=== PATIENT | male | born 1960 | race Hispanic/Latino ===

== ENCOUNTER 2017-01-07 16:45 | Emergency (ER) | payer SELFPAY ==
[2017-01-07 17:08] VITALS: BMI 23.7
[2017-01-07 17:14] VITALS: RESP 18
--- NOTE | 2017-01-07 17:43 | ED PDOC ---
"Arrival/HPI - General Chief Complaint: ENT Problem Time Seen by Provider: 01/07/17 17:41 Historian: Patient - History of Present Illness Narrative History of Present Illness (Text): 01/07/17 17:43 This 56 yo male with pmh tobacco use, presents to this ED c/o a sensation of a mass in his throat x 2-3 months. Patient stated symptoms has worsen last 2 days , and he feels this could be cancer of his throat. Patient tolerates PO fluids , and meals. Denies other complains. Time/Duration: Other (see hpi) Context: Home Past Medical History - Provider Review Nursing Documentation Reviewed: Yes - Infectious Disease Hx of Infectious Diseases: None - Tetanus Immunization Tetanus Immunization: Unknown - Cardiac Hx Cardiac Disorders: Yes Hx Hypertension: Yes - Pulmonary Hx Respiratory Disorders: Yes Hx Chronic Obstructive Pulmonary Disease (COPD): Yes - Neurological Hx Neurological Disorder: Yes Hx Seizures: Yes - HEENT Hx HEENT Disorder: No - Renal Hx Renal Disorder: No - Endocrine/Metabolic Hx Endocrine Disorders: No - Hematological/Oncological Hx Blood Disorders: No - Integumentary Hx Dermatological Disorder: No Other/Comment: red rash to ble, left knee bruise and abrasion, left arm abrasions, unkempt with dirty hands fingernails and toenails, tatoos. reddness buttocks - Musculoskeletal/Rheumatological Hx Falls: Yes - Gastrointestinal Hx Irritable Bowel: No - Genitourinary/Gynecological Hx Genitourinary Disorders: No - Psychiatric Hx Psychophysiologic Disorder: No Hx Depression: No Hx Emotional Abuse: No Hx Physical Abuse: No Hx Substance Use: No - Surgical History Hx Musculoskeletal Surgery: Yes (carpal tunnel right) - Anesthesia Hx Anesthesia: Yes Hx Anesthesia Reactions: No Hx Malignant Hyperthermia: No - Suicidal Assessment Feels Threatened In Home Enviroment: No Family/Social History - Physician Review Nursing Documentation Reviewed: Yes Family/Social History: No Known Family HX Smoking Status: Current Some Days Smoker Hx Alcohol Use: Yes Frequency of alcohol use: Socially Hx Substance Use: No Hx Substance Use Treatment: No Allergies/Home Meds Allergies/Adverse Reactions: Allergies ibuprofen [From Motrin] Allergy (Verified 01/07/17 17:09) RASH zolpidem [From Ambien] Allergy (Verified 01/07/17 17:09) HEADACHE anti inflammatories Allergy (Intermediate, Uncoded 01/07/17 17:09) SWELLING Review of Systems - Review of Systems Constitutional: Normal. absent: Fatigue, Weight Change, Fevers Eyes: Normal ENT: Other (see hpi) Respiratory: Normal Cardiovascular: Normal Gastrointestinal: Normal Genitourinary Male: Normal Musculoskeletal: Normal Skin: Normal Neurological: Normal Endocrine: Normal Hemo/Lymphatic: Normal Psychiatric: Normal Physical Exam Vital Signs Temp Pulse Resp BP Pulse Ox 01/07/17 21:42 59 L 18 171/94 H 100 01/07/17 20:36 98.2 F 60 18 181/97 H 100 01/07/17 17:13 98.4 F 72 18 200/138 H 96 Temperature: Afebrile Blood Pressure: Normal Pulse: Regular Respiratory Rate: Normal Appearance: Positive for: Well-Appearing, Non-Toxic, Comfortable Pain Distress: None Mental Status: Positive for: Alert and Oriented X 3 - Systems Exam Head: Present: Atraumatic, Normocephalic Pupils: Present: PERRL Extroacular Muscles: Present: EOMI Conjunctiva: Present: Normal Mouth: Present: Moist Mucous Membranes Neck: Present: Normal Range of Motion Respiratory/Chest: Present: Clear to Auscultation, Good Air Exchange. No: Respiratory Distress, Accessory Muscle Use Cardiovascular: Present: Regular Rate and Rhythm, Normal S1, S2. No: Murmurs Abdomen: Present: Normal Bowel Sounds. No: Tenderness, Distention, Peritoneal Signs Back: Present: Normal Inspection. No: CVA Tenderness, Midline Tenderness, Paraspinal Tenderness Upper Extremity: Present: Normal Inspection, Normal ROM, NORMAL PULSES, Temperature Abnormalties, Capillary Refill < 2s. No: Cyanosis, Edema Lower Extremity: Present: Normal Inspection, NORMAL PULSES, Normal ROM, Neurovascularly Intact, Capillary Refill < 2 s. No: Edema, CALF TENDERNESS Neurological: Present: GCS=15, CN II-XII Intact, Speech Normal, Motor Func Grossly Intact, Normal Sensory Function, Normal Cerebellar Funct, Memory Normal Skin: Present: Warm, Dry, Normal Color. No: Rashes Psychiatric: Present: Alert, Oriented x 3, Normal Insight, Normal Concentration Medical Decision Making ED Course and Treatment: 01/07/17 22:15 Re-evaluation. Patient feels better. Discussed results and plan with patient who expresses understanding. All questions answered and there is agreement with the plan to discharge home with instructions. Patient stable for discharge. Return if symptoms persist or worsen. I spoke with Dr. Hall ENT, who reviewed CT scan of neck. He feels this is a benign cyst, and that patient can have it removed as out-pt. He said to have patient see him this week, or to go to [facility] clinic, if he ca not afford his visit fee. Re-evaluation Time: 22:15 Reassessment Condition: Re-examined, Unchanged - Lab Interpretations Lab Results: 01/07/17 18:00 01/07/17 18:00 Lab Results 01/07/17 19:25: Urine Color Yellow, Urine Appearance Sl cloudy, Urine pH 6.0, Ur Specific [place] >= 1.030, Urine Protein 30 H, Urine Glucose (UA) Negative, Urine Ketones Negative, Urine Blood Small H, Urine Nitrate Negative, Urine Bilirubin Negative, Urine Urobilinogen 0.2, Ur Leukocyte Esterase Negative, Urine RBC 2 - 5, Urine WBC 2 - 5, Ur Epithelial Cells 4 - 5, Urine Bacteria Mod 01/07/17 18:00: Sodium 139, Potassium 3.7, Chloride 102, Carbon Dioxide 28, Anion Gap 13, BUN 17, Creatinine 1.1, Est GFR ( Amer) > 60, Est GFR (Non- Af Amer) > 60, Random Glucose 98, Calcium 9.2, Total Bilirubin 0.6, AST 30, ALT 28, Alkaline Phosphatase 63, Total Protein 7.4, Albumin 4.2, Globulin 3.2, Albumin/Globulin Ratio 1.3 01/07/17 18:00: WBC 8.4 D, RBC 5.13, Hgb 14.1, Hct 41.7 L, MCV 81.3, MCH 27.5, MCHC 33.8, RDW 15.4 H, Plt Count 225, MPV 10.0, Gran % 65.8, Lymph % (Auto) 26.0 , [place] % (Auto) 6.4 H, Eos % (Auto) 1.0 L, Baso % (Auto) 0.8, Gran # 5.52, Lymph # 2.2, [place] # 0.5, Eos # 0.1, Baso # 0.07 - RAD Interpretation Narrative RAD Interpretations (Text): 01/07/17 22:02 EXAM: CT Neck With Intravenous Contrast CLINICAL HISTORY: 56 years old, male; Signs and symptoms; Other: ? Foreign body feeling in throat ; Mass, lump, or FINDINGS: Brain: No acute abnormalities are seen in visualized portion of the brain. Sinuses: There is no acute sinusitis. There are retention cysts/polyps in the sinuses Ears and mastoids Middle ears and mastoids are unremarkable Orbits: Orbital contents are unremarkable. Tonsils and adenoids: Tonsils and adenoids are unremarkable. Deep facial spaces: Parapharyngeal spaces are symmetric. There are no facial masses. There is no recurrent pharyngeal/prevertebral soft tissue swelling Salivary glands: Parotid and submandibular glands are unremarkable. Airway: Nasal cavity nasopharynx and oropharynx are unremarkable. There is a fluid density mass filling the right vallecula. Left vallecula is distended with air. Epiglottis and aryepiglottic folds are unremarkable. There is healed interval is unremarkable. Subglottic trachea is normal in caliber. Thyroid: Thyroid is heterogeneous. The Vascular: There are vascular calcifications. Nodes: There is no pathologic adenopathy. Lung apices Lung apices are clear. There are multiple small blebs at the lung apices. Bony structures: There are degenerative changes in the spine. Patient is edentulous. IMPRESSION: 6.x 19 fluid density mass in the right vallecula possibly foreign body, no airway obstruction Direct visualization advised EXAM: CT Chest With Intravenous Contrast CLINICAL HISTORY: FINDINGS: Artifacts: Motion artifact degrades image quality. RENETTA MENDES | Final Radiology Report Lungs and pleural spaces: Trachea and main bronchi are patent. There is apical blebs. There is a calcified right upper lobe granuloma. The lungs are hyperinflated. There is no focal consolidation. There no effusions. Heart and vasculature: Heart size is at the upper limits of normal.There is trace fluid in pericardial recesses. Ascending aorta is prominent, 3.9 cm in diameter.Pulmonary vessels are unremarkable.There are vascular calcifications. Mediastinum: There are no pathologically enlarged mediastinal nodes. Esophagus is incompletely distended ureter and there is a small amount of fluid in the upper esophagus. There is a minimal amount of air in the mid and distal esophagus. No radio opaque foreign bodies are seen in the esophagus. There is a small hiatal hernia. Thyroid: Thyroid is not optimally demonstrated. Bones/joints: Bony structures are mildly osteopenic. There are degenerative changes. Soft tissues: unremarkable Upper abdomen: There are no acute abnormalities in the visualized portion of the abdomen. There is a small left adrenal nodule. There is mild dilatation of the infrarenal abdominal aorta, 3.2 cm maximal dimension. Air-fluid levels in proximal small bowel IMPRESSION: No acute disease in the chest, no radiopaque foreign body seen in the esophagus Additional findings as described above. Thank you for allowing us to participate in the care of your patient. Dictated and Authenticated by: Demetria Moody MD 01/07/2017 9:29 PM Eastern Time ([place] & [place]) Radiology Orders: 01/07/17 17:45 NECK,CHEST WITH CONTRAST [CT] Stat - Medication Orders Current Medication Orders: Discontinued Medications Cephalexin Monohydrate (Keflex) 500 mg PO STAT STA PRN Reason: Protocol Stop: 01/07/17 22:15 Last Admin: 01/07/17 22:37 Dose: 500 mg Sodium Chloride (Sodium Chloride 0.9%) 1,000 mls @ 999 mls/hr IV .Q1H1M STA Stop: 01/07/17 18:46 Last Admin: 01/07/17 17:52 Dose: 999 mls/hr Iohexol (Omnipaque 350 100 Ml) Confirm Administered Dose 350 mg .ROUTE .STK-MED ONE Stop: 01/07/17 18:46 Disposition/Present on Arrival - Present on Arrival Any Indicators Present on Arrival: No History of DVT/PE: No History of Uncontrolled Diabetes: No Urinary Catheter: No History of Decub. Ulcer: No History Surgical Site Infection Following: None - Disposition Have Diagnosis and Disposition been Completed?: Yes Diagnosis: Vallecular cyst, Pyuria Disposition: HOME/ ROUTINE Disposition Time: 22:16 Patient Plan: Discharge Condition: GOOD Additional Instructions: Call Dr. Nguyen ENT doctor office tomorrow to follow up visit. If you do not want to see Dr. Nguyen, you will need to go to [facility] clinic for further evaluation of your throat problem. Take medication as instructed. Call Urologist for further evaluation. Return to emergency if symptoms worsen. Department of Otolaryngology - Head and Neck Surgery [address] [facility] [address] [place] [id number] Prescriptions: Cephalexin [cephalexin] 500 mg PO BID #20 cap Referrals: Fredy Nguyen DO [Doctor Osteopathy] - Follow up with primary Ron Wilson MD [Staff Provider] - Follow up with primary [facility] [Outside] - Follow up with primary [facility] [Outside] - Follow up with primary"
[2017-01-07] MEDS ORDERED: Sodium Chloride 0.9% 1,000 ML IV STA (17:46)
[2017-01-07 18:15] LABS: BASO # 0.07 K/mm3 (0.0-2.0); BASO % 0.8 % (0.0-3.0); EOS # 0.1 (0.0-0.7); GRAN # 5.52 (1.4-6.5); GRAN % 65.8 % (50.0-68.0); HEMOGLOBIN 14.1 gm/dL (14.0-18.0); LYMPH # 2.2 (1.2-3.4); MEAN CELL VOLUME 81.3 fL (80.0-105.0); MEAN CORPUSCULAR HEMOGLOBIN 27.5 pg (25.0-35.0); MEAN CORPUSCULAR HGB CONC 33.8 g/dl (31.0-37.0); MONO # 0.5 (0.1-0.6); MONO % 6.4 % (1.0-6.0); PLATELET COUNT 225 10^3/uL (120.0-450.0); RBC 5.13 10^6/uL (3.5-6.1); RED CELL DISTRIBUTION WIDTH 15.4 % (11.5-14.5); WHITE BLOOD COUNT 8.4 10^3/ul (4.5-11.0)
[2017-01-07 18:25] LABS: ALB/GLOB RATIO 1.3 (1.1-1.8); ALBUMIN 4.2 g/dL (3.0-4.8); ALT/SGPT 28 U/L (7-56); AST/SGOT 30 U/L (15-59); BLOOD UREA NITROGEN 17 mg/dL (7-21); CALCIUM 9.2 mg/dL (8.4-10.5); GFR AFRICAN-AMERICAN > 60; GFR NON-AFRICAN AMERICAN > 60
[2017-01-07] MEDS ORDERED: Iohexol 350 MG/100 ML VIAL ONE (18:45)
[2017-01-07 19:34] LABS: URINE BILIRUBIN NEGATIVE (NEGATIVE); URINE BLOOD SMALL (NEGATIVE); URINE GLUCOSE (UA) NEGATIVE (NEGATIVE); URINE LEUKOCYTE ESTERASE NEGATIVE Leu/uL (NEGATIVE); URINE NITRATE NEGATIVE (NEGATIVE); URINE PROTEIN 30 mg/dL (<30 mg/dL); URINE UROBILINOGEN 0.2 E.U./dL (<1 E.U./dL)
[2017-01-07 19:38] LABS: URINE APPEARANCE SL CLOUDY (CLEAR); URINE COLOR YELLOW (YELLOW)
[2017-01-07 20:05] LABS: URINE BACTERIA MOD (NEG)
[2017-01-07 20:37] VITALS: TEMP 98.2; O2SAT 100
--- NOTE | 2017-01-07 21:29 | CT ---
EXAM: CT Neck With Intravenous Contrast CLINICAL HISTORY: 56 years old, male; Signs and symptoms; Other: ? Foreign body feeling in throat; Mass, lump, or swelling in neck; Additional info: Fb sensation on his throat R/O mass TECHNIQUE: Axial computed tomography images of the neck with intravenous contrast. This CT exam was performed using one or more of the following dose reduction techniques: automated exposure control, adjustment of the mA and/or kV according to patient size, and/or use of iterative reconstruction technique. Coronal and sagittal reformatted images were created and reviewed. CONTRAST: 95 mL of omni 350 administered intravenously. COMPARISON: There are no prior studies for comparison. FINDINGS: Brain: No acute abnormalities are seen in visualized portion of the brain. Sinuses: There is no acute sinusitis. There are retention cysts/polyps in the sinuses Ears and mastoids Middle ears and mastoids are unremarkable Orbits: Orbital contents are unremarkable. Tonsils and adenoids: Tonsils and adenoids are unremarkable. Deep facial spaces: Parapharyngeal spaces are symmetric. There are no facial masses. There is no recurrent pharyngeal/prevertebral soft tissue swelling Salivary glands: Parotid and submandibular glands are unremarkable. Airway: Nasal cavity nasopharynx and oropharynx are unremarkable. There is a fluid density mass filling the right vallecula. Left vallecula is distended with air. Epiglottis and aryepiglottic folds are unremarkable. There is healed interval is unremarkable. Subglottic trachea is normal in caliber. Thyroid: Thyroid is heterogeneous. The Vascular: There are vascular calcifications. Nodes: There is no pathologic adenopathy. Lung apices Lung apices are clear. There are multiple small blebs at the lung apices. Bony structures: There are degenerative changes in the spine. Patient is edentulous. IMPRESSION: 6.x 19 fluid density mass in the right vallecula possibly foreign body, no airway obstruction Direct visualization advised EXAM: CT Chest With Intravenous Contrast CLINICAL HISTORY: 56 years old, male; Signs and symptoms; Other: ? Foreign body feeling in throat; Mass, lump, or swelling in neck; Additional info: Fb sensation on his throat R/O mass TECHNIQUE: Axial computed tomography images of the chest with intravenous contrast. This CT exam was performed using one or more of the following dose reduction techniques: automated exposure control, adjustment of the mA and/or kV according to patient size, and/or use of iterative reconstruction technique. Coronal and sagittal reformatted images were created and reviewed. CONTRAST: 95 mL of omni 350 administered intravenously. EXAM DATE/TIME: 01/07/2017 5:45 PM COMPARISON: There are no prior studies for comparison. FINDINGS: Artifacts: Motion artifact degrades image quality. Lungs and pleural spaces: Trachea and main bronchi are patent. There is apical blebs. There is a calcified right upper lobe granuloma. The lungs are hyperinflated. There is no focal consolidation. There no effusions. Heart and vasculature: Heart size is at the upper limits of normal.There is trace fluid in pericardial recesses. Ascending aorta is prominent, 3.9 cm in diameter.Pulmonary vessels are unremarkable.There are vascular calcifications. Mediastinum: There are no pathologically enlarged mediastinal nodes. Esophagus is incompletely distended ureter and there is a small amount of fluid in the upper esophagus. There is a minimal amount of air in the mid and distal esophagus. No radio opaque foreign bodies are seen in the esophagus. There is a small hiatal hernia. Thyroid: Thyroid is not optimally demonstrated. Bones/joints: Bony structures are mildly osteopenic. There are degenerative changes. Soft tissues: unremarkable Upper abdomen: There are no acute abnormalities in the visualized portion of the abdomen. There is a small left adrenal nodule. There is mild dilatation of the infrarenal abdominal aorta, 3.2 cm maximal dimension. Air-fluid levels in proximal small bowel IMPRESSION: No acute disease in the chest, no radiopaque foreign body seen in the esophagus Additional findings as described above.
[2017-01-07 21:49] VITALS: PULSE 59
[2017-01-07 22:31] VITALS: BP 171/94
--- NOTE | 2017-01-08 10:52 | CARD ---
APPROVED REPORT EKG Measurement Heart [id number] <Conclusion> Normal sinus rhythm Left axis deviation Incomplete right bundle branch block Voltage criteria for left ventricular hypertrophy Abnormal ECG
== END 2017-01-07 22:39 | disposition home or self-care (01) ==
LOC: ED 16:45
DX: J38.7 Other diseases of larynx (principal); N39.0 Urinary tract infection, site not specified; F17.200 Nicotine dependence, unspecified, uncomplicated; I10 Essential (primary) hypertension
CPT/HCPCS: 70491; 71260; 80053; 81001; 85025; 93005; 96360; 99284; J7040; Q9967

== ENCOUNTER 2017-10-29 12:09 | Inpatient (IN) | payer MEDICAID ==
[2017-10-29] MEDS ORDERED: Labetalol 5 mg/ml Inj 20ML IV STA ×3 (12:38→14:34)
--- NOTE | 2017-10-29 12:40 | ED PDOC ---
Arrival/HPI - General Chief Complaint: High Blood Pressure Time Seen by Provider: 10/29/17 12:36 Historian: Patient - History of Present Illness Narrative History of Present Illness (Text): 10/29/17 12:40 56 year old male, whose PMH includes hypertension and COPD, who presents to the emergency department complaining of forgetfulness and elevated blood pressure. Patient reports he is non-compliant to his hypertension medication due to his forgetfulness. He states forgetting how he got home and also complains of a headache associated with left side of face soreness that radiates to his left arm. He also notes having less sensation on the left side of face compared to right side. Patient has no other complaints. PMD: Dr. Franco Shake Packer: Dr. Baxter Time/Duration: Prior to Arrival Symptom Onset: Sudden Symptom Course: Unchanged Past Medical History - Provider Review Nursing Documentation Reviewed: Yes - Infectious Disease Hx of Infectious Diseases: None - Tetanus Immunization Tetanus Immunization: Unknown - Cardiac Hx Cardiac Disorders: Yes Hx Hypertension: Yes - Pulmonary Hx Respiratory Disorders: Yes Hx Chronic Obstructive Pulmonary Disease (COPD): Yes - Neurological Hx Neurological Disorder: Yes Hx Seizures: Yes - HEENT Hx HEENT Disorder: No - Renal Hx Renal Disorder: No - Endocrine/Metabolic Hx Endocrine Disorders: No - Hematological/Oncological Hx Blood Disorders: No - Integumentary Hx Dermatological Disorder: No Other/Comment: red rash to ble, left knee bruise and abrasion, left arm abrasions, unkempt with dirty hands fingernails and toenails, tatoos. reddness buttocks - Musculoskeletal/Rheumatological Hx Falls: Yes - Gastrointestinal Hx Irritable Bowel: No - Genitourinary/Gynecological Hx Genitourinary Disorders: No - Psychiatric Hx Psychophysiologic Disorder: No Hx Depression: No Hx Emotional Abuse: No Hx Physical Abuse: No Hx Substance Use: No - Surgical History Hx Musculoskeletal Surgery: Yes (carpal tunnel right) - Anesthesia Hx Anesthesia: Yes Hx Anesthesia Reactions: No Hx Malignant Hyperthermia: No - Suicidal Assessment Feels Threatened In Home Enviroment: No Family/Social History - Physician Review Nursing Documentation Reviewed: Yes Family/Social History: Unknown Family HX Smoking Status: Current Some Days Smoker Hx Alcohol Use: Yes Hx Substance Use: No Hx Substance Use Treatment: No Allergies/Home Meds Allergies/Adverse Reactions: Allergies ibuprofen [From Motrin] Allergy (Verified 10/29/17 15:57) RASH naproxen [From Aleve] Allergy (Verified 10/29/17 15:57) ANAPHYLAXIS zolpidem [From Ambien] Allergy (Verified 10/29/17 15:57) HEADACHE anti inflammatories Allergy (Intermediate, Uncoded 10/29/17 15:57) SWELLING Home Medications: Home Meds Medication Instructions Recorded Confirmed Clopidogrel [Plavix] 75 mg PO DAILY 10/29/17 10/29/17 Valsartan [Diovan] 160 mg PO DAILY 10/29/17 10/29/17 amLODIPine [Norvasc] 1 tab PO DAILY 10/29/17 10/29/17 Review of Systems - Review of Systems Constitutional: absent: Fevers Eyes: absent: Vision Changes ENT: absent: Sore Throat Respiratory: absent: SOB Cardiovascular: Other (HTN). absent: Chest Pain Gastrointestinal: absent: Abdominal Pain Genitourinary Male: absent: Dysuria Musculoskeletal: absent: Back Pain Skin: absent: Rash Neurological: Headache, Focal Weakness (left sided weakness). absent: Speech Changes Physical Exam Vital Signs Reviewed: Yes Vital Signs Temp Pulse Pulse Resp BP BP Pulse Ox 10/29/17 16:16 61 16 161/103 H 97 10/29/17 15:53 66 191/105 H 10/29/17 15:08 63 184/107 H 10/29/17 15:01 63 16 179/112 H 97 10/29/17 14:23 68 188/110 H 10/29/17 13:03 77 16 167/115 H 98 10/29/17 13:00 77 227/125 H 10/29/17 12:45 77 227/135 H 10/29/17 12:42 97.9 F 91 H 18 227/135 H 96 10/29/17 12:28 97.9 F 91 H 18 227/135 H 96 Temperature: Afebrile Blood Pressure: Hypertensive Pulse: Tachycardic Respiratory Rate: Normal Appearance: Positive for: Well-Appearing, Non-Toxic, Comfortable Pain Distress: None Mental Status: Positive for: Alert and Oriented X 3 - Systems Exam Head: Present: Atraumatic, Normocephalic Pupils: Present: PERRL Extroacular Muscles: Present: EOMI Conjunctiva: Present: Normal Mouth: Present: Moist Mucous Membranes Neck: Present: Normal Range of Motion Respiratory/Chest: Present: Clear to Auscultation, Good Air Exchange. No: Respiratory Distress, Accessory Muscle Use, Wheezes, Rales, Rhonchi Cardiovascular: Present: Regular Rate and Rhythm, Normal S1, S2. No: Murmurs Abdomen: Present: Normal Bowel Sounds. No: Tenderness, Distention, Peritoneal Signs, Rebound, Guarding Upper Extremity: Present: Normal ROM, NORMAL PULSES, Tenderness (tenderness on ulnar left arm in elbow and jaw ), Neurovascularly Intact, Capillary Refill < 2s. No: Normal Inspection, Temperature Abnormalties, Deformity Lower Extremity: Present: Normal Inspection Neurological: Present: GCS=15, CN II-XII Intact, Speech Normal, Motor Func Grossly Intact. No: Normal Sensory Function (left sided weakness ) Skin: Present: Warm, Dry, Normal Color. No: Rashes Psychiatric: Present: Alert, Oriented x 3, Normal Insight, Normal Concentration Medical Decision Making ED Course and Treatment: 10/29/17 Impression: 56 year old male with tenderness on left arm ulnar side and left sided jaw Differential Diagnosis included but are not limited to: hypertension urgency vs. cardiac Plan: -- CT head -- EKG -- Chest X-ray -- Labs -- Trandate -- Urinalysis -- Reassess and disposition Progress Notes: EKG: Ordered, reviewed, and independently interpreted the EKG. Rate : 77 BPM Rhythm : NSR Interpretation : LAD. syncope BBB. no change from previous Comparison : 05/07/2017 10/29/17 13:30 On reevaluation, patient's high blood pressure has improved after Labetolol IV 10mg, then 20mg then Clonidine and Labetolol 40mg IV again. 10/29/17 14:35 Case was discussed with Dr. Saleh who advices to admit under hospitalist. 10/29/2017 14:40 Case discussed with senior medical writer, under supervision of Dr. Birmingham, who is aware of plan in admitting patient to telemetry. 10/29/17 14:40 Chest X-ray: Creator : Gelacio Calix MD COMPARISON: 05/07/2017 FINDINGS: LUNGS: Clear. PLEURA: No pneumothorax or pleural fluid seen. CARDIOVASCULAR: Normal. OSSEOUS STRUCTURES: No significant abnormalities. VISUALIZED UPPER ABDOMEN: Normal. OTHER FINDINGS: None. IMPRESSION: No active disease. 10/29/17 15:[address]: Creator : Alirio Figueroa MD FINDINGS: HEMORRHAGE:No intracranial hemorrhage. BRAIN:Normal black-white matter differentiation and density are appreciated throughout the cerebrum and cerebellum with the brainstem appearing unremarkable as well. There is no mass effect. There is no suspicious extra- axial fluid collection and the midline brain anatomy appears diffusely unremarkable. Probable dilated perivascular space is seen at the inferior right basal ganglia once again. VENTRICLES:Unremarkable. No hydrocephalus. CALVARIUM:Unremarkable. PARANASAL SINUSES:Unremarkable as visualized. No significant inflammatory changes. MASTOID AIR CELLS:Left maxi sinus polyp or cyst with remaining sinuses now clear in the interval. OTHER FINDINGS:None. IMPRESSION: No acute intracranial findings with examination gently remaining grossly normal-appearing intracranially. The incidental prior diffuse sinusitis pattern appears to have largely resolved with exception of a asir-gd-pepriivu left maxillary sinus polyp or retention cyst. - Critical Care Critical Care Minutes: 30 minutes - Lab Interpretations Lab Results: 10/29/17 12:55 10/29/17 12:55 Lab Results 10/29/17 12:55: TSH 3rd Generation 0.33 L 10/29/17 12:55: Triglycerides 109, Cholesterol 182, LDL Cholesterol Direct 85, HDL Cholesterol 67 H 10/29/17 12:55: Sodium 143, Potassium 4.1, Chloride 106, Carbon Dioxide 25, Anion Gap 16, BUN 16, Creatinine 1.0, Est GFR ( Amer) > 60, Est GFR (Non- Af Amer) > 60, Random Glucose 91, Calcium 9.6, Magnesium 1.8, Total Bilirubin 0.6, AST 24, ALT 28, Alkaline Phosphatase 76, Lactate Dehydrogenase 444, Total Creatine Kinase 42, Troponin I < 0.01, Total Protein 7.5, Albumin 4.3, Globulin 3.2, Albumin/Globulin Ratio 1.3 10/29/17 12:55: PT 10.7, INR 0.93, APTT 29.2 10/29/17 12:55: WBC 7.3 D, RBC 5.22, Hgb 14.9, Hct 44.5, MCV 85.2, MCH 28.5, MCHC 33.5, RDW 15.9 H, Plt Count 199, MPV 9.6, Gran % 71.2 H, Lymph % (Auto) 19.6 L, Foster % (Auto) 6.5 H, Eos % (Auto) 2.0, Baso % (Auto) 0.7, Gran # 5.21, Lymph # (Auto) 1.4, Foster # (Auto) 0.5, Eos # (Auto) 0.2, Baso # (Auto) 0.05 I have reviewed the lab results: Yes - RAD Interpretation Radiology Orders: 10/29/17 12:37 CHEST ONE VIEW [RAD] Stat 10/29/17 12:38 HEAD W/O CONTRAST [CT] Stat Quantity Surveyor: Radiologist - EKG Interpretation Interpreted by ED Physician: Yes Type: 12 lead EKG - Medication Orders Current Medication Orders: Acetaminophen (Tylenol 325mg Tab) 650 mg PO Q6H PRN PRN Reason: Headache Albuterol/Ipratropium (Duoneb 3 Mg/0.5 Mg (3 Ml) Ud) 3 ml IH Q2H PRN PRN Reason: Shortness of Breath Amlodipine Besylate (Norvasc) 5 mg PO DAILY [facility] Last Admin: 10/29/17 18:01 Dose: 5 mg MAR Pulse and Blood Pressure Document 10/29/17 18:01 LORI (Rec: 10/29/17 18:01 [facility] [id number]) Pulse Pulse Rate (60-90) 78 Blood Pressure Blood Pressure (100/60-150/90) 160/103 Clopidogrel Bisulfate (Plavix) 75 mg PO DAILY [facility] Last Admin: 10/29/17 18:01 Dose: 75 mg Famotidine (Pepcid) 40 mg PO HS [facility] Hydralazine HCl (Apresoline) 10 mg IVP Q6H PRN PRN Reason: Systolic Blood Pressure Lorazepam (Ativan) 1 mg IVP Q6H PRN; Protocol PRN Reason: Anxiety Losartan Potassium (Cozaar) 100 mg PO DAILY [facility] Last Admin: 10/29/17 18:01 Dose: 100 mg Nicotine (Nicoderm Cq) 1 patch TD DAILY [facility] Discontinued Medications Aspirin (Aspirin Chewable) 162 mg PO STAT STA Stop: 10/29/17 13:48 Last Admin: 10/29/17 14:22 Dose: 162 mg Clonidine HCl (Catapres) 0.2 mg PO STAT STA Stop: 10/29/17 14:58 Last Admin: 10/29/17 15:08 Dose: 0.2 mg MAR Pulse and Blood Pressure Document 10/29/17 15:08 ANI (Rec: 10/29/17 15:08 ANI [id number]) Pulse Pulse Rate (60-90) 63 Blood Pressure Blood Pressure (100/60-150/90) 184/107 Labetalol HCl (Trandate) 20 mg IV STAT STA Stop: 10/29/17 12:39 Last Admin: 10/29/17 13:00 Dose: 10 mg Comments: bp 167/[address] Hernandez made aware. Remaining dose held. eMAR Start Stop Document 10/29/17 13:00 ANI (Rec: 10/29/17 13:01 ANI [id number]) Intravenous Solution Start Date 10/29/17 Start Time 12:55 End Date 10/29/17 End time 12:57 Total Infusion Time 2 MAR Pulse and Blood Pressure Document 10/29/17 13:00 ANI (Rec: 10/29/17 13:01 ANI [id number]) Pulse Pulse Rate (60-90) 77 Blood Pressure Blood Pressure (100/60-150/90) 227/125 Labetalol HCl (Trandate) 20 mg IV STAT STA Stop: 10/29/17 14:04 Last Admin: 10/29/17 14:23 Dose: 20 mg eMAR Start Stop Document 10/29/17 14:23 ANI (Rec: 10/29/17 14:23 ANI [id number]) Intravenous Solution Start Date 10/29/17 Start Time 14:23 End Date 10/29/17 End time 14:28 Total Infusion Time 5 MAR Pulse and Blood Pressure Document 10/29/17 14:23 ANI (Rec: 10/29/17 14:23 ANI [id number]) Pulse Pulse Rate (60-90) 68 Blood Pressure Blood Pressure (100/60-150/90) 188/110 Labetalol HCl (Trandate) 40 mg IV STAT STA Stop: 10/29/17 14:35 Last Admin: 10/29/17 15:53 Dose: 40 mg eMAR Start Stop Document 10/29/17 15:53 ANI (Rec: 10/29/17 15:53 ANI [id number]) Intravenous Solution Start Date 10/29/17 Start Time 15:51 End Date 10/29/17 End time 15:53 Total Infusion Time 2 MAR Pulse and Blood Pressure Document 10/29/17 15:53 ANI (Rec: 10/29/17 15:53 ANI [id number]) Pulse Pulse Rate (60-90) 66 Blood Pressure Blood Pressure (100/60-150/90) 191/105 - Scribe Statement The provider has reviewed the documentation as recorded by the Scribe Shellie Kennedy Provider Scribe Attestation: All medical record entries made by the Scribe were at my direction and personally dictated by me. I have reviewed the chart and agree that the record accurately reflects my personal performance of the history, physical exam, medical decision making, and the department course for this patient. I have also personally directed, reviewed, and agree with the discharge instructions and disposition. Disposition/Present on Arrival - Present on Arrival Any Indicators Present on Arrival: No History of DVT/PE: No History of Uncontrolled Diabetes: No Urinary Catheter: No History of Decub. Ulcer: No History Surgical Site Infection Following: None - Disposition Have Diagnosis and Disposition been Completed?: Yes Diagnosis: Hypertensive urgency, Jaw pain, Left arm pain Disposition: HOSPITALIZED Disposition Time: 14:40 Patient Plan: Admission Patient Problems: Current Active Problems Problem Status Onset Hypertensive urgency Acute Jaw pain Acute Left arm pain Acute Condition: GUARDED
[2017-10-29 13:10] LABS: BASO # 0.05 K/mm3 (0.0-2.0); BASO % 0.7 % (0.0-3.0); EOS # 0.2 (0.0-0.7); GRAN # 5.21 (1.4-6.5); GRAN % 71.2 % (50.0-68.0); HEMOGLOBIN 14.9 g/dL (14.0-18.0); LYMPH # 1.4 (1.2-3.4); LYMPH % 19.6 % (22.0-35.0); MEAN CELL VOLUME 85.2 fl (80.0-105.0); MEAN CORPUSCULAR HEMOGLOBIN 28.5 pg (25.0-35.0); MEAN CORPUSCULAR HGB CONC 33.5 g/dl (31.0-37.0); MEAN PLATELET VOLUME 9.6 fl (7.0-11.0); MONO # 0.5 (0.1-0.6); MONO % 6.5 % (1.0-6.0); RBC 5.22 10^6/uL (3.5-6.1); RED CELL DISTRIBUTION WIDTH 15.9 % (11.5-14.5); WHITE BLOOD COUNT 7.3 10^3/ul (4.5-11.0)
[2017-10-29 13:12] LABS: ALB/GLOB RATIO 1.3 (1.1-1.8); ALBUMIN 4.3 g/dL (3.0-4.8); ALT/SGPT 28 U/L (7-56); AST/SGOT 24 U/L (17-59); BLOOD UREA NITROGEN 16 mg/dL (7-21); CALCIUM 9.6 mg/dL (8.4-10.5); GFR AFRICAN-AMERICAN > 60; GFR NON-AFRICAN AMERICAN > 60
[2017-10-29 13:13] LABS: INR 0.93 (0.93-1.08); PARTIAL THROMBOPLASTIN TIME 29.2 Seconds (25.1-36.5); PROTHROMBIN TIME 10.7 SECONDS (9.4-12.5)
[2017-10-29 13:23] LABS: TROPONIN I < 0.01 ng/mL
--- NOTE | 2017-10-29 13:45 | CT ---
PROCEDURE: CT HEAD WITHOUT CONTRAST. HISTORY: hypertensive, left arm/pain COMPARISON: Unenhanced head CT 04/06/2017. TECHNIQUE: Axial computed tomography images were obtained through the head/brain without intravenous contrast. Radiation dose: Total exam DLP = 1091.50 mGy-cm. This CT exam was performed using one or more of the following dose reduction techniques: Automated exposure control, adjustment of the mA and/or kV according to patient size, and/or use of iterative reconstruction technique. FINDINGS: HEMORRHAGE: No intracranial hemorrhage. BRAIN: Normal black-white matter differentiation and density are appreciated throughout the cerebrum and cerebellum with the brainstem appearing unremarkable as well. There is no mass effect. There is no suspicious extra-axial fluid collection and the midline brain anatomy appears diffusely unremarkable. Probable dilated perivascular space is seen at the inferior right basal ganglia once again. VENTRICLES: Unremarkable. No hydrocephalus. CALVARIUM: Unremarkable. PARANASAL SINUSES: Unremarkable as visualized. No significant inflammatory changes. MASTOID AIR CELLS: Left maxi sinus polyp or cyst with remaining sinuses now clear in the interval. OTHER FINDINGS: None. IMPRESSION: No acute intracranial findings with examination gently remaining grossly normal-appearing intracranially. The incidental prior diffuse sinusitis pattern appears to have largely resolved with exception of a [id number]-[id number] left maxillary sinus polyp or retention cyst.
--- NOTE | 2017-10-29 14:01 | RAD ---
PROCEDURE: CHEST RADIOGRAPH, 1 VIEW HISTORY: jaw/arm pain COMPARISON: 05/07/2017 FINDINGS: LUNGS: Clear. PLEURA: No pneumothorax or pleural fluid seen. CARDIOVASCULAR: Normal. OSSEOUS STRUCTURES: No significant abnormalities. VISUALIZED UPPER ABDOMEN: Normal. OTHER FINDINGS: None. IMPRESSION: No active disease.
--- NOTE | 2017-10-29 16:30 | CP.PCM.HP ---
<Rashi Izquierdo - Last Filed: 10/29/17 16:13> History of Present Illness - History of Present Illness History of Present Illness: CC: High blood pressure HPI: Pt is a 56 yo M with PMH of HTN and COPD presents to [facility] due to a one day history of FIGUEROA and high blood pressure. Patient did not measure BP at home, but could tell his BP was up due to FIGUEROA, decreased left face sensation that radiated to left arm. Patient went to his PMD which told him to seek evaluation at the [facility] ED. Pt states that he walked to [facility]. Pt is on medications for HTN, but does not know which ones he's supposed to be taking and admits to sporadically taking his medications. Patient states that he is forgetful, which is the reason why he does not take his medications as scheduled. Patient also admits to suicidal thoughts without a plan, but states that he does not care if he gets hurt. Pt denies CP, SOB, nausea, vomiting, diarrhea, abdominal pain, fever , chills, dizziness, acute change in vision or hearing. PMD: [place] PMH: HTN, COPD Surg: carpel tunnel repair All: Ibuprofen, naproxen, zolpidem SH: 1 ppd for 40 yrs, EtOH multiple times per week, heroin (sniff and IV), and cocaine (sniff) use FHx: non-contributory Medications: - Valsartan 160 mg PO daily - Norvasc 5 mg PO daily - Plavix 75 mg PO daily - Meclizine TID prn Present on Admission - Present on Admission Any Indicators Present on Admission: No Review of Systems - Review of Systems Review of Systems: 12 point ROS reviewed and is negative other than what is stated in HPI. Past Patient History - Infectious Disease Hx of Infectious Diseases: None - Tetanus Immunizations Tetanus Immunization: Unknown - Past Social History Smoking Status: Current Some Days Smoker - CARDIAC Hx Cardiac Disorders: Yes Hx Hypertension: Yes - PULMONARY Hx Respiratory Disorders: Yes Hx Chronic Obstructive Pulmonary Disease (COPD): Yes - NEUROLOGICAL Hx Neurological Disorder: Yes Hx Seizures: Yes - HEENT Hx HEENT Problems: No - RENAL Hx Chronic Kidney Disease: No - ENDOCRINE/METABOLIC Hx Endocrine Disorders: No - HEMATOLOGICAL/ONCOLOGICAL Hx Blood Disorders: No - INTEGUMENTARY Hx Dermatological Problems: No Other/Comment: red rash to ble, left knee bruise and abrasion, left arm abrasions, unkempt with dirty hands fingernails and toenails, tatoos. reddness buttocks - MUSCULOSKELETAL/RHEUMATOLOGICAL Hx Falls: Yes - GASTROINTESTINAL Hx Irritable Bowel: No - GENITOURINARY/GYNECOLOGICAL Hx Genitourinary Disorders: No - PSYCHIATRIC Hx Psychophysiologic Disorder: No Hx Depression: No Hx Emotional Abuse: No Hx Physical Abuse: No Hx Substance Use: No - SURGICAL HISTORY Hx Musculoskeletal Surgery: Yes (carpal tunnel right) - ANESTHESIA Hx Anesthesia: Yes Hx Anesthesia Reactions: No Hx Malignant Hyperthermia: No Meds Allergies/Adverse Reactions: Allergies Allergy/AdvReac Type Severity Reaction Status Date / Time ibuprofen [From Motrin] Allergy RASH Verified 10/29/17 15:57 naproxen [From Aleve] Allergy ANAPHYLAXIS Verified 10/29/17 15:57 zolpidem [From Ambien] Allergy HEADACHE Verified 10/29/17 15:57 anti inflammatories Allergy Intermediate SWELLING Uncoded 10/29/17 15:57 Physical Exam - Constitutional Appears: No Acute Distress - Head Exam Head Exam: NORMAL INSPECTION - Eye Exam Eye Exam: Normal appearance - ENT Exam ENT Exam: Normal Exam - Neck Exam Neck exam: Positive for: Normal Inspection - Respiratory Exam Respiratory Exam: Clear to Auscultation Bilateral. absent: Rales, Rhonchi, Wheezes - Cardiovascular Exam Cardiovascular Exam: RRR, +S1, +S2. absent: Diastolic murmur, Gallop, Rubs, Systolic Murmur - GI/Abdominal Exam GI & Abdominal Exam: Soft. absent: Distended, Guarding, Rebound, Tenderness - Extremities Exam Extremities exam: Positive for: normal inspection - Back Exam Back exam: NORMAL INSPECTION - Neurological Exam Neurological exam: Alert, CN II-XII Intact, Oriented x3 - Psychiatric Exam Psychiatric exam: Depressed, Flat Affect - Skin Skin Exam: Dry, Intact, Normal Color, Warm Results - Vital Signs Recent Vital Signs: Last Vital Signs Temp 97.9 F 10/29/17 12:42 Pulse 66 10/29/17 15:53 Resp 16 10/29/17 15:01 BP 191/105 H 10/29/17 15:53 Pulse Ox 97 10/29/17 15:01 - Labs Result Diagrams: 10/29/17 12:55 10/29/17 12:55 Assessment & Plan - Assessment and Plan (Free Text) Assessment: 56 yo M with PMH of HTN and COPD admitted for evaluation and treatment for hypertensive urgency. Plan: 1. Hypertensive urgency - BP 227/135 on admission, BP 161/103 after medications in ED - Clonidine 0.2 mg PO and Labetalol 80 mg IVP given overall in ED - EKG: rate 77, LAD, RBBB, unchanged from past EKG - CXR negative - Head CT negative for acute intracranial process, showed sinusitis and left maxillary polyp or retention cyst - F/u lipid panel, HgbA1c, TSH - Cont home meds: Losartan, Norvasc, Plavix - Hydralazine prn for SBP > 180 - Counselled patient on importance of medication compliance and risks associated with untreated HTN - Neuro consulted 2. Suicidal Ideation - 1:1 observation - Psych consulted 3. Polysubstance abuse - UDS - Hepatitis panel - HIV - Counselled patient on risks of drug, tobacco, and EtOH use and advised cessation 4. COPD - Duoneb prn GI/DVT PPx - Pepcid - SCD Pt was seen and discussed in detail with Dr. Gongora. Theodore Izquierdo, PGY1 <Van Gongora - Last Filed: 10/29/17 18:20> Results - Vital Signs Recent Vital Signs: Last Vital Signs Temp 97.9 F 10/29/17 12:42 Pulse 78 10/29/17 18:01 Resp 16 10/29/17 16:16 BP 160/103 H 10/29/17 18:01 Pulse Ox 97 10/29/17 16:16 - Labs Result Diagrams: 10/29/17 12:55 10/29/17 12:55 Attending/Attestation - Attestation I have personally seen and examined this patient.: Yes I have fully participated in the care of the patient.: Yes I have reviewed all pertinent clinical information: Yes Notes (Text): 10/29/17 18:13 attending note; Patient seen and examined with resident in ER. Patient is a 56 -year-old male with PMH of hypertension, opiate abuse, cocaine abuse, alcohol abuse, active smoking and COPD is admitted for uncontrolled blood pressure and decreased sensation on the left side of the face and arm. The patient was evaluated by PMD in the office and was referred to the ER. Patient is a very poor historian. Patient also has history of active drug abuse. currently blood pressure is improving after IV metoprolol. Admit to telemetry. EKG showed nonspecific ST-T changes. Cardiac enzymes 1 negative. Echocardiogram ordered. Cardiology evaluation requested. currently Patient denies any headache. Denies any chest pain. Denies any shortness of breath. CT head is negative. Neurology evaluation requested. Patient is complaining of generalized muscle weakness. Possibly secondary to drug abuse. We'll get physical therapy evaluation. patient is complaining of severe depression. Patient is expressing some concern about ending his life. One-to-one observation ordered. Psychiatric evaluation requested. Patient with a previous history of depression on was on Paxil long time ago. active smoking; smoking cessation is advised. Started on NicoDerm patch. Alcohol abuse; alcohol cessation is advised. started on ciwa protocol. active IV heroin abuse. Monitor closely. Denies any history of HIV and hepatitis. HIV, hepatitis profile ordered. Complete drug abuse cessation Is strongly advised. social media developer evaluation requested for discharge planning. upon discharge the patient will follow-up with PMD Dr. Franco.
[2017-10-29] MEDS ORDERED: Albuterol-Ipratrop 3 mg / 0.5 (3 ml) UD IH PRN (16:38)
[2017-10-29 17:13] LABS: HDL CHOLESTEROL 67 mg/dL (29-60)
[2017-10-29 17:47] LABS: LDL CHOLESTEROL 85 mg/dL (0-129)
[2017-10-29 18:22] LABS: URINE BILIRUBIN NEGATIVE (NEGATIVE); URINE BLOOD NEGATIVE (NEGATIVE); URINE GLUCOSE (UA) NEGATIVE (NEGATIVE); URINE LEUKOCYTE ESTERASE NEGATIVE Leu/uL (NEGATIVE); URINE PROTEIN 30 mg/dL (<30 mg/dL); URINE UROBILINOGEN 0.2 E.U./dL (<1 E.U./dL)
[2017-10-29 18:23] LABS: URINE APPEARANCE CLEAR (CLEAR); URINE COLOR YELLOW (YELLOW)
[2017-10-29 18:25] LABS: URINE BACTERIA TRACE (NEG); URINE EPITHELIAL CELLS 0 - 2 /hpf (0-5); URINE RBC 0 - 2 /hpf (0-2); URINE WBC 0 - 2 /hpf (0-6)
[2017-10-29 18:43] LABS: BARBITURATES, UR NEGATIVE (NEGATIVE)
[2017-10-29 18:44] LABS: OPIATES, UR POSITIVE (NEGATIVE); PHENCYCLIDINE, UR NEGATIVE (NEGATIVE)
[2017-10-29 19:02] LABS: BENZODIAZEPINES, UR POSITIVE (NEGATIVE)
[2017-10-29 21:46] VITALS: BMI 26.9
[2017-10-29] MEDS ORDERED: Pneumococcal 23-Valent Vaccine IM ONE (21:46)
--- NOTE | 2017-10-29 22:21 | CARD ---
APPROVED REPORT EKG Measurement Heart [id number] <Conclusion> Normal sinus rhythm Possible Left atrial enlargement Left axis deviation Incomplete right bundle branch block Left ventricular hypertrophy Cannot rule out Septal infarct, age undetermined Abnormal ECG
[2017-10-30 06:29] LABS: MEAN CELL VOLUME 85.1 fl (80.0-105.0); MEAN CORPUSCULAR HGB CONC 32.9 g/dl (31.0-37.0); MEAN PLATELET VOLUME 9.7 fl (7.0-11.0); RBC 4.64 10^6/uL (3.5-6.1); RED CELL DISTRIBUTION WIDTH 15.8 % (11.5-14.5); WHITE BLOOD COUNT 5.4 10^3/ul (4.5-11.0)
[2017-10-30 06:57] LABS: TROPONIN I 0.01 ng/mL
[2017-10-30 07:02] LABS: T4 8.4 ug/dL (5.5-11.0)
[2017-10-30 07:15] LABS: T3 1.13 ng/mL (0.97-1.69)
[2017-10-30 07:33] LABS: ALB/GLOB RATIO 1.3 (1.1-1.8); ALBUMIN 3.6 g/dL (3.0-4.8); ALT/SGPT 20 U/L (7-56); AST/SGOT 28 U/L (17-59); BLOOD UREA NITROGEN 17 mg/dL (7-21); CALCIUM 9.1 mg/dL (8.4-10.5); GFR AFRICAN-AMERICAN > 60; GFR NON-AFRICAN AMERICAN > 60
--- NOTE | 2017-10-30 10:29 | CP.PCM.CON ---
History of Present Illness - History of Present Illness History of Present Illness: Neurology Consult Note - Dr. Gomez CC: High BP/left jaw and left arm pain HPI: 56 M with a PMHx of HTN, COPD, seizures x 3, and polysubstance abuse ( IVDU heroin last used yesterday, tobacco, ETOH, cocaine sniff) presenting to the [facility] ED at the suggestion of PMD. Pt has been noncompliant with his medications for the past week. Pt has complaints of intermittent headaches, and left facial numbness and tingling and b/l lower extremity pain described as a muscle ache and throbbing and tingling in nature. Pt states that the onset of his symptoms began worsening roughly 3 days ago, however has been with the symptoms for "weeks" , prompting him to seek medical attention by his PMD, who then suggested he be further evaluated at [facility]. In the ED his BP read 227/ 135. Pt was seen and examined at bedside. Pt admitted to lightheadedness this morning. Pt still is depressed and expressed interest in speaking to someone. Pt denied fever, chills, shortness of breath, chest pains, abdominal pains, nausea, vomiting, diarrhea, constipation or dysuria. PMH: HTN, COPD, seizures, and polysubstance abuse PSHx: carpel tunnel repair SHx: 1 ppd for 40 yrs, EtOH multiple times per week, previous abuse, heroin ( sniff and IV), and cocaine (sniff), track wan visible FHx: non-contributory All: Ibuprofen, naproxen, zolpidem Meds - Noncompliant: Valsartan 160 mg PO daily, Norvasc 5 mg PO daily, Plavix 75 mg PO daily, Meclizine TID prn Review of Systems - Review of Systems Review of Systems: as per HPI otherwise negative Past Patient History - Infectious Disease Hx of Infectious Diseases: None - Tetanus Immunizations Tetanus Immunization: Unknown - Past Social History Smoking Status: Current Some Days Smoker - CARDIAC Hx Cardiac Disorders: Yes Hx Hypertension: Yes - PULMONARY Hx Respiratory Disorders: Yes (SMOKES 1 PPD X 40 YRS) Hx Chronic Obstructive Pulmonary Disease (COPD): Yes - NEUROLOGICAL Hx Neurological Disorder: Yes Hx Seizures: Yes - HEENT Hx HEENT Problems: No - RENAL Hx Chronic Kidney Disease: No - ENDOCRINE/METABOLIC Hx Endocrine Disorders: No - HEMATOLOGICAL/ONCOLOGICAL Hx Blood Disorders: No - INTEGUMENTARY Hx Dermatological Problems: Yes Other/Comment: red rash to ble, left knee bruise and abrasion, left arm abrasions, unkempt with dirty hands fingernails and toenails, tatoos. reddness buttocks - MUSCULOSKELETAL/RHEUMATOLOGICAL Hx Musculoskeletal Disorders: Yes Hx Falls: Yes - GASTROINTESTINAL Hx Irritable Bowel: No - GENITOURINARY/GYNECOLOGICAL Hx Genitourinary Disorders: No - PSYCHIATRIC Hx Psychophysiologic Disorder: Yes (HEROIN AND COCAINE ABUSE,SNIFFS IVDU,DRINKS ALCOHOL ON OCCASION,SMOKES CIGA) Hx Depression: No Hx Emotional Abuse: No Hx Physical Abuse: No Hx Substance Use: Yes (HEROIN,COCAINE SNIFFS,IVDU.LAST USED TODAY) - SURGICAL HISTORY Hx Surgeries: Yes Hx Musculoskeletal Surgery: Yes (carpal tunnel right) - ANESTHESIA Hx Anesthesia: Yes Hx Anesthesia Reactions: No Hx Malignant Hyperthermia: No Meds Allergies/Adverse Reactions: Allergies Allergy/AdvReac Type Severity Reaction Status Date / Time ibuprofen [From Motrin] Allergy RASH Verified 10/29/17 15:57 naproxen [From Aleve] Allergy ANAPHYLAXIS Verified 10/29/17 15:57 zolpidem [From Ambien] Allergy HEADACHE Verified 10/29/17 15:57 anti inflammatories Allergy Intermediate SWELLING Uncoded 10/29/17 15:57 - Medications Medications: Current Medications Acetaminophen (Tylenol 325mg Tab) 650 mg PO Q6H PRN PRN Reason: Headache Albuterol/Ipratropium (Duoneb 3 Mg/0.5 Mg (3 Ml) Ud) 3 ml IH Q2H PRN PRN Reason: Shortness of Breath Amlodipine Besylate (Norvasc) 5 mg PO DAILY [facility] Last Admin: 10/30/17 08:23 Dose: 5 mg Clopidogrel Bisulfate (Plavix) 75 mg PO DAILY [facility] Last Admin: 10/30/17 08:24 Dose: 75 mg Famotidine (Pepcid) 40 mg PO HS [facility] Last Admin: 10/29/17 22:25 Dose: 40 mg Hydralazine HCl (Apresoline) 10 mg IVP Q6H PRN PRN Reason: Systolic Blood Pressure Lorazepam (Ativan) 1 mg IVP Q6H PRN; Protocol PRN Reason: Anxiety Last Admin: 05/03/18 21:04 Dose: 1 mg Losartan Potassium (Cozaar) 100 mg PO DAILY [facility] Last Admin: 10/30/17 08:24 Dose: 100 mg Nicotine (Nicoderm Cq) 1 patch TD DAILY [facility] Last Admin: 10/30/17 08:24 Dose: 1 patch Physical Exam - Constitutional Appears: No Acute Distress, Chronically Ill - Head Exam Head Exam: ATRAUMATIC, NORMAL INSPECTION, NORMOCEPHALIC - Eye Exam Eye Exam: EOMI, Normal appearance, PERRL Pupil Exam: NORMAL ACCOMODATION, PERRL - ENT Exam ENT Exam: Mucous Membranes Moist, Normal Exam - Neck Exam Neck exam: Positive for: Normal Inspection - Respiratory Exam Respiratory Exam: Clear to Auscultation Bilateral, NORMAL BREATHING PATTERN - Cardiovascular Exam Cardiovascular Exam: REGULAR RHYTHM, +S1, +S2 - GI/Abdominal Exam GI & Abdominal Exam: Normal Bowel Sounds, Soft. absent: Tenderness - Neurological Exam Neurological exam: Alert, CN II-XII Intact, Normal Gait, Oriented x3, Reflexes Normal - Expanded Neurological Exam Expanded Patient oriented to: person, place, time Cranial nerves: EOM's Intact: Normal, Facial Palsey w/Forehead Movement: Normal , Facial Palsey w/o Forehead Movement: Normal, Facial Sensation: Abnormal Left, Gag Reflex: Normal, Nystagmus: Normal, Tongue Deviation: Normal Cerebellar Function: Finger to Nose: Normal, Heel to Marroquin: Normal, Romberg: Normal Upper motor neuron: Pronator Drift: Normal Sensory exam: Lower Extremity 2 Point Discrimination: Normal, Lower Extremity Light Touch: Normal, Lower Extremity Pin Prick: Normal, Lower Extremity Temperature: Normal, Upper Extremity 2 Point Discrimination: Normal, Upper Extremity Light Touch: Normal, Upper Extremity Pin Prick: Normal, Upper Extremity Temperature: Normal Neuro motor strength exam: Left Upper Extremity: 4, Right Upper Extremity: 4, Left Lower Extremity: 4, Right Lower Extremity: 4 DTR: Achilles Tendon Left: 2+, Achilles Tendon Right: 2+, Bicep Left: 2+, Bicep Right: 2+, Brachioradialis Left: 2+, Brachioradialis Right: 2+, Patellar Left: 2 +, Patellar Right: 2+, Tricep Left: 2+, Tricep Right: 2+ - Psychiatric Exam Psychiatric exam: Normal Affect, Normal Mood - Skin Skin Exam: Dry, Intact, Normal Color, Warm Results - Vital Signs Recent Vital Signs: Last Vital Signs Temp 97.8 F 10/30/17 06:00 Pulse 62 10/30/17 06:00 Resp 18 10/30/17 06:00 BP 170/114 H 10/30/17 06:00 Pulse Ox 98 10/30/17 06:00 - Labs Result Diagrams: 10/30/17 05:45 10/30/17 05:45 Labs: Laboratory Results - last 24 hr 10/29/17 10/29/17 10/30/17 18:14 18:14 05:45 WBC 5.4 D RBC 4.64 Hgb 13.0 L Hct 39.5 L MCV 85.1 MCH 28.0 MCHC 32.9 RDW 15.8 H Plt Count 187 MPV 9.7 Sodium Potassium Chloride Carbon Dioxide Anion Gap BUN Creatinine Est GFR ( Amer) Est GFR (Non-Af Amer) Random Glucose Calcium Phosphorus Magnesium Total Bilirubin AST ALT Alkaline Phosphatase Lactate Dehydrogenase Total Creatine Kinase Troponin I Total Protein Albumin Globulin Albumin/Globulin Ratio Thyroxine (T4) Total T3 TSH 3rd Generation Urine Color Yellow Urine Appearance Clear Urine pH 7.0 Ur Specific [place] 1.025 Urine Protein 30 H Urine Glucose (UA) Negative Urine Ketones 15 H Urine Blood Negative Urine Nitrate Negative Urine Bilirubin Negative Urine Urobilinogen 0.2 Ur Leukocyte Esterase Negative Urine RBC 0 - 2 Urine WBC 0 - 2 Ur Epithelial Cells 0 - 2 Urine Bacteria Trace Urine Opiates Screen Positive H Urine Methadone Screen Negative Ur Barbiturates Screen Negative Ur Phencyclidine Scrn Negative Ur Amphetamines Screen Negative U Benzodiazepines Scrn Positive H U Oth Cocaine Metabols Positive H U Cannabinoids Screen Negative 10/30/17 10/30/17 05:45 05:45 WBC RBC Hgb Hct MCV MCH MCHC RDW Plt Count MPV Sodium 141 Potassium 3.8 Chloride 106 Carbon Dioxide 27 Anion Gap 12 BUN 17 Creatinine 1.0 Est GFR ( Amer) > 60 Est GFR (Non-Af Amer) > 60 Random Glucose 95 Calcium 9.1 Phosphorus 3.5 Magnesium 1.9 Total Bilirubin 0.5 AST 28 ALT 20 Alkaline Phosphatase 60 Lactate Dehydrogenase 338 Total Creatine Kinase 28 L Troponin I 0.01 Total Protein 6.4 Albumin 3.6 Globulin 2.8 Albumin/Globulin Ratio 1.3 Thyroxine (T4) 8.4 Total T3 1.13 TSH 3rd Generation 0.57 Urine Color Urine Appearance Urine pH Ur Specific [place] Urine Protein Urine Glucose (UA) Urine Ketones Urine Blood Urine Nitrate Urine Bilirubin Urine Urobilinogen Ur Leukocyte Esterase Urine RBC Urine WBC Ur Epithelial Cells Urine Bacteria Urine Opiates Screen Urine Methadone Screen Ur Barbiturates Screen Ur Phencyclidine Scrn Ur Amphetamines Screen U Benzodiazepines Scrn U Oth Cocaine Metabols U Cannabinoids Screen Assessment & Plan - Assessment and Plan (Free Text) Assessment: 56 M with a PMHx of HTN, COPD, seizures x 3, and polysubstance abuse ( IVDU heroin last used yesterday, tobacco, ETOH, cocaine sniff) presenting to the [facility] ED at the suggestion of PMD for HTN emergency with a BP of 220s/130s. Pt would benefit from an MRI for further assessment. Pt needs proper BP control. Psych on board for suicidal ideation and is on 1;1 for patient safety. Continue medical management as per primary team. Will reassess after MRI.
--- NOTE | 2017-10-30 10:54 | CP.PCM.PN ---
<Rashi Izquierdo - Last Filed: 10/30/17 10:46> Subjective - Date & Time of Evaluation Date of Evaluation: 10/30/17 Time of Evaluation: 10:46 - Subjective Subjective: Medicine Progress Note Pt seen and examined at bedside. No acute overnight events. Pt states that he still feels a little dizzy when getting out of bed. Pt states that mood is still depressed. Pt denies chest pain, shortness of breath, nausea, vomiting, diarrhea, abdominal pain, fever, chills, or headache. Objective - Vital Signs/Intake and Output Vital Signs (last 24 hours): Temp Pulse Resp BP Pulse Ox 97.8 F 62 18 170/114 H 98 10/30/17 06:00 10/30/17 06:00 10/30/17 06:00 10/30/17 06:00 10/30/17 06:00 Intake and Output: 10/30/17 10/30/17 06:59 18:59 Output Total 366 Balance -366 - Medications Medications: Current Medications Acetaminophen (Tylenol 325mg Tab) 650 mg PO Q6H PRN PRN Reason: Headache Albuterol/Ipratropium (Duoneb 3 Mg/0.5 Mg (3 Ml) Ud) 3 ml IH Q2H PRN PRN Reason: Shortness of Breath Amlodipine Besylate (Norvasc) 10 mg PO DAILY [facility] Clopidogrel Bisulfate (Plavix) 75 mg PO DAILY [facility] Last Admin: 10/30/17 08:24 Dose: 75 mg Famotidine (Pepcid) 40 mg PO HS [facility] Last Admin: 10/29/17 22:25 Dose: 40 mg Hydralazine HCl (Apresoline) 10 mg IVP Q6H PRN PRN Reason: Systolic Blood Pressure Hydralazine HCl (Apresoline) 10 mg PO QID [facility] Lorazepam (Ativan) 1 mg IVP Q6H PRN; Protocol PRN Reason: Anxiety Last Admin: 10/29/17 21:04 Dose: 1 mg Losartan Potassium (Cozaar) 100 mg PO DAILY [facility] Last Admin: 10/30/17 08:24 Dose: 100 mg Metoprolol Tartrate (Lopressor) 25 mg PO BID [facility] Nicotine (Nicoderm Cq) 1 patch TD DAILY [facility] Last Admin: 10/30/17 08:24 Dose: 1 patch - Labs Labs: 10/30/17 05:45 10/30/17 05:45 PT 10.7 SECONDS (9.4-12.5) 10/29/17 12:55 INR 0.93 (0.93-1.08) 10/29/17 12:55 APTT 29.2 Seconds (25.1-36.5) 10/29/17 12:55 - Constitutional Appears: No Acute Distress - Head Exam Head Exam: NORMAL INSPECTION - Eye Exam Eye Exam: Normal appearance Pupil Exam: NORMAL ACCOMODATION - ENT Exam ENT Exam: Normal Exam - Neck Exam Neck Exam: Normal Inspection - Respiratory Exam Respiratory Exam: Clear to Ausculation Bilateral. absent: Rales, Rhonchi, Wheezes - Cardiovascular Exam Cardiovascular Exam: RRR, +S1, +S2. absent: Gallop, Rubs, Murmur - GI/Abdominal Exam GI & Abdominal Exam: Soft. absent: Distended, Guarding, Tenderness, Rebound - Extremities Exam Extremities Exam: Normal Inspection - Back Exam Back Exam: NORMAL INSPECTION - Neurological Exam Neurological Exam: Alert, Awake, CN II-XII Intact, Oriented x3 - Psychiatric Exam Psychiatric exam: Depressed, Flat Affect - Skin Skin Exam: Dry, Intact, Normal Color, Warm Assessment and Plan - Assessment and Plan (Free Text) Assessment: 56 yo M with PMH of HTN and COPD admitted for evaluation and treatment for hypertensive urgency. Plan: 1. Hypertensive urgency - BP 227/135 on admission, Clonidine 0.2 mg PO and Labetalol 80 mg IVP given overall in ED - EKG: rate 77, LAD, RBBB, unchanged from past EKG - CXR negative - Head CT negative for acute intracranial process, showed sinusitis and left maxillary polyp or retention cyst - Lipid panel and TSH WNL - F/u HgbA1c and Echo - Cont Losartan and Plavix - Norvasc increased to 10 mg daily - Lopressor 25 mg BID added - Hydralazine 10 mg PO QID added - Hydralazine prn for SBP > 180 - Counselled patient on importance of medication compliance and risks associated with untreated HTN - Neuro consulted - Cardio consulted - PT eval and treat 2. Suicidal Ideation - 1:1 observation - Ativan prn for anxiety - Psych consulted 3. Polysubstance abuse - UDS positive for opiates, cocaine, and benzodiazepines - Hepatitis panel ordered - HIV ordered - Nicotine patch - CIWA protocol - Counselled patient on risks of drug, tobacco, and EtOH use and advised cessation 4. COPD - Duoneb prn GI/DVT PPx - Pepcid - SCD Pt was seen and discussed in detail with Dr. Gongora. Theodore Izquierdo, PGY1 <Van Gongora - Last Filed: 10/30/17 15:08> Objective - Vital Signs/Intake and Output Vital Signs (last 24 hours): Temp Pulse Resp BP Pulse Ox 98 F 60 18 169/107 H 98 10/30/17 11:23 10/30/17 14:00 10/30/17 11:23 10/30/17 13:28 10/30/17 06:00 Intake and Output: 10/30/17 10/30/17 06:59 18:59 Output Total 366 Balance -366 - Medications Medications: Current Medications Acetaminophen (Tylenol 325mg Tab) 650 mg PO Q6H PRN PRN Reason: Headache Albuterol/Ipratropium (Duoneb 3 Mg/0.5 Mg (3 Ml) Ud) 3 ml IH Q2H PRN PRN Reason: Shortness of Breath Amlodipine Besylate (Norvasc) 10 mg PO DAILY [facility] Clopidogrel Bisulfate (Plavix) 75 mg PO DAILY [facility] Last Admin: 10/30/17 08:24 Dose: 75 mg Famotidine (Pepcid) 40 mg PO HS [facility] Last Admin: 10/29/17 22:25 Dose: 40 mg Hydralazine HCl (Apresoline) 10 mg IVP Q6H PRN PRN Reason: Systolic Blood Pressure Hydralazine HCl (Apresoline) 10 mg PO QID [facility] Last Admin: 10/30/17 13:28 Dose: 10 mg Lorazepam (Ativan) 1 mg IVP Q6H PRN; Protocol PRN Reason: Anxiety Last Admin: 10/30/17 11:19 Dose: 1 mg Losartan Potassium (Cozaar) 100 mg PO DAILY [facility] Last Admin: 10/30/17 08:24 Dose: 100 mg Metoprolol Tartrate (Lopressor) 25 mg PO BID [facility] Last Admin: 10/30/17 11:22 Dose: 25 mg Nicotine (Nicoderm Cq) 1 patch TD DAILY [facility] Last Admin: 10/30/17 08:24 Dose: 1 patch - Labs Labs: 10/30/17 05:45 10/30/17 05:45 PT 10.7 SECONDS (9.4-12.5) 10/29/17 12:55 INR 0.93 (0.93-1.08) 10/29/17 12:55 APTT 29.2 Seconds (25.1-36.5) 10/29/17 12:55 Attending/Attestation - Attestation I have personally seen and examined this patient.: Yes I have fully participated in the care of the patient.: Yes I have reviewed all pertinent clinical information, including history, physical exam and plan: Yes Notes (Text): 10/30/17 15:02 attending note; Patient seen and examined with resident. Patient is a 56 -year-old male with PMH of hypertension, opiate abuse, cocaine abuse, alcohol abuse, active smoking and COPD is admitted for uncontrolled blood pressure and decreased sensation on the left side of the face and arm. currently blood pressure is improving. Hydralazine added. Norvasc dosage increased. EKG showed nonspecific ST-T changes. Cardiac enzymes negative. Echocardiogram ordered. Cardiology evaluation requested. currently Patient denies any headache. Denies any chest pain. Denies any shortness of breath. CT head is negative. Neurology evaluation appreciated. CTA ordered. patient is complaining of severe depression. Patient is expressing some concern about ending his life. One-to-one observation ordered. Psychiatric evaluation appreciated. Continue one-to-one until tomorrow. active smoking; smoking cessation is advised. Started on NicoDerm patch. Alcohol abuse; alcohol cessation is advised. started on ciwa protocol. active IV heroin abuse. Monitor closely. hepatitis is negative. HIV is pending. Complete drug abuse cessation Is strongly advised. manager social services evaluation requested for discharge planning. upon discharge the patient will follow-up with PMD Dr. Franco.
[2017-10-30 13:13] LABS: HEPATITIS B SURFACE AG Negative (NEGATIVE)
[2017-10-30 13:19] LABS: HEPATITIS A IGM NEGATIVE (NEGATIVE); HEPATITIS B CORE AB NEGATIVE (NEGATIVE)
[2017-10-30 13:30] LABS: HEPATITIS C ANTIBODY NEGATIVE (NEGATIVE)
--- NOTE | 2017-10-30 15:36 | CT ---
PROCEDURE: CT Angiography of the neck with contrast HISTORY: cva COMPARISON: None available. TECHNIQUE: Contiguous axial images of the neck were obtained from the level of the skull-base to the superior mediastinum in the arteriographic phase of enhancement. Coronal and sagittal reformats or also generated. IV contrast dose: 150 cc of Omni 350 Radiation Dose - DLP: 656 mGy-cm This CT exam was performed using one or more of the following dose reduction techniques: Automated exposure control, adjustment of the mA and/or kV according to patient size, and/or use of iterative reconstruction technique. FINDINGS: RIGHT CAROTID ARTERIES: Minimal calcified plaque in the proximal internal carotid without stenosis LEFT CAROTID ARTERIES: Minimal calcified plaque in the proximal internal carotid without stenosis. There is also severe tortuosity of the internal carotids VERTEBRAL ARTERIES: Right Vertebral Artery: Normal. Left Vertebral Artery: Normal. OTHER FINDINGS: None. IMPRESSION: Minimal calcified plaque in the proximal internal carotids without stenosis. There is also severe tortuosity of the internal carotids CT Angiography of the Brain. HISTORY: cva COMPARISON: None available. TECHNIQUE: CT angiography of the intracranial arteries was performed. Coronal and sagittal maximum intensity projection reformated images were generated. This CT exam was performed using one or more of the following dose reduction techniques: Automated exposure control, adjustment of the mA and/or kV according to patient size, and/or use of iterative reconstruction technique. FINDINGS: INTERNAL CEREBRAL ARTERIES: Unremarkable. The skull base, petrous, cavernous and supraclinoid segments are bilaterally widely patent. ANTERIOR CEREBRAL ARTERIES: Unremarkable. A1 and A2 segments are widely patent. Smaller distal branches unremarkable, as visualized. MIDDLE CEREBRAL ARTERIES: Unremarkable. M1 and M2 segments are widely patent. Perisylvian branches grossly symmetric. POSTERIOR CIRCULATION: Basilar Artery: Unremarkable. Distal Vertebral Arteries: Unremarkable. Posterior Cerebral Arteries: Unremarkable. Posterior Inferior Cerebellar Arteries: Unremarkable. ANEURYSM/ VASCULAR MALFORMATIONS: None. OTHER FINDINGS: None. IMPRESSION: Unremarkable CT Angiography of the Brain.
--- NOTE | 2017-10-30 16:48 | CARD ---
APPROVED REPORT EXAM: Two-dimensional and M-mode echocardiogram with Doppler and color Doppler. INDICATION LVFX 2D DIMENSIONS Left Atrium (2D)4.3 (1.6-4.0cm)IVSd1.0 (0.7-1.1cm) LVDd5.1 (3.9-5.9cm)PWd1.1 (0.7-1.1cm) LVDs3.6 (2.5-4.0cm)FS (%) 29.1 % LVEF (%)55.6 (>50%) M-Mode DIMENSIONS Aortic Root4.00 (2.2-3.7cm)Aortic Cusp Exc.1.90 (1.5-2.0cm) Aortic Valve AoV Peak Genvyomd480.0cm/Kristen Peak GR.6mmHg Mitral Valve MV E Dmzozzfp91.7cm/sMV A Zbwwgrdt41.0cm/sE/A ratio0.6 TDI Lateral E' Peak V5.46cm/sMedial E' Peak V4.87cm/sE/Lateral E'8.4 E/Medial E'9.4 Pulmonary Valve PV Peak Pcrjqjkw15.2cm/sPV Peak Grad.1mmHg Tricuspid Valve TR Peak [id number]/sRAP [id number] Peak Gr.23mmHg [id number] LEFT VENTRICLE The left ventricle is normal size. There is normal left ventricular wall thickness. The left ventricular function is normal. The left ventricular ejection fraction is within the normal range. There is normal LV segmental wall motion. Transmitral Doppler flow pattern is Grade I-abnormal relaxation pattern. RIGHT VENTRICLE The right ventricle is normal size. There is normal right ventricular wall thickness. The right ventricular systolic function is normal. ATRIA The left atrium is borderline dilated. The right atrium size is normal. AORTIC VALVE The aortic valve is normal in structure. No aortic regurgitation is present. There is no aortic valvular stenosis. MITRAL VALVE The mitral valve is normal in structure. There is no mitral valve regurgitation noted. There is no mitral valve stenosis. TRICUSPID VALVE The tricuspid valve is normal in structure. There is trace tricuspid regurgitation. PULMONIC VALVE The pulmonary valve is normal in structure. There is no pulmonic valvular regurgitation. GREAT VESSELS The aortic root is mildly to moderately enlarged. PERICARDIAL EFFUSION There is a trace loculated anterior pericardial effusion. <Conclusion> The left ventricle is normal size. There is normal left ventricular wall thickness. The left ventricular function is normal. The left ventricular ejection fraction is within the normal range. There is normal LV segmental wall motion. Transmitral Doppler flow pattern is Grade I-abnormal relaxation pattern. The aortic root is mildly to moderately enlarged.
--- NOTE | 2017-10-30 18:13 | CON ---
DATE: HISTORY OF PRESENT ILLNESS: The patient is a 56-year-old male with not known previous psychiatric history. The patient came initially to the emergency room complaining of hypertension and COPD. Also, complained that he has history of forgetfulness, hypertension and noncompliance with the medication due to forgetfulness. Psych consult was called for evaluation of possible suicidal ideation, which the patient brought up to the medical team during the evaluation on the medical side. This grant writer would like to emphasize the fact that the patient did not come to the hospital complaining of depressive symptoms or suicidal ideation in the emergency room, but said that he is suicidal on the medical side. The patient was seen and examined. The patient presented to be sleepy, providing inconsistent history. For example, the patient said that he never been evaluated by psychiatrist before and never tried to kill himself before and never been admitted to the psychiatric inpatient unit. To the medical team, the patient said that he has history of depression and he was prescribed Paxil. Also, been evaluated by psychiatrist. It is inconsistent. During the evaluation, the patient had vague thoughts of "giving up." The patient denied any intent or plan to kill himself as per one to one sitter. The patient was agitated mildly due to activities with his roommate, but the patient did not have any physical aggression or agitation. The patient has good appetite as well as not psychotic. The patient also was not truthful about substance abuse. The patient said that he is not using any drugs, but urine drug screen was positive for opioids, benzodiazepines and cannabis. This grant writer checked the previous history. Based on [facility], the patient never been evaluated by psychiatrist before, not even for consultation services. Social issues, the patient is facing homelessness. The patient will be not able to pay rent and will be evicted. The patient does not work and has no income to support himself. VITAL SIGNS: Reviewed. Temperature 98, pulse is 60, blood pressure 169/107, respirations 18. MEDICATIONS: Reviewed. Tylenol, DuoNeb, Norvasc, Plavix, Pepcid, hydralazine, lorazepam, Ativan 1 mg IV push every 6 hours p.r.n. for possible alcohol withdrawals. As per medical team, Adilene Miranda Nicoderm. LABORATORY DATA: Reviewed. As this grant writer mentioned above, opioids positive, benzodiazepines positive and cocaine positive. Coagulation reviewed. Chemistry reviewed. MENTAL STATUS EXAMINATION: The patient appears to be having poor personal hygiene, not shaved, dirty nails, looks like homeless person, intermittent eye contact. Speech was under productive, low volume. The patient seems to be poor and unreliable historian because secondary gain cannot be excluded or memory problems. Mood described as very depressed. Affect was constricted. Thought process seems to be coherent and goal directed, but concrete. Thought content, passive wish to be . Denied any intent or plan to kill himself. Insight and judgment seems to be limited. Impulses are unpredictable so far. The patient denied hearing voices, denied seeing things. IMPRESSION Rule out substance-induced mood disorder, mood disorder not otherwise specified, secondary gain cannot be excluded. PLAN: Continue current medication. Continue current management. We will follow up and advise accordingly. For now, we will continue one to one in order to have full picture what kind of symptoms patient has. If within 24 hours, the patient will be not agitated, we will safely discontinue one to one. Dr. Houser will see the patient over the weekend, p.r.n. orders for Geodon will be placed in the computer. Should you have any questions, give me a call back. Thank you very much for letting me participate in the care of your patient. Case was discussed with Dr. Maxwell and Dr. Gongora. Mag Coats MD
[2017-10-31 07:15] LABS: HEMOGLOBIN 14.9 g/dL (14.0-18.0); MEAN CELL VOLUME 84.2 fl (80.0-105.0); MEAN CORPUSCULAR HGB CONC 33.3 g/dl (31.0-37.0); MEAN PLATELET VOLUME 9.7 fl (7.0-11.0); RBC 5.32 10^6/uL (3.5-6.1); RED CELL DISTRIBUTION WIDTH 15.8 % (11.5-14.5); WHITE BLOOD COUNT 7.3 10^3/ul (4.5-11.0)
[2017-10-31 07:41] LABS: ALB/GLOB RATIO 1.3 (1.1-1.8); ALBUMIN 4.1 g/dL (3.0-4.8); ALT/SGPT 20 U/L (7-56); AST/SGOT 20 U/L (17-59); BLOOD UREA NITROGEN 15 mg/dL (7-21); CALCIUM 9.8 mg/dL (8.4-10.5); GFR AFRICAN-AMERICAN > 60; GFR NON-AFRICAN AMERICAN > 60
--- NOTE | 2017-10-31 09:32 | MRI ---
PROCEDURE: MRI BRAIN WITHOUT CONTRAST HISTORY: cva COMPARISON: None. TECHNIQUE: Multiplanar, multisequence MR images of the brain were obtained without intravenous contrast enhancement. FINDINGS: HEMORRHAGE: None DWI: No evidence of an acute or early subacute infarction. BRAIN PARENCHYMA: No mass effect or edema. No atrophy or chronic microvascular ischemic changes. VENTRICLES: Unremarkable. No hydrocephalus. CRANIUM: Unremarkable. ORBITS: Grossly unremarkable. PARANASAL SINUSES/MASTOIDS: Clear VASCULAR SYSTEM: Skull base flow voids intact. OTHER FINDINGS: None. IMPRESSION: No acute intracranial findings
--- NOTE | 2017-10-31 10:16 | CP.PCM.PN ---
<Rashi Izquierdo - Last Filed: 10/31/17 10:10> Subjective - Date & Time of Evaluation Date of Evaluation: 10/31/17 Time of Evaluation: 10:10 - Subjective Subjective: Medicine Progress Note Pt seen and examined at bedside. No acute overnight events. Pt states that he has no change in mood. Pt denies CP, SOB, n/v/d, abdominal pain, fever, chills, FIGUEROA, or dizziness. Objective - Vital Signs/Intake and Output Vital Signs (last 24 hours): Temp Pulse Resp BP Pulse Ox 98.7 F 72 18 182/105 H 98 10/30/17 17:44 10/30/17 22:03 10/30/17 17:44 10/30/17 22:03 10/30/17 06:00 Intake and Output: 10/31/17 10/31/17 06:59 18:59 Intake Total 0 Output Total 1200 Balance -1200 - Medications Medications: Current Medications Acetaminophen (Tylenol 325mg Tab) 650 mg PO Q6H PRN PRN Reason: Headache Albuterol/Ipratropium (Duoneb 3 Mg/0.5 Mg (3 Ml) Ud) 3 ml IH Q2H PRN PRN Reason: Shortness of Breath Amlodipine Besylate (Norvasc) 10 mg PO DAILY [facility] Clopidogrel Bisulfate (Plavix) 75 mg PO DAILY [facility] Last Admin: 10/30/17 16:46 Dose: Not Given Famotidine (Pepcid) 40 mg PO HS [facility] Last Admin: 10/29/17 22:25 Dose: 40 mg Hydralazine HCl (Apresoline) 10 mg IVP Q6H PRN PRN Reason: Systolic Blood Pressure Last Admin: 10/30/17 22:03 Dose: 10 mg Hydralazine HCl (Apresoline) 50 mg PO Q8 [facility] Lorazepam (Ativan) 1 mg IVP Q6H PRN; Protocol PRN Reason: Anxiety Last Admin: 10/30/17 18:25 Dose: 1 mg Losartan Potassium (Cozaar) 100 mg PO DAILY [facility] Last Admin: 10/30/17 16:46 Dose: Not Given Metoprolol Tartrate (Lopressor) 25 mg PO BID [facility] Last Admin: 10/30/17 17:06 Dose: 25 mg Nicotine (Nicoderm Cq) 1 patch TD DAILY [facility] Last Admin: 10/30/17 18:03 Dose: Not Given - Labs Labs: 10/31/17 06:30 10/31/17 06:30 PT 10.7 SECONDS (9.4-12.5) 10/29/17 12:55 INR 0.93 (0.93-1.08) 10/29/17 12:55 APTT 29.2 Seconds (25.1-36.5) 10/29/17 12:55 - Constitutional Appears: No Acute Distress - Head Exam Head Exam: NORMAL INSPECTION - Eye Exam Eye Exam: Normal appearance Pupil Exam: NORMAL ACCOMODATION - ENT Exam ENT Exam: Normal Exam - Neck Exam Neck Exam: Normal Inspection - Respiratory Exam Respiratory Exam: Clear to Ausculation Bilateral. absent: Rales, Rhonchi, Wheezes - Cardiovascular Exam Cardiovascular Exam: RRR, +S1, +S2. absent: Gallop, Rubs, Murmur - GI/Abdominal Exam GI & Abdominal Exam: Soft. absent: Distended, Guarding, Tenderness, Rebound - Extremities Exam Extremities Exam: Normal Inspection - Back Exam Back Exam: NORMAL INSPECTION - Neurological Exam Neurological Exam: Alert, Awake, CN II-XII Intact, Oriented x3 - Psychiatric Exam Psychiatric exam: Normal Affect, Normal Mood - Skin Skin Exam: Dry, Intact, Normal Color, Warm Assessment and Plan - Assessment and Plan (Free Text) Assessment: 56 yo M with PMH of HTN and COPD admitted for evaluation and treatment for hypertensive urgency. Plan: 1. Hypertensive urgency - BP 227/135 on admission, Clonidine 0.2 mg PO and Labetalol 80 mg IVP given overall in ED - EKG: rate 77, LAD, RBBB, unchanged from past EKG - CXR negative - Head CT negative for acute intracranial process, showed sinusitis and left maxillary polyp or retention cyst - Head/Neck CTA negative - Brain MRI negative - Lipid panel, HgbA1c, and TSH WNL - Echo normal - Cont Losartan, Norvasc, Hydralazine, Lopressor, and Plavix - Hydralazine prn for SBP > 180 - Counselled patient on importance of medication compliance and risks associated with untreated HTN - Neuro consulted - Cardio consulted - PT eval and treat 2. Suicidal Ideation - 1:1 observation discontinued - Ativan prn for anxiety - Psych consulted 3. Polysubstance abuse - UDS positive for opiates, cocaine, and benzodiazepines - Hepatitis panel ordered - HIV ordered - Nicotine patch - CIWA protocol - Counselled patient on risks of drug, tobacco, and EtOH use and advised cessation 4. COPD - Duoneb prn GI/DVT PPx - Pepcid - SCD Pt was seen and discussed in detail with Dr. Gongora. Theodore Izquierdo, PGY1 <Van Gongora - Last Filed: 10/31/17 13:27> Objective - Vital Signs/Intake and Output Vital Signs (last 24 hours): Temp Pulse Resp BP Pulse Ox 97.9 F 119 H 20 143/99 H 98 10/31/17 12:00 10/31/17 12:00 10/31/17 12:00 10/31/17 12:00 10/30/17 06:00 Intake and Output: 10/31/17 10/31/17 06:59 18:59 Intake Total 0 Output Total 1200 Balance -1200 - Medications Medications: Current Medications Acetaminophen (Tylenol 325mg Tab) 650 mg PO Q6H PRN PRN Reason: Headache Albuterol/Ipratropium (Duoneb 3 Mg/0.5 Mg (3 Ml) Ud) 3 ml IH Q2H PRN PRN Reason: Shortness of Breath Amlodipine Besylate (Norvasc) 10 mg PO DAILY [facility] Last Admin: 10/31/17 10:32 Dose: 10 mg Clopidogrel Bisulfate (Plavix) 75 mg PO DAILY [facility] Last Admin: 10/31/17 10:31 Dose: 75 mg Famotidine (Pepcid) 40 mg PO HS [facility] Last Admin: 10/29/17 22:25 Dose: 40 mg Hydralazine HCl (Apresoline) 10 mg IVP Q6H PRN PRN Reason: Systolic Blood Pressure Last Admin: 10/30/17 22:03 Dose: 10 mg Hydralazine HCl (Apresoline) 50 mg PO Q8 [facility] Last Admin: 10/31/17 10:33 Dose: 50 mg Lorazepam (Ativan) 1 mg IVP Q6H PRN; Protocol PRN Reason: Anxiety Last Admin: 10/31/17 13:14 Dose: 1 mg Losartan Potassium (Cozaar) 100 mg PO DAILY [facility] Last Admin: 10/31/17 10:32 Dose: 100 mg Metoprolol Tartrate (Lopressor) 25 mg PO BID [facility] Last Admin: 10/31/17 10:32 Dose: 25 mg Nicotine (Nicoderm Cq) 1 patch TD DAILY [facility] Last Admin: 10/31/17 10:32 Dose: 1 patch - Labs Labs: 10/31/17 06:30 10/31/17 06:30 PT 10.7 SECONDS (9.4-12.5) 10/29/17 12:55 INR 0.93 (0.93-1.08) 10/29/17 12:55 APTT 29.2 Seconds (25.1-36.5) 10/29/17 12:55 Attending/Attestation - Attestation I have personally seen and examined this patient.: Yes I have fully participated in the care of the patient.: Yes I have reviewed all pertinent clinical information, including history, physical exam and plan: Yes Notes (Text): 10/31/17 13:23 attending note; Patient seen and examined with resident. Patient is a 56 -year-old male with PMH of hypertension, opiate abuse, cocaine abuse, alcohol abuse, active smoking and COPD is admitted for uncontrolled blood pressure and decreased sensation on the left side of the face and arm. currently blood pressure is improving. Hydralazine added. Norvasc dosage increased. EKG showed nonspecific ST-T changes. Cardiac enzymes negative. Echocardiogram showed ejection fraction of 55%. currently Patient denies any headache. Denies any chest pain. Denies any shortness of breath. CT head is negative. Neurology evaluation appreciated. CTA is normal. MRI of the brain is negative. patient is complaining of severe depression. psychiatric evaluation appreciated. Case discussed with . One-to-one observation discontinued. active smoking; smoking cessation is advised. Started on NicoDerm patch. Alcohol abuse; alcohol cessation is advised. started on ciwa protocol. active IV heroin abuse. Monitor closely. hepatitis is negative. HIV is negative. Complete drug abuse cessation Is strongly advised. social service coordinator evaluation requested for discharge planning. upon discharge the patient will follow-up with PMD Dr. Franco.
[2017-11-01 07:19] LABS: MEAN CELL VOLUME 84.5 fl (80.0-105.0); MEAN CORPUSCULAR HEMOGLOBIN 28.3 pg (25.0-35.0); MEAN CORPUSCULAR HGB CONC 33.5 g/dl (31.0-37.0); MEAN PLATELET VOLUME 9.9 fl (7.0-11.0); RBC 5.3 10^6/uL (3.5-6.1); RED CELL DISTRIBUTION WIDTH 15.8 % (11.5-14.5)
[2017-11-01 07:41] VITALS: RESP 19; TEMP 97.4; O2SAT 96
[2017-11-01 07:57] LABS: ALB/GLOB RATIO 1.4 (1.1-1.8); ALBUMIN 4.2 g/dL (3.0-4.8); ALT/SGPT 25 U/L (7-56); AST/SGOT 25 U/L (17-59); BLOOD UREA NITROGEN 20 mg/dL (7-21); CALCIUM 9.9 mg/dL (8.4-10.5); GFR AFRICAN-AMERICAN > 60; GFR NON-AFRICAN AMERICAN 57
[2017-11-01 08:55] VITALS: BP 140/102; PULSE 77
--- NOTE | 2017-11-01 11:31 | CP.PCM.DIS ---
<Rashi Izquierdo - Last Filed: 11/01/17 11:09> Provider - Provider Date of Admission: 10/29/17 14:40 Attending physician: Van Gongora MD Primary care physician: Kyle Franco APN Consults: Psych: Mag Cardio: Elkind Neuro: Gomez Time Spent in preparation of Discharge (in minutes): 45 Diagnosis - Discharge Diagnosis (1) Hypertensive urgency Status: Acute Priority: Medium (2) Substance abuse Status: Chronic Priority: Medium Hospital Course - Lab Results Lab Results: Most Recent Lab Values WBC 7.0 10^3/ul (4.5-11.0) 11/01/17 06:30 RBC 5.30 10^6/uL (3.5-6.1) 11/01/17 06:30 Hgb 15.0 g/dL (14.0-18.0) 11/01/17 06:30 Hct 44.8 % (42.0-52.0) 11/01/17 06:30 MCV 84.5 fl (80.0-105.0) 11/01/17 06:30 MCH 28.3 pg (25.0-35.0) 11/01/17 06:30 MCHC 33.5 g/dl (31.0-37.0) 11/01/17 06:30 RDW 15.8 % (11.5-14.5) H 11/01/17 06:30 Plt Count 217 10^3/uL (120.0-450.0) 11/01/17 06:30 MPV 9.9 fl (7.0-11.0) 11/01/17 06:30 Gran % 71.2 % (50.0-68.0) H 10/29/17 12:55 Lymph % (Auto) 19.6 % (22.0-35.0) L 10/29/17 12:55 [place] % (Auto) 6.5 % (1.0-6.0) H 10/29/17 12:55 Eos % (Auto) 2.0 % (1.5-5.0) 10/29/17 12:55 Baso % (Auto) 0.7 % (0.0-3.0) 10/29/17 12:55 Gran # 5.21 (1.4-6.5) 10/29/17 12:55 Lymph # (Auto) 1.4 (1.2-3.4) 10/29/17 12:55 [place] # (Auto) 0.5 (0.1-0.6) 10/29/17 12:55 Eos # (Auto) 0.2 (0.0-0.7) 10/29/17 12:55 Baso # (Auto) 0.05 K/mm3 (0.0-2.0) 10/29/17 12:55 PT 10.7 SECONDS (9.4-12.5) 10/29/17 12:55 INR 0.93 (0.93-1.08) 10/29/17 12:55 APTT 29.2 Seconds (25.1-36.5) 10/29/17 12:55 Sodium 144 mmol/L (132-148) 11/01/17 06:30 Potassium 3.9 mmol/L (3.6-5.0) 11/01/17 06:30 Chloride 107 mmol/L (98-107) 11/01/17 06:30 Carbon Dioxide 25 mmol/L (21-33) 11/01/17 06:30 Anion Gap 16 (10-20) 11/01/17 06:30 BUN 20 mg/dL (7-21) 11/01/17 06:30 Creatinine 1.3 mg/dl (0.8-1.5) 11/01/17 06:30 Est GFR ( Amer) > 60 11/01/17 06:30 Est GFR (Non-Af Amer) 57 11/01/17 06:30 Random Glucose 100 mg/dL (70-110) 11/01/17 06:30 Hemoglobin A1c 5.6 % (4.2-6.5) 10/29/17 12:55 Calcium 9.9 mg/dL (8.4-10.5) 11/01/17 06:30 Phosphorus 3.5 mg/dL (2.5-4.5) 10/30/17 05:45 Magnesium 1.9 mg/dL (1.7-2.2) 10/30/17 05:45 Total Bilirubin 0.3 mg/dL (0.2-1.3) 11/01/17 06:30 AST 25 U/L (17-59) 11/01/17 06:30 ALT 25 U/L (7-56) 11/01/17 06:30 Alkaline Phosphatase 62 U/L (38-126) 11/01/17 06:30 Lactate Dehydrogenase 338 U/L (333-699) 10/30/17 05:45 Total Creatine Kinase 28 U/L (35-230) L 10/30/17 05:45 Troponin I 0.01 ng/mL 10/30/17 05:45 Total Protein 7.3 g/dL (5.8-8.3) 11/01/17 06:30 Albumin 4.2 g/dL (3.0-4.8) 11/01/17 06:30 Globulin 3.1 gm/dL 11/01/17 06:30 Albumin/Globulin Ratio 1.4 (1.1-1.8) 11/01/17 06:30 Triglycerides 109 mg/dL (35-160) 10/29/17 12:55 Cholesterol 182 mg/dL (130-200) 10/29/17 12:55 LDL Cholesterol Direct 85 mg/dL (0-129) 10/29/17 12:55 HDL Cholesterol 67 mg/dL (29-60) H 10/29/17 12:55 Thyroxine (T4) 8.4 ug/dL (5.5-11.0) 10/30/17 05:45 Total T3 1.13 ng/mL (0.97-1.69) 10/30/17 05:45 TSH 3rd Generation 0.57 mIU/mL (0.46-4.68) 10/30/17 05:45 Urine Color Yellow (YELLOW) 10/29/17 18:14 Urine Appearance Clear (CLEAR) 10/29/17 18:14 Urine pH 7.0 (4.7-8.0) 10/29/17 18:14 Ur Specific [place] 1.025 (1.005-1.035) 10/29/17 18:14 Urine Protein 30 mg/dL (<30 mg/dL) H 10/29/17 18:14 Urine Glucose (UA) Negative mg/dL (NEGATIVE) 10/29/17 18:14 Urine Ketones 15 mg/dL (NEGATIVE) H 10/29/17 18:14 Urine Blood Negative (NEGATIVE) 10/29/17 18:14 Urine Nitrate Negative (NEGATIVE) 10/29/17 18:14 Urine Bilirubin Negative (NEGATIVE) 10/29/17 18:14 Urine Urobilinogen 0.2 E.U./dL (<1 E.U./dL) 10/29/17 18:14 Ur Leukocyte Esterase Negative [place]/uL (NEGATIVE) 10/29/17 18:14 Urine RBC 0 - 2 /hpf (0-2) 10/29/17 18:14 Urine WBC 0 - 2 /hpf (0-6) 10/29/17 18:14 Ur Epithelial Cells 0 - 2 /hpf (0-5) 10/29/17 18:14 Urine Bacteria Trace (NEG) 10/29/17 18:14 Urine Opiates Screen Positive (NEGATIVE) H 10/29/17 18:14 Urine Methadone Screen Negative (NEGATIVE) 10/29/17 18:14 Ur Barbiturates Screen Negative (NEGATIVE) 10/29/17 18:14 Ur Phencyclidine Scrn Negative (NEGATIVE) 10/29/17 18:14 Ur Amphetamines Screen Negative (NEGATIVE) 10/29/17 18:14 U Benzodiazepines Scrn Positive (NEGATIVE) H 10/29/17 18:14 U Oth Cocaine Metabols Positive (NEGATIVE) H 10/29/17 18:14 U Cannabinoids Screen Negative (NEGATIVE) 10/29/17 18:14 Hepatitis A IgM Ab Negative (NEGATIVE) 10/29/17 12:55 Hep Bs Antigen Negative (NEGATIVE) 10/29/17 12:55 Hep B Core IgM Ab Negative (NEGATIVE) 10/29/17 12:55 Hepatitis C Antibody Negative (NEGATIVE) 10/29/17 12:55 HIV 1&2 Ag/Ab, 4th Gen Nonreactive (Nonreactive) 10/29/17 12:55 - Hospital Course Hospital Course: Pt is a 56 yo M with PMH of HTN and COPD presents to [facility] due to a one day history of FIGUEROA and high blood pressure. Patient went to his PMD which told him to seek evaluation at the [facility] ED. Pt was on medications for HTN, but does not know which ones he's supposed to be taking and admits to sporadically taking his medications due to forgetfulness. Patient also admits to suicidal thoughts without a plan, but states that he does not care if he gets hurt. In the ED, patient was given IV anti-hypertensive medications with minimal response. CT of the head of was negative. Patient was admitted for hypertensive urgency and placed on 1:1 observation for suicidal ideation. Patient was continued on his home anti-hypertensive and additional medications were added. Cardio was consulted, recommendations appreciated. Echo was normal. Neuro was consulted, recommendations were appreciated. MRI brain and head/neck CTA were normal. Psych was consulted, stated that patient could have substance-induced mood disorder, but secondary gain could also be included. Psych deemed him safe for discharge or AMA if needed. Today, patient was seen and examined at bedside. Patient was counselled on the importance, risks, and benefits of medication compliance as it pertains to hypertension. Patient was also counselled on the risks of polysubstance abuse and was advised cessation. As patient's blood pressure had improved and was medically stable, he was discharged. Patient was given prescriptions for anti-hypertensives and advised close follow up with his PMD. The patient acknowledged and agreed. Discharge Exam - Head Exam Head Exam: NORMAL INSPECTION - Eye Exam Eye Exam: Normal appearance - ENT Exam ENT Exam: Normal Exam - Neck Exam Neck exam: Normal Inspection - Respiratory Exam Respiratory Exam: Clear to PA & Lateral. absent: Rales, Rhonchi, Wheezes - Cardiovascular Exam Cardiovascular Exam: RRR, +S1, +S2. absent: Diastolic murmur, Gallop, Rubs, Systolic Murmur - GI/Abdominal Exam GI & Abdominal Exam: Soft. absent: Distended, Guarding, Rebound, Tenderness - Extremities Exam Extremities exam: normal inspection - Back Exam Back exam: NORMAL INSPECTION - Neurological Exam Neurological exam: Alert, CN II-XII Intact, Oriented x3 - Psychiatric Exam Psychiatric exam: Normal Affect, Normal Mood - Skin Skin Exam: Dry, Intact, Normal Color, Warm Discharge Plan - Discharge Medications Prescriptions: amLODIPine [Norvasc] 10 mg PO DAILY #14 tab hydrALAZINE [Apresoline] 100 mg PO TID #40 tab Metoprolol Tartrate [Lopressor] 25 mg PO BID #30 tab - Follow Up Plan Condition: GUARDED Disposition: HOME/ ROUTINE Instructions: Anxiety, Adult (DC), Drug Abuse and Drug Addiction (DC), Medicines for High Blood Pressure, Generalized Anxiety Disorder (DC), Hypertension (DC) Additional Instructions: 1. Follow up with PMD within 1 week 2. Follow up with [facility] within 1 week 3. Take medications as prescribed as it is important to maintain normal blood pressure 4. Stop Tobacco use 5. Stop all illicit drug use 6. Return to ED if symptoms worsen [place] [phone] Referrals: Kyle Franco APN [Primary Care Provider] - <Van Gongora - Last Filed: 11/01/17 14:33> Provider - Provider Date of Admission: 10/29/17 14:40 Attending physician: Van Gongora MD Primary care physician: Kyle Franco [facility] Course - Lab Results Lab Results: Most Recent Lab Values WBC 7.0 10^3/ul (4.5-11.0) 11/01/17 06:30 RBC 5.30 10^6/uL (3.5-6.1) 11/01/17 06:30 Hgb 15.0 g/dL (14.0-18.0) 11/01/17 06:30 Hct 44.8 % (42.0-52.0) 11/01/17 06:30 MCV 84.5 fl (80.0-105.0) 11/01/17 06:30 MCH 28.3 pg (25.0-35.0) 11/01/17 06:30 MCHC 33.5 g/dl (31.0-37.0) 11/01/17 06:30 RDW 15.8 % (11.5-14.5) H 11/01/17 06:30 Plt Count 217 10^3/uL (120.0-450.0) 11/01/17 06:30 MPV 9.9 fl (7.0-11.0) 11/01/17 06:30 Gran % 71.2 % (50.0-68.0) H 10/29/17 12:55 Lymph % (Auto) 19.6 % (22.0-35.0) L 10/29/17 12:55 [place] % (Auto) 6.5 % (1.0-6.0) H 10/29/17 12:55 Eos % (Auto) 2.0 % (1.5-5.0) 10/29/17 12:55 Baso % (Auto) 0.7 % (0.0-3.0) 10/29/17 12:55 Gran # 5.21 (1.4-6.5) 10/29/17 12:55 Lymph # (Auto) 1.4 (1.2-3.4) 10/29/17 12:55 [place] # (Auto) 0.5 (0.1-0.6) 10/29/17 12:55 Eos # (Auto) 0.2 (0.0-0.7) 10/29/17 12:55 Baso # (Auto) 0.05 K/mm3 (0.0-2.0) 10/29/17 12:55 PT 10.7 SECONDS (9.4-12.5) 10/29/17 12:55 INR 0.93 (0.93-1.08) 10/29/17 12:55 APTT 29.2 Seconds (25.1-36.5) 10/29/17 12:55 Sodium 144 mmol/L (132-148) 11/01/17 06:30 Potassium 3.9 mmol/L (3.6-5.0) 11/01/17 06:30 Chloride 107 mmol/L (98-107) 11/01/17 06:30 Carbon Dioxide 25 mmol/L (21-33) 11/01/17 06:30 Anion Gap 16 (10-20) 11/01/17 06:30 BUN 20 mg/dL (7-21) 11/01/17 06:30 Creatinine 1.3 mg/dl (0.8-1.5) 11/01/17 06:30 Est GFR ( Amer) > 60 11/01/17 06:30 Est GFR (Non-Af Amer) 57 11/01/17 06:30 Random Glucose 100 mg/dL (70-110) 11/01/17 06:30 Hemoglobin A1c 5.6 % (4.2-6.5) 10/29/17 12:55 Calcium 9.9 mg/dL (8.4-10.5) 11/01/17 06:30 Phosphorus 3.5 mg/dL (2.5-4.5) 10/30/17 05:45 Magnesium 1.9 mg/dL (1.7-2.2) 10/30/17 05:45 Total Bilirubin 0.3 mg/dL (0.2-1.3) 11/01/17 06:30 AST 25 U/L (17-59) 11/01/17 06:30 ALT 25 U/L (7-56) 11/01/17 06:30 Alkaline Phosphatase 62 U/L (38-126) 11/01/17 06:30 Lactate Dehydrogenase 338 U/L (333-699) 10/30/17 05:45 Total Creatine Kinase 28 U/L (35-230) L 10/30/17 05:45 Troponin I 0.01 ng/mL 10/30/17 05:45 Total Protein 7.3 g/dL (5.8-8.3) 11/01/17 06:30 Albumin 4.2 g/dL (3.0-4.8) 11/01/17 06:30 Globulin 3.1 gm/dL 11/01/17 06:30 Albumin/Globulin Ratio 1.4 (1.1-1.8) 11/01/17 06:30 Triglycerides 109 mg/dL (35-160) 10/29/17 12:55 Cholesterol 182 mg/dL (130-200) 10/29/17 12:55 LDL Cholesterol Direct 85 mg/dL (0-129) 10/29/17 12:55 HDL Cholesterol 67 mg/dL (29-60) H 10/29/17 12:55 Thyroxine (T4) 8.4 ug/dL (5.5-11.0) 10/30/17 05:45 Total T3 1.13 ng/mL (0.97-1.69) 10/30/17 05:45 TSH 3rd Generation 0.57 mIU/mL (0.46-4.68) 10/30/17 05:45 Urine Color Yellow (YELLOW) 10/29/17 18:14 Urine Appearance Clear (CLEAR) 10/29/17 18:14 Urine pH 7.0 (4.7-8.0) 10/29/17 18:14 Ur Specific [place] 1.025 (1.005-1.035) 10/29/17 18:14 Urine Protein 30 mg/dL (<30 mg/dL) H 10/29/17 18:14 Urine Glucose (UA) Negative mg/dL (NEGATIVE) 10/29/17 18:14 Urine Ketones 15 mg/dL (NEGATIVE) H 10/29/17 18:14 Urine Blood Negative (NEGATIVE) 10/29/17 18:14 Urine Nitrate Negative (NEGATIVE) 10/29/17 18:14 Urine Bilirubin Negative (NEGATIVE) 10/29/17 18:14 Urine Urobilinogen 0.2 E.U./dL (<1 E.U./dL) 10/29/17 18:14 Ur Leukocyte Esterase Negative [place]/uL (NEGATIVE) 10/29/17 18:14 Urine RBC 0 - 2 /hpf (0-2) 10/29/17 18:14 Urine WBC 0 - 2 /hpf (0-6) 10/29/17 18:14 Ur Epithelial Cells 0 - 2 /hpf (0-5) 10/29/17 18:14 Urine Bacteria Trace (NEG) 10/29/17 18:14 Urine Opiates Screen Positive (NEGATIVE) H 10/29/17 18:14 Urine Methadone Screen Negative (NEGATIVE) 10/29/17 18:14 Ur Barbiturates Screen Negative (NEGATIVE) 10/29/17 18:14 Ur Phencyclidine Scrn Negative (NEGATIVE) 10/29/17 18:14 Ur Amphetamines Screen Negative (NEGATIVE) 10/29/17 18:14 U Benzodiazepines Scrn Positive (NEGATIVE) H 10/29/17 18:14 U Oth Cocaine Metabols Positive (NEGATIVE) H 10/29/17 18:14 U Cannabinoids Screen Negative (NEGATIVE) 10/29/17 18:14 Hepatitis A IgM Ab Negative (NEGATIVE) 10/29/17 12:55 Hep Bs Antigen Negative (NEGATIVE) 10/29/17 12:55 Hep B Core IgM Ab Negative (NEGATIVE) 10/29/17 12:55 Hepatitis C Antibody Negative (NEGATIVE) 10/29/17 12:55 HIV 1&2 Ag/Ab, 4th Gen Nonreactive (Nonreactive) 10/29/17 12:55 Attending/Attestation - Attestation I have personally seen and examined this patient.: Yes I have fully participated in the care of the patient.: Yes I have reviewed all pertinent clinical information, including history, physical exam and plan: Yes Notes (Text): 11/01/17 12:56 attending note; Patient seen and examined with resident. Patient is a 56 -year-old male with PMH of hypertension, opiate abuse, cocaine abuse, alcohol abuse, active smoking and COPD is admitted for uncontrolled blood pressure and decreased sensation on the left side of the face and arm. currently blood pressure is improving. on hydralazine, Norvasc,Diovan and metoprolol. EKG showed nonspecific ST-T changes. Cardiac enzymes negative. Echocardiogram showed ejection fraction of 55%. currently Patient denies any headache. Denies any chest pain. Denies any shortness of breath. CT head is negative. Neurology evaluation appreciated. CTA is normal. MRI of the brain is negative. patient is complaining of severe depression. psychiatric evaluation appreciated. Case discussed with . one-to-one discontinued per psychiatry. advised to follow-up [facility]. Information given. active smoking; smoking cessation is advised. Started on NicoDerm patch. Alcohol abuse; alcohol cessation is advised. active IV heroin abuse. Monitor closely. hepatitis is negative. HIV is negative. Complete drug abuse cessation Is strongly advised. discharge patient home with close follow up with PMD. upon discharge the patient will follow-up with PMD Dr. Franco.
--- NOTE | 2017-11-01 12:13 | CP.PCM.PCO ---
Addendum Addendum: 11/01/17 12:12 Dictated psychiatric f/u note from 10/31/17 has not been transcribed yet. Patient is psychiatrically cleared to be discharged. He is not an acute danger to himself or other.
--- NOTE | 2017-11-02 08:45 | CON ---
DATE: HISTORY OF PRESENT ILLNESS: The patient is a 56-year-old male with no formal previous psychiatric history who came to the ER complaining of hypertension, COPD as well as complains about forgetfulness. Psychiatry consult was called because of evaluation of possible suicidal thoughts, which patient brought up and was asked to consult with medical team during evaluation in the medical site. Dr. Coats met with him yesterday and patient was inconsistent regarding his symptoms, history, and does not appear to be psychotic, and was not forthcoming about his substance abuse. Patient reports multiple major issues including homelessness and pending eviction. Patient also reports unemployment. During this evaluation, he reports some vague thoughts of giving up, however, did not admit to any suicidal thoughts with plan or intent or . As noted, he denies hearing voices and by Dr. Coats. I met with the patient at bedside and he was alert and oriented to month, year, location, circumstances during course of my interview. Regarding his depression, he could "be better." The patient denies having any hallucinations and reports that he wants to live. He does not have any active suicidal thoughts or issues of possible eviction, current drug use which he vaguely admitted to during my interview with him today, stressing and overwhelming him and he will be much better if the issues "were gotten rid of." Patient reports that he has been sleeping well. He reports some fatigue, nightmares, and again the patient indicates his major issues are pending eviction, current drug use, and at one point he admits to some "course hearings that he has pending." Patient is future oriented. He is interested in rehab, indicates that "it would be much better than being on the street." Has been in fair control on the unit and there has not been any major behavioral issues and he presents coherent and goal directed, neutral affect. Does not appear to be in acute distress at this time. Patient also denies being on any current discomfort, but does report to having anxiety and requests Xanax. IMPRESSION: Rule out substance-induced mood disorder, mood disorder not otherwise specified, secondary gain cannot be excluded and likely a component of the patient's presentation and request psychiatric evaluation. RELEVANT PSYCHIATRIC MEDICATIONS: Include Ativan 1 mg IV every six hours p.r.n. which the patient received one dose early this morning. RECOMMENDATIONS: 1. We will continue with Ativan p.r.n. to help with anxiety and the treatment of possible patient's withdrawal. Patient is still not acutely forthcoming with the amount of drugs versus alcohol he has been using, but does admit to using Xanax in the past and reports that Xanax has been beneficial for him for anxiety. Patient was informed that Xanax is very addictive and will not be prescribed for him. However, Ativan could be continued to help at least with anxiety as well as possible withdrawal. 2. Patient would benefit from rehab and this provider recommends that social media job [employer] talk with the patient about this option. 3. Patient would also benefit from naltrexone and discuss this option with the patient; however, started until patient has been clear off opioids for at least a week and/or clear off alcohol for at least three days. Unclear if the patient is truly motivated to remain abstinent as his main motivation from rehab was to avoid being "on the street". Patient is not appropriate for the psychiatric unit. He is not an acute danger to himself, he is oriented. He wants to live; however, he is unhappy about his Xanax addiction and drug use and most appropriate disposition at this time would be rehab as major stressor of polysubstance abuse/dependency. Psychiatry will sign off at this time. Please re-consult as necessary if there are any acute changes in the patient's presentation. He is not a danger to himself or others. Alfredo Houser MD
--- NOTE | 2017-11-02 11:40 | CP.PCM.PCO ---
Physician Communication Note - Physician Communication Note Physician Communication Note: pt was d/c
== END 2017-11-01 10:36 | disposition home or self-care (01) | DRG 134 ==
LOC: ED 12:09 → ERH 14:40 → 2RNO 16:36 → OBSVTOIN 10-30 11:10 → 3RNO 10-31 15:58
PROVIDERS: ADMIT Internal Medicine; ATTEND Internal Medicine
DX: I16.0 Hypertensive urgency (principal); J44.9 Chronic obstructive pulmonary disease, unspecified; F11.10 Opioid abuse, uncomplicated; F14.10 Cocaine abuse, uncomplicated; I10 Essential (primary) hypertension; F10.10 Alcohol abuse, uncomplicated; F17.200 Nicotine dependence, unspecified, uncomplicated; F32.89 Other specified depressive episodes; F41.9 Anxiety disorder, unspecified; R45.851 Suicidal ideations; Z59.0 Homelessness; Z79.02 Long term (current) use of antithrombotics/antiplatelets; Z91.14 Patient's other noncompliance with medication regimen; Z88.6 Allergy status to analgesic agent; Z88.8 Allergy status to other drugs, medicaments and biological substances; I45.10 Unspecified right bundle-branch block

== ENCOUNTER 2018-01-08 17:09 | Emergency (ER) | payer MEDICAID ==
--- NOTE | 2018-01-08 17:17 | ED PDOC ---
Arrival/HPI - General Time Seen by Provider: 01/08/18 17:11 Historian: Patient - History of Present Illness Narrative History of Present Illness (Text): 01/08/18 17:14 57 y/o male, pmh including htn and taking plavix, GCS 15, psychiatric including alcohol/drug abuse, last tetanus doesn't remember, biba for heroine abuse and fall on the ground. Pt. was at his friend's house, using heroine, fall and landed on the frontal forehead/nasal, sustained abrasion and epistaxis, gave narcan 2mg intranasaly on the scene which he woke up completely, not complaining of any pain except nose bleeding. Pt. has no chest pain or shortness of breath, no palpitation, no numbness or tingling, no change in vision, no other medical or psychological complaints. Past Medical History - Provider Review Nursing Documentation Reviewed: Yes - Infectious Disease Hx of Infectious Diseases: None - Tetanus Immunization Tetanus Immunization: Unknown - Cardiac Hx Hypertension: Yes - Pulmonary Hx Chronic Obstructive Pulmonary Disease (COPD): Yes - Neurological Hx Seizures: Yes - HEENT Hx HEENT Disorder: No - Renal Hx Renal Disorder: No - Endocrine/Metabolic Hx Endocrine Disorders: No - Hematological/Oncological Hx Cancer: No - Integumentary Hx Dermatological Disorder: Yes Other/Comment: red rash to ble, left knee bruise and abrasion, left arm abrasions, unkempt with dirty hands fingernails and toenails, tatoos. reddness buttocks - Musculoskeletal/Rheumatological Hx Musculoskeletal Disorders: Yes Hx Falls: Yes - Gastrointestinal Hx Irritable Bowel: No - Genitourinary/Gynecological Hx Sexually Transmitted Diseases: No - Psychiatric Hx Substance Use: Yes - Surgical History Hx Musculoskeletal Surgery: Yes (carpal tunnel right) - Anesthesia Hx Anesthesia: Yes Hx Anesthesia Reactions: No Hx Malignant Hyperthermia: No - Suicidal Assessment Feels Threatened In Home Enviroment: No Family/Social History - Physician Review Nursing Documentation Reviewed: Yes Family/Social History: Unknown Family HX Smoking Status: Heavy Smoker > 10 Cigarettes Daily Hx Alcohol Use: Yes (ETOH ABUSE.STATES DRINKS OCCASIONALLY) Hx Substance Use: Yes Hx Substance Use Treatment: No Allergies/Home Meds Allergies/Adverse Reactions: Allergies ibuprofen [From Motrin] Allergy (Verified 11/24/17 17:27) RASH naproxen [From Aleve] Allergy (Verified 11/24/17 17:27) ANAPHYLAXIS zolpidem [From Ambien] Allergy (Verified 11/24/17 17:27) HEADACHE anti inflammatories Allergy (Intermediate, Uncoded 11/24/17 17:27) SWELLING Home Medications: Home Meds Medication Instructions Recorded Confirmed Clopidogrel [Plavix] 75 mg PO DAILY 10/29/17 11/24/17 Valsartan [Diovan] 160 mg PO DAILY 10/29/17 11/24/17 Review of Systems - Review of Systems Constitutional: absent: Fatigue, Fevers Eyes: absent: Vision Changes ENT: Epistaxis. absent: Hearing Changes Respiratory: absent: SOB, Cough Cardiovascular: absent: Chest Pain Gastrointestinal: absent: Abdominal Pain, Nausea, Vomiting Musculoskeletal: absent: Arthralgias, Back Pain Skin: Other (+abrasion). absent: Pruritis, Skin Lesions, Laceration, Abscess, Ulcer, Cellulitis Neurological: absent: Headache, Dizziness Psychiatric: absent: Anxiety, Depression, Suicidal Ideation Physical Exam Vital Signs Temp Pulse Resp BP Pulse Ox 01/08/18 18:45 98.6 F 100 H 20 99 01/08/18 17:12 98.6 F 110 H 20 138/84 99 - Systems Exam Head: Present: Atraumatic, Normocephalic. No: Tenderness, Contusion, Swelling, Ecchymosis, Abrasion, Laceration Pupils: Present: PERRL Extroacular Muscles: Present: EOMI Conjunctiva: Present: Normal Ears: Present: NORMAL TM, Normal Canal. No: Erythema Mouth: Present: Moist Mucous Membranes, Normal Tounge, Normal Teeth Pharnyx: No: ERYTHEMA, EXUDATE, TONSILS ENLARGED, Uvular Deviation, Muffled/ Hoarse Voice, Strider, Soft Palate/Uvular Edema Nose (External): Present: Atraumatic, Abrasion (nasal bridge), Contusion. No: Laceration, Lesions Nose (Internal): Present: Normal Inspection, No Active Bleeding. No: Rhinorrhea , Purulent Mucous, Septal Deviation, Septal Hematoma, Epistaxis Neck: Present: Normal Range of Motion, Trachea Midline. No: MIDLINE TENDERNESS , Paraspinal Tenderness, Lymphadenopathy Respiratory/Chest: Present: Clear to Auscultation, Good Air Exchange. No: Respiratory Distress, Accessory Muscle Use Cardiovascular: Present: Regular Rate and Rhythm, Normal S1, S2. No: Murmurs Abdomen: No: Tenderness, Distention, Peritoneal Signs Back: Present: Normal Inspection Upper Extremity: Present: Normal Inspection, Normal ROM, Neurovascularly Intact , Capillary Refill < 2s. No: Cyanosis, Edema, Tenderness, Swelling, Erythema, Deformity Lower Extremity: Present: Normal Inspection, NORMAL PULSES, Normal ROM, Neurovascularly Intact, Capillary Refill < 2 s. No: Edema, Tenderness, Swelling , Deformity Neurological: Present: GCS=15, CN II-XII Intact, Speech Normal, Motor Func Grossly Intact, Gait Normal, Memory Normal Skin: Present: Warm, Dry, Normal Color. No: Rashes Psychiatric: Present: Alert, Oriented x 3, Normal Insight, Normal Concentration Medical Decision Making ED Course and Treatment: 01/08/18 17:17 -tdap/tylenol -CT head/facial -wound irrigated with saline, clean with betadine, bacitracin and gauze dressing. -Observe and reassess 01/08/18 18:45 -CT Head: No acute intracranial hemorrhage. Suspect minimal chronic periventricular white matter ischemic changes. Right-sided facial soft tissue swelling extends superiorly into the right periorbital region as well as soft tissues overlying the frontal scalp. Questionable nondisplaced midline anterior nasal bone. Fracture -CT maxillofacial: Suspect minimal nondisplaced anterior midline nasal bone fractures. There is right-sided facial soft swelling that extends medially over the bridge of the nasal bones and bridge of nose/glabella region and into the right/ mid frontal scalp. See above discussion for additional details. -All labs and radiology results discussed with the patient and he awared he needs outpatient ENT follow up. -Pt. getting up from the stretcher, walking around independently without any support, walking with normal gait and posture, stated that he has been in the ER for "2 hours" now, refused to stay, stated that he is gonna walk out the door , HR 100 (as he is angry that he is here at the ER), request discharge paper, doesn't wanna observe any further as he was given narcan about 2 hours ago, stated that he knows his own body, just need the paper to go with refused to wait any longer, limited communication can be done with the patient as he is being very pushy about leaving. -Discharge home with augmentin, afrin, tylenol, bacitracin oinment, ice compression, avoid blowing or touching the nose, avoid using heroine, follow up with your own pmd and ENT within 2 days, return to the ER for any new or worsening signs or symptoms. - RAD Interpretation Radiology Orders: 01/08/18 17:18 HEAD W/O CONTRAST [CT] Stat MAXILLOFACIAL W/O CONTRAST [CT] Stat CT head; Date of service: 01/08/2018 PROCEDURE: CT HEAD WITHOUT CONTRAST. HISTORY: Status post fall COMPARISON: Correlation made with concurrent CT scan maxillofacial skeleton prior MRI of the brain 10/30/2017. TECHNIQUE: Axial computed tomography images were obtained through the head/brain without intravenous contrast. Radiation dose: Total exam DLP = 1020.92 mGy-cm. This CT exam was performed using one or more of the following dose reduction techniques: Automated exposure control, adjustment of the mA and/or kV according to patient size, and/or use of iterative reconstruction technique. FINDINGS: HEMORRHAGE: No intracranial hemorrhage. BRAIN: Suspect minimal chronic periventricular white matter ischemic changes. VENTRICLES: Unremarkable. No hydrocephalus. CALVARIUM: No acute calvarial fractures. . There is mild right premaxillary and infraorbital/periorbital soft tissue swelling that extends superiorly into the supraorbital and soft tissues and frontal scalp. There also appears to be mild soft tissue swelling over the nasal bones. . . Questionable of small midline fracture nasal bones. . PARANASAL SINUSES: Moderate-sized focus of polypoid like mucosal thickening or mucous retention cyst formation left chamber sphenoid sinus. MASTOID AIR CELLS: Unremarkable as visualized. No inflammatory changes. OTHER FINDINGS: None. IMPRESSION: No acute intracranial hemorrhage. Suspect minimal chronic periventricular white matter ischemic changes Right-sided facial soft tissue swelling extends superiorly into the right periorbital region as well as soft tissues overlying the frontal scalp. Questionable nondisplaced midline anterior nasal bone. Fracture CT facial: Date of service: 01/08/2018 PROCEDURE: CT MAXILLOFACIAL BONES WITHOUT CONTRAST HISTORY: Status post fall with nasal injury. COMPARISON: No prior study available comparison. TECHNIQUE: Contiguous axial CT images of the maxillofacial bones were obtained. Coronal and sagittal reformats were generated. Radiation dose: Total exam DLP = 764.36 mGy-cm. This CT exam was performed using one or more of the following dose reduction techniques: Automated exposure control, adjustment of the mA and/or kV according to patient size, and/or use of iterative reconstruction technique. FINDINGS: NASAL BONES: Suspect minimal anterior midline nondisplaced fracture nasal bones. ORBITS: There is mild right periorbital soft tissue swelling that extends medially over the nasal bones and bridge of the nose and inferiorly into the premaxillary soft tissues. There is also extension of soft tissue swelling into right and mid frontal scalp. PARANASAL SINUSES/ MASTOIDS: Clear. MAXILLA: Questionable minimally displaced tiny fracture anterior nasal spine of versus possible anatomic variant. There is also questionable anterior midline nondisplaced fracture nasal bones. MANDIBLE/ TEMPOROMANDIBULAR JOINTS: Unremarkable. SKULL BASE: Unremarkable. TEMPORAL BONES: Partial opacification right mastoid air complex with soft tissue also seen in the middle ear canal. No evidence of destructive changes of the drum spur or ossicular chains. OTHER FINDINGS: Note made of of what appears represent residual/retained secretion within right and mid aspect of the vallecula. IMPRESSION: Suspect minimal nondisplaced anterior midline nasal bone fractures. There is right-sided facial soft swelling that extends medially over the bridge of the nasal bones and bridge of nose/glabella region and into the right/ mid frontal scalp. See above discussion for additional details. Employee Relations Assistant: Radiologist - Medication Orders Current Medication Orders: Discontinued Medications Acetaminophen (Tylenol 325mg Tab) 325 mg PO STAT STA Stop: 01/08/18 17:20 Last Admin: 01/08/18 18:48 Dose: Not Given Non-Admin Reason: Patient Refused Tetanus/Reduced Diphtheria/Acell Pertussis (Boostrix Vaccine Inj) 0.5 ml IM .ONCE ONE Stop: 01/08/18 17:19 Last Admin: 01/08/18 18:47 Dose: MAR Immunization Data Document 01/08/18 18:47 TA (Rec: 01/08/18 18:47 TA RECOVERED-LAP) Immunization Data Vaccine Information Sheet Given No Immunization Registry Document 01/08/18 18:47 TA (Rec: 01/08/18 18:47 TA RECOVERED-LAP) Immunization Registry Consent Date 01/08/18 - PA / INFANTRYMAN / Resident Statement / has reviewed & agrees with the documentation as recorded. Disposition/Present on Arrival - Present on Arrival Any Indicators Present on Arrival: No History of DVT/PE: Yes History of Uncontrolled Diabetes: Yes Urinary Catheter: Yes History of Decub. Ulcer: No History Surgical Site Infection Following: None - Disposition Have Diagnosis and Disposition been Completed?: Yes Diagnosis: Nasal fracture, Abrasion, Drug abuse, Fall, Non-compliance Disposition: HOME/ ROUTINE Disposition Time: 17:18 Patient Plan: Discharge Condition: GOOD Additional Instructions: -Discharge home with augmentin, afrin, tylenol, bacitracin oinment, ice compression, avoid blowing or touching the nose, avoid using heroine, follow up with your own pmd and ENT within 2 days, return to the ER for any new or worsening signs or symptoms. Prescriptions: Acetaminophen [Tylenol 325mg tab] 325 mg PO QID PRN #30 tab PRN Reason: Other Amoxicillin/Clavulanate [Augmentin 875 MG-125 MG] 1 tab PO BID #20 tab Bacitracin Ointment [Bacitracin] 1 appful TOP BID #15 g Oxymetazoline 0.05% [Oxymetazoline HCl 30 Ml] 2 spray NS BID #1 bottle Referrals: Manpreet Morales DO [Staff Provider] - Follow up with primary [facility] at [facility] [place] [Outside] - Follow up with primary Forms: WORK NOTE
[2018-01-08] MEDS ORDERED: TDAP Vaccine 0.5 mL Syr IM ONE (17:18)
[2018-01-08 17:27] VITALS: BP 138/84; RESP 20; TEMP 98.6; O2SAT 99; BMI 27.1
--- NOTE | 2018-01-08 18:28 | CT ---
Date of service: 01/08/2018 PROCEDURE: CT HEAD WITHOUT CONTRAST. HISTORY: Status post fall COMPARISON: Correlation made with concurrent CT scan maxillofacial skeleton prior MRI of the brain 10/30/2017. TECHNIQUE: Axial computed tomography images were obtained through the head/brain without intravenous contrast. Radiation dose: Total exam DLP = 1020.92 mGy-cm. This CT exam was performed using one or more of the following dose reduction techniques: Automated exposure control, adjustment of the mA and/or kV according to patient size, and/or use of iterative reconstruction technique. FINDINGS: HEMORRHAGE: No intracranial hemorrhage. BRAIN: Suspect minimal chronic periventricular white matter ischemic changes. VENTRICLES: Unremarkable. No hydrocephalus. CALVARIUM: No acute calvarial fractures. . There is mild right premaxillary and infraorbital/periorbital soft tissue swelling that extends superiorly into the supraorbital and soft tissues and frontal scalp. There also appears to be mild soft tissue swelling over the nasal bones. . . Questionable of small midline fracture nasal bones. . PARANASAL SINUSES: Moderate-sized focus of polypoid like mucosal thickening or mucous retention cyst formation left chamber sphenoid sinus. MASTOID AIR CELLS: Unremarkable as visualized. No inflammatory changes. OTHER FINDINGS: None. IMPRESSION: No acute intracranial hemorrhage. Suspect minimal chronic periventricular white matter ischemic changes Right-sided facial soft tissue swelling extends superiorly into the right periorbital region as well as soft tissues overlying the frontal scalp. Questionable nondisplaced midline anterior nasal bone. Fracture
--- NOTE | 2018-01-08 18:36 | CT ---
Date of service: 01/08/2018 PROCEDURE: CT MAXILLOFACIAL BONES WITHOUT CONTRAST HISTORY: Status post fall with nasal injury. COMPARISON: No prior study available comparison. TECHNIQUE: Contiguous axial CT images of the maxillofacial bones were obtained. Coronal and sagittal reformats were generated. Radiation dose: Total exam DLP = 764.36 mGy-cm. This CT exam was performed using one or more of the following dose reduction techniques: Automated exposure control, adjustment of the mA and/or kV according to patient size, and/or use of iterative reconstruction technique. FINDINGS: NASAL BONES: Suspect minimal anterior midline nondisplaced fracture nasal bones. ORBITS: There is mild right periorbital soft tissue swelling that extends medially over the nasal bones and bridge of the nose and inferiorly into the premaxillary soft tissues. There is also extension of soft tissue swelling into right and mid frontal scalp. PARANASAL SINUSES/ MASTOIDS: Clear. MAXILLA: Questionable minimally displaced tiny fracture anterior nasal spine of versus possible anatomic variant. There is also questionable anterior midline nondisplaced fracture nasal bones. MANDIBLE/ TEMPOROMANDIBULAR JOINTS: Unremarkable. SKULL BASE: Unremarkable. TEMPORAL BONES: Partial opacification right mastoid air complex with soft tissue also seen in the middle ear canal. No evidence of destructive changes of the drum spur or ossicular chains. OTHER FINDINGS: Note made of of what appears represent residual/retained secretion within right and mid aspect of the vallecula. IMPRESSION: Suspect minimal nondisplaced anterior midline nasal bone fractures. There is right-sided facial soft swelling that extends medially over the bridge of the nasal bones and bridge of nose/glabella region and into the right/ mid frontal scalp. See above discussion for additional details.
[2018-01-08 18:45] VITALS: PULSE 100
--- NOTE | 2018-01-08 23:05 | CARD ---
APPROVED REPORT Date of service: 01/08/2018 EKG Measurement Heart [id number] <Conclusion> Sinus tachycardia Possible Left atrial enlargement Left axis deviation Incomplete right bundle branch block Left ventricular hypertrophy Abnormal ECG
== END 2018-01-08 18:45 | disposition home or self-care (01) ==
LOC: ED 17:09
DX: S02.2XXA Fracture of nasal bones, initial encounter for closed fracture (principal); S00.81XA Abrasion of other part of head, initial encounter; W19.XXXA Unspecified fall, initial encounter; I10 Essential (primary) hypertension; F17.210 Nicotine dependence, cigarettes, uncomplicated; E11.9 Type 2 diabetes mellitus without complications; F19.10 Other psychoactive substance abuse, uncomplicated; Z91.19 Patient's noncompliance with other medical treatment and regimen

== ENCOUNTER 2018-05-16 10:12 | Inpatient (IN) | payer MEDICAID ==
[2018-05-16 10:13] VITALS: BMI 25.7
[2018-05-16 11:17] LABS: BASO # 0.02 K/mm3 (0.0-2.0); BASO % 0.3 % (0.0-3.0); HEMOGLOBIN 14.2 g/dL (14.0-18.0); MEAN CELL VOLUME 85.1 fl (80.0-105.0); MEAN CORPUSCULAR HEMOGLOBIN 27.8 pg (25.0-35.0); MEAN CORPUSCULAR HGB CONC 32.6 g/dl (31.0-37.0); MEAN PLATELET VOLUME 10.3 fl (7.0-11.0); RBC 5.11 10^6/uL (3.5-6.1); RED CELL DISTRIBUTION WIDTH 15.2 % (11.5-14.5); WHITE BLOOD COUNT 7.7 10^3/uL (4.5-11.0)
[2018-05-16 11:20] LABS: EOS % 0.1 % (1.5-5.0); GRAN # 6.39 (1.4-6.5); GRAN % 85.5 % (50.0-68.0); LYMPH # 0.8 (1.2-3.4); LYMPH % 10.8 % (22.0-35.0); MONO # 0.2 (0.1-0.6); MONO % 3.2 % (1.0-6.0)
--- NOTE | 2018-05-16 11:32 | RAD ---
HISTORY: PES COMPARISON: Chest x-ray performed 10/29/17 TECHNIQUE: Chest, one view. FINDINGS: LUNGS: Hyperinflation may be seen in the setting of COPD. No focal consolidation. Right upper lobe calcified granuloma. Please note that chest x-ray has limited sensitivity for the detection of pulmonary masses. PLEURA: No significant pleural effusion identified. No definite pneumothorax . CARDIOVASCULAR: Heart size appears top normal. Atherosclerotic calcification present. OSSEOUS STRUCTURES: Degenerative changes. VISUALIZED UPPER ABDOMEN: Unremarkable. OTHER FINDINGS: None. IMPRESSION: Hyperinflation may be seen in setting of COPD. Small right upper lobe calcified granuloma.
[2018-05-16 11:42] LABS: ACETAMINOPHEN < 10.0 ug/ml (10.0-20.0); ALB/GLOB RATIO 1.2 (1.1-1.8); ALBUMIN 3.8 g/dL (3.0-4.8); ALT/SGPT 31 U/L (7-56); AST/SGOT 56 U/L (17-59); BLOOD UREA NITROGEN 15 mg/dL (7-21); CALCIUM 9.1 mg/dL (8.4-10.5); GFR NON-AFRICAN AMERICAN > 60; SALICYLATE < 1 mg/dL (2.0-20.0)
--- NOTE | 2018-05-16 11:56 | ED PDOC ---
Arrival/HPI - General Chief Complaint: Psychiatric Evaluation Time Seen by Provider: 05/16/18 10:14 Historian: Patient - History of Present Illness Narrative History of Present Illness (Text): 05/16/18 11:45 57-year-old male with a history of depression presents today with depression and suicidal ideation. Patient states he's been increasingly feeling more and more depressed over the past month. Patient states he recently got out of her long- term relationship. Patient has thoughts of suicide by overdose. Patient states he has had a prior suicide attempt via overdose in the past. Patient denies chest pain or shortness of breath. No fevers or chills. Denies trauma or injury. No other complaints Past Medical History - Provider Review Nursing Documentation Reviewed: Yes - Travel History Have you recently traveled outside [place] w/in the past 3 mons?: No - Infectious Disease Hx of Infectious Diseases: None - Tetanus Immunization Tetanus Immunization: Unknown - Cardiac Hx Cardiac Disorders: No Hx Hypertension: Yes (non complaint.) - Pulmonary Hx Tuberculosis: No - Neurological HX Cerebrovascular Accident: No Hx Seizures: Yes - HEENT Hx HEENT Disorder: No - Renal Hx Renal Disorder: Yes Hx Kidney Stones: Yes - Endocrine/Metabolic Hx Endocrine Disorders: No - Hematological/Oncological Hx Cancer: No - Integumentary Hx Dermatological Disorder: Yes Other/Comment: red rash to ble, left knee bruise and abrasion, left arm abrasion s, unkempt with dirty hands fingernails and toenails, tatoos. reddness buttocks - Musculoskeletal/Rheumatological Hx Falls: No - Gastrointestinal Hx Irritable Bowel: No - Genitourinary/Gynecological Hx Sexually Transmitted Diseases: No - Psychiatric Hx Psychophysiologic Disorder: Yes (HEROIN AND COCAINE ABUSE,SNIFFS IVDU,DRINKS ALCOHOL ON OCCASION,SMOKES CIGA) Hx Emotional Abuse: No Hx Physical Abuse: No Hx Substance Use: Yes - Surgical History Hx Musculoskeletal Surgery: Yes (carpal tunnel right) - Anesthesia Hx Anesthesia: Yes Hx Anesthesia Reactions: No Hx Malignant Hyperthermia: No - Suicidal Assessment Feels Threatened In Home Enviroment: No Family/Social History - Physician Review Nursing Documentation Reviewed: Yes Family/Social History: Unknown Family HX Smoking Status: Former Smoker Hx Alcohol Use: Yes Hx Substance Use: Yes Substance used: HEROIN Hx Substance Use Treatment: No Allergies/Home Meds Allergies/Adverse Reactions: Allergies ibuprofen [From Motrin] Allergy (Verified 03/26/18 11:13) RASH naproxen [From Aleve] Allergy (Verified 03/26/18 11:13) ANAPHYLAXIS zolpidem [From Ambien] Allergy (Verified 03/26/18 11:13) HEADACHE anti inflammatories Allergy (Intermediate, Uncoded 03/26/18 11:13) SWELLING Review of Systems - Review of Systems Constitutional: absent: Fatigue, Fevers Respiratory: absent: SOB, Cough Cardiovascular: absent: Chest Pain, Palpitations Gastrointestinal: absent: Abdominal Pain, Constipation, Diarrhea, Nausea, Vomiting Genitourinary Male: absent: Dysuria Musculoskeletal: absent: Arthralgias Skin: absent: Rash, Pruritis Neurological: absent: Headache, Dizziness Psychiatric: Depression, Suicidal Ideation. absent: Anxiety Physical Exam Vital Signs Reviewed: Yes Vital Signs Temp Pulse Resp BP Pulse Ox 05/16/18 11:34 98.3 F 74 18 161/109 H 95 Temperature: Afebrile Blood Pressure: Hypertensive Pulse: Regular Respiratory Rate: Normal Appearance: Positive for: Well-Appearing, Non-Toxic, Comfortable Pain Distress: None Mental Status: Positive for: Alert and Oriented X 3 - Systems Exam Head: Present: Atraumatic Neck: Present: Normal Range of Motion Respiratory/Chest: Present: Clear to Auscultation, Good Air Exchange. No: Respiratory Distress, Accessory Muscle Use Cardiovascular: Present: Regular Rate and Rhythm, Normal S1, S2. No: Murmurs Abdomen: No: Tenderness, Rebound, Guarding Upper Extremity: Present: Normal ROM Lower Extremity: Present: Normal ROM Neurological: Present: GCS=15 Skin: Present: Warm, Dry, Normal Color. No: Rashes Psychiatric: Present: Alert, Oriented x 3, Depressed Mood, Suicidal Ideation Medical Decision Making ED Course and Treatment: 05/16/18 11:46 Patient is nontoxic well-appearing in no distress vital signs are stable. CBC WNL CMP WNL Tylenol WNL Salicylate WNL Alcohol level WNL Urine drug screen + opiates, + benzos UA; trace blood cxr: wnl ekg normal sinus rhythm at 80 bpm incomplete right bundle branch block pt is medically cleared for PES evaluation Patient was seen and evaluated by PES screener: GAEL pt signed voluntarily to Psych floor for depression Impression; depression, SI admit to behavioral health floor - Lab Interpretations Lab Results: 05/16/18 11:00 05/16/18 11:00 Lab Results 05/16/18 11:00: Alcohol, Quantitative < 10 05/16/18 11:00: Salicylates < 1 L, Acetaminophen < 10.0 L 05/16/18 11:00: Sodium 140, Potassium 4.0, Chloride 105, Carbon Dioxide 24, Anion Gap 15, BUN 15, Creatinine 0.9, Est GFR ( Amer) > 60, Est GFR (Non- Af Amer) > 60, Random Glucose 92, Calcium 9.1, Total Bilirubin 1.0, AST 56, ALT 31, Alkaline Phosphatase 80, Total Protein 6.9, Albumin 3.8, Globulin 3.1, Al bumin/Globulin Ratio 1.2 05/16/18 11:00: WBC 7.7, RBC 5.11, Hgb 14.2, Hct 43.5, MCV 85.1, MCH 27.8, MCHC 32.6, RDW 15.2 H, Plt Count 192, MPV 10.3, Gran % 85.5 H, Lymph % (Auto) 10.8 L, [place] % (Auto) 3.2, Eos % (Auto) 0.1 L, Baso % (Auto) 0.3, Gran # 6.39, Lymph # (Auto) 0.8 L, [place] # (Auto) 0.2, Eos # (Auto) 0.0, Baso # (Auto) 0.02 - RAD Interpretation Radiology Orders: 05/16/18 11:00 CHEST PORTABLE [RAD] Stat Disposition/Present on Arrival - Present on Arrival Any Indicators Present on Arrival: No History of DVT/PE: No History of Uncontrolled Diabetes: No Urinary Catheter: No History of Decub. Ulcer: No History Surgical Site Infection Following: None - Disposition Have Diagnosis and Disposition been Completed?: Yes Diagnosis: Depression Disposition: HOSPITALIZED Disposition Time: 12:15 Patient Plan: Admission Condition: FAIR Forms: [facility] [facility] (Indonesian)
[2018-05-16 11:57] LABS: URINE BILIRUBIN MODERATE (NEGATIVE); URINE BLOOD TRACE-LYSED (NEGATIVE); URINE GLUCOSE (UA) NEGATIVE (NEGATIVE); URINE LEUKOCYTE ESTERASE NEGATIVE Leu/uL (NEGATIVE); URINE PROTEIN 100 mg/dL (<30 mg/dL); URINE UROBILINOGEN 0.2 E.U./dL (<1 E.U./dL)
[2018-05-16 12:01] LABS: BARBITURATES, UR NEGATIVE (NEGATIVE); BENZODIAZEPINES, UR POSITIVE (NEGATIVE); OPIATES, UR POSITIVE (NEGATIVE); PHENCYCLIDINE, UR NEGATIVE (NEGATIVE)
[2018-05-16 12:11] LABS: URINE APPEARANCE CLEAR (CLEAR); URINE COLOR YELLOW (YELLOW)
[2018-05-16 12:37] LABS: URINE BACTERIA TRACE (NEG); URINE RBC 0 - 2 /hpf (0-2)
[2018-05-16 13:56] VITALS: O2SAT 97
[2018-05-16] MEDS ORDERED: Magnesium Hydroxide Susp 30 ml UD PO PRN (15:52)
[2018-05-16] MEDS ORDERED: Alum-Mag Hydrox-Simethicone Susp (30 mL) PO PRN (15:52)
--- NOTE | 2018-05-16 18:54 | PCM.BM ---
<PammaryanKelley nix - Last Filed: 05/16/18 18:51> Treatment Plan Problems - Problems identified on initial assessmt anxiety Date Initiated: 05/16/18 Time Initiated: 18:52 Assessment reference: NA Status: Active Priority: 1 Comment: restless, unease insomnia Date Initiated: 05/16/18 Time Initiated: 18:54 Assessment reference: NA Status: Active Priority: 2 self care deficit Date Initiated: 05/16/18 Time Initiated: 18:55 Assessment reference: NA Priority: 3 substance abuse Date Initiated: 05/16/18 Time Initiated: 18:56 Assessment reference: NA Status: Active Priority: 4 Comment: opiates, benzos Treatment assets and liabiliti Patient Assests: insightful, ADL independent, negotiates basic needs, cognitively intact (Opiates) Patient Liabilities: live alone, poor support system, substance abuse - Milieu Protocol Maintain good personal hygiene: every shift Encourage regular showers, every shift Remind patient to perform daily oral care, every shift Assist patient to perform ADL's Conduct patient checks and document Observation sheet: Q15 minutes Maintain personal safety: every shift Educate patient to report safety concerns to staff, every shift Monitor environment for contraband/sharps Medication safety: Monitor for expected outcome, potential side effects: every shift, Assess barriers to learning: every shift, Assess readiness for medication education: every shift Family Contact Family involvement: Famliy/SO not involved Family contact: Patient declines to allow family contact at present Discharge/Continuing Care - Education Needs Education Needs: Patient Medication, Patient Diagnosis/Disease Process, Patient Coping Skills, Patient Anger Management skills, Patient Placement options, Patient Community resources, Patient Activities of Daily Living, Patient Nutrition, Patient Personal Hygiene/Grooming - Discharge Discharge Criteria: Normal sleep pattern, Ability to care for self, No longer exhibiting s/s of withdrawal, Reduction of target symptoms Discharge to:: Substance Abuse Rehab - Treatment Team Participation Discussed with Family/SO: No Was Patient/Family/SO present at Treatment Team Meeting: No <Tali Saenz - Last Filed: 05/17/18 13:50> Family Contact Family involvement: Famliy/SO not involved <Fred Emery - Last Filed: 05/24/18 12:44>
--- NOTE | 2018-05-16 22:19 | CARD ---
APPROVED REPORT Date of service: 05/16/2018 EKG Measurement Heart [id number] ID [id number] <Conclusion> Normal sinus rhythm Left axis deviation Incomplete right bundle branch block Left ventricular hypertrophy Abnormal ECG
--- NOTE | 2018-05-17 12:49 | CP.PCM.PCO ---
Physician Communication Note - Physician Communication Note Physician Communication Note: Please recheck blood pressure in 30 minuts
--- NOTE | 2018-05-17 14:14 | PCM.PSYCH ---
Initial Psychiatric Evaluation - Initial Psychiatric Evaluation Type of Admission: Voluntary Legal Status: Capacity (pt has a capacity to sign consent for treatment. ) Chief Complaint (in patient's own words): "suboxone will be a good option for me right now..." Patient's Reaction to Hospitalization: pt was admitted for evaluation of depressive symptoms, possible suicidal ideation with the plan to overdose on drugs. History of Present Illness and Precipitating Events: shortly patient is 57-year-old male with a history of depression, opioid use disorder, h/o detoxes and rehabs, recent d/c from the [facility] 02/2018, pt has questionable compliance with meds and follow up appts, came to the hospital reporting depressed mood and possible suicidal ideation. As per ER report pt been increasingly feeling more and more depressed over the past month, states he recently got out of her long-term relationship. Patient has thoughts of suicide by overdose. as per RN report pt was guarded, was not forthcoming with information, but no agitation, no aggression. pt was seen at the treatment team meeting, pt presented much older than chronological age, disheveled, malodorous, poor hygiene, poor ADLs. during the interview pt presented with sneezing, stuffy nose, reported to have withdrawals from the opioids which he used intranasal daily "3-5 bags a day", most recent use was at the day of ED visit. pt is aware that this unit is not detox and only symptomatic treatment will be provided to the pt, pt agreed. Patient reports occasionally drinking alcohol, denied any withdrawals. Patient reports using no other drugs. Patient reports smoking 1 pack of cigarettes. Nicotine patch offered, counseling provided. pt reported after he was d/c from the [facility] pt was noncompliant with meds and aftercare plan. pt said he was feeling "miserable" due to his life events, pt broke up with his girlfriend on April 2017, currently pt is homeless, using drugs, "I am feeling depressed and everything is falling apart", pt reported having thoughts of committing suicide by overdose, denied any intent or plan to end up his life, "I am still thinking about it...." pt denied hearing voices or seeing things, pt denied being paranoid, but pt presented to be guarded. pt denied abuse in his life. Past psych h/o: multiple detoxes and rehabs, one suicidal attempt by OD in August 2017. Medical h/o: Patient reports hx of COPD, uncontrolled HTN, neuropathy. Family h/o: denied. Patient reports his treatment goal is to "get back my life." d/c summary from [facility] indicated that pt long h/o of IV or intranasally opioid use since age 14, however, he states he stopped for 20 years in between. Since 1998 he has increased and steadily used. He had been admitted to detox twice and rehabilitation also twice. He overdosed on heroin twice and survived. He uses cocaine intranasally on and off Alcohol occasionally and cigarette 1 per packet day He was using Xanax "a lot" but he was able to quit in 2007 with much complication. pt was d/c to [facility] at [place]. pt was d/c on the following meds: amLODIPine [Norvasc] 10 mg PO DAILY resumed by medical team Cephalexin [Keflex] 500 mg PO TID Gabapentin [Neurontin] 300 mg PO TID Losartan [Cozaar] 100 mg PO DAILY up to the medical team Mirtazapine [Remeron] 15 mg PO HS resumed Pantoprazole [Protonix EC Tab] 20 mg PO DAILY resumed QUEtiapine [SEROquel] 50 mg PO HS resumed The patient failed the outpatient lower level of care: Yes Current Medications: Active Medications Generic Name Dose Route Start Last Admin Trade Name Freq PRN Reason Stop Dose Admin Acetaminophen 650 mg 05/16/18 15:52 Tylenol 325mg Tab PO Q4 PRN Pain, Mild (1-3) Al Hydrox/Mg Hydrox/Simethicone 30 ml 05/16/18 15:52 Maalox Plus 30 Ml PO DAILY PRN Upset Stomach Amlodipine Besylate 10 mg 05/17/18 12:45 05/17/18 12:48 Norvasc PO 10 mg DAILY CHANCE Administration Clonidine HCl 0.1 mg 05/16/18 15:34 05/17/18 12:37 Catapres PO 0.1 mg BID PRN Administration Opiate reversal Diphenhydramine HCl 50 mg 05/16/18 16:02 Benadryl PO Q8 PRN Allergy symptoms Gabapentin 300 mg 05/17/18 13:00 05/17/18 12:33 Neurontin PO 300 mg TID CHANCE Administration Protocol Haloperidol 5 mg 05/16/18 15:59 Haldol PO Q6 PRN Psychosis Protocol Hydralazine HCl 10 mg 05/17/18 12:43 Apresoline IVP Q6 PRN Systolic Blood Pressure Lorazepam 1 mg 05/16/18 15:37 05/17/18 12:32 Ativan PO 1 mg BID PRN Administration Restlessness Protocol Losartan Potassium 100 mg 05/17/18 12:45 05/17/18 12:48 Cozaar PO 100 mg DAILY CHANCE Administration Magnesium Hydroxide 30 ml 05/16/18 15:52 Milk Of Magnesia PO DAILY PRN Constipation Mirtazapine 15 mg 05/17/18 22:00 Remeron PO HS CHANCE Multivitamins/Minerals 1 tab 05/18/18 08:00 Therapeutic-M Tab PO DAILY CHANCE Ondansetron HCl 4 mg 05/17/18 10:40 Zofran Odt PO Q8H PRN Nausea/Vomiting Quetiapine Fumarate 50 mg 05/16/18 22:00 05/16/18 22:30 Seroquel PO Not Given HS CHANCE Protocol Tramadol HCl 50 mg 05/17/18 13:00 05/17/18 12:33 Ultram PO 50 mg TID CHANCE Administration Present on Admission - Present on Admission Any Indicators Present on Admission: No Review of Systems - Review of Systems Systems not reviewed;Unavailable: Acuity of Condition - Constitutional Constitutional: As Per HPI - EENT Eyes: As Per HPI Ears: As Per HPI Nose/Mouth/Throat: As Per HPI - Cardiovascular Cardiovascular: As Per HPI - Respiratory Respiratory: As Per HPI - Gastrointestinal Gastrointestinal: As Per HPI - Genitourinary Genitourinary: As Per HPI - Reproductive: Male Reproductive:Male: As Per HPI - Musculoskeletal Musculoskeletal: As Per HPI - Integumentary Integumentary: As Per HPI - Neurological Neurological: As Per HPI - Psychiatric Psychiatric: As Per HPI - Endocrine Endocrine: As Per HPI - Hematologic/Lymphatic Hematologic: As Per HPI Past Patient History - Past Psychiatric History Previous Treatment History: Inpatient (see HPI) Prior Professional Help: see HPI Prior Psychiatric Treatment: see HPI At what hospital: see HPI Duration: see HPI Nature of Treatment: see HPI Explanation of prior treatment: see HPI - PSYCHIATRIC Hx Psychophysiologic Disorder: Yes (HEROIN AND COCAINE ABUSE,SNIFFS IVDU,DRINKS ALCOHOL ON OCCASION,SMOKES CIGA) Hx Emotional Abuse: No Hx Physical Abuse: No Hx Substance Use: Yes - Infectious Disease Hx of Infectious Diseases: None - Tetanus Immunizations Tetanus Immunization: Unknown - Past Medical History & Family History Past Medical History?: No - CARDIAC Hx Cardiac Disorders: No Hx Hypertension: Yes (non complaint.) - PULMONARY Hx Respiratory Disorders: Yes Hx Tuberculosis: No - NEUROLOGICAL HX Cerebrovascular Accident: No Hx Seizures: Yes - HEENT Hx HEENT Problems: No - RENAL Hx Chronic Kidney Disease: Yes Hx Kidney Stones: Yes - ENDOCRINE/METABOLIC Hx Endocrine Disorders: No - HEMATOLOGICAL/ONCOLOGICAL Hx Cancer: No - INTEGUMENTARY Hx Dermatological Problems: Yes Other/Comment: red rash to ble, left knee bruise and abrasion, left arm abrasions, unkempt with dirty hands fingernails and toenails, tatoos. reddness buttocks - MUSCULOSKELETAL/RHEUMATOLOGICAL Hx Falls: No - GASTROINTESTINAL Hx Irritable Bowel: No - GENITOURINARY/GYNECOLOGICAL Hx Sexually Transmitted Disorders: No - SURGICAL HISTORY Hx Musculoskeletal Surgery: Yes (carpal tunnel right) - ANESTHESIA Hx Anesthesia: Yes Hx Anesthesia Reactions: No Hx Malignant Hyperthermia: No - Medical/Surgical History Reviewed & confirmed: by ct Meds Allergies/Adverse Reactions: Allergies Allergy/AdvReac Type Severity Reaction Status Date / Time ibuprofen [From Motrin] Allergy RASH Verified 03/26/18 11:13 naproxen [From Aleve] Allergy ANAPHYLAXIS Verified 03/26/18 11:13 zolpidem [From Ambien] Allergy HEADACHE Verified 03/26/18 11:13 anti inflammatories Allergy Intermediate SWELLING Uncoded 03/26/18 11:13 Mental Status Examination - Personal Presentation Personal Presentation: Looks older than stated age - Affect Affect: Constricted, Flat - Motor Activity Motor Activity: Psychomotor Retardation - Reliability in Providing Information Reliability in Providing Information: Poor, due to alteration in thoughts, Poor, due to altered mood - Speech Speech: Organized - Mood Mood: Depressed - Formal Thought Process Formal Thought Process: No Impairment - Obsessions/Compulsions Obsessions: None Compulsions: None - Cognitive Functions Orientation: Person, Place, Situation Sensorium: Alert Attention/Concentration: Easily distracted Abstract Thinking: [place] Estimate of Intelligence: Below average Judgement: Intact, as evidence by: Insight regarding need for hospitalization - Risk Risk: Suicidal, Withdrawal, Diminished functioning - Strength & Assets Inventory Strength & Assets Inventory: Cooperative - Limitations Limitations: Other (homelessness, substance abuse, poor support in the community. ) Psychiatric Physical Exam - Physical Exam Reviewed and confirmed: Emergency Department Physical Exam Results - Vital Signs Recent Vital Signs: Last Vital Signs Temp 99.4 F 05/17/18 07:15 Pulse 71 05/17/18 12:37 Resp 20 05/17/18 07:15 BP 212/143 H 05/17/18 12:48 Pulse Ox 97 05/16/18 14:07 - Labs Result Diagrams: 05/16/18 11:00 05/16/18 11:00 Labs: Laboratory Results - last 24 hr 05/17/18 06:40 TSH 3rd Generation 0.10 L - EKG Data EKG Interpreted by: ER Physician DSM Plan - DSM 5 DSM 5 Diagnosis: major depressive d/o - recurrent, severe with no psychosis r/o substance induced psychosis Opioid withdrawal Opioid use d/o - severe Cocaine use d/o - moderate Tobacco use d/o - severe Sedative hypnotic use d/o severe, in sustained remission HTN Neuropathy - Recommended/Plan of Treatment Treatment Recommendations and Plan of Treatment: Milieu/structure/supportive therapy Medical consult was called amLODIPine [Norvasc] 10 mg PO DAILY resumed by medical team Gabapentin [Neurontin] 300 mg PO TID resumed Mirtazapine [Remeron] 15 mg PO HS resumed for depression Pantoprazole [Protonix EC Tab] 20 mg PO DAILY resumed QUEtiapine [SEROquel] 50 mg PO HS resumed SW consultation for discharge plan and social issues Family involvement Follow up on labs Will monitor closely Pt was educated about risk/benefits and alternatives of medications, coping strategies (safety plan, suicide prevention), relapse prevention, importance of follow up with psychiatrist and therapist, stay away from drugs/alcohol/smoking Projected ELOS: 7days Prognosis: guarded Discharge Plan and Discharge Criteria: Pt will be not depressed or manic, will be more hopeful, will be not psychotic or anxious, will be not having thoughts of harming self or others, will be tolerating medications well, will not have major side effects, will be able to function, will not pose threat to self or others. - Tobacco Cessation Tobacco Use Status for the last 30 days: Heavy User(>=5 cigs &/or cigars/pipes daily) Tobacco Use Treatment Practical Counseling Provided: Yes Tobacco Use Treatment FDA-Approved Cessation Medication Provided: Yes Type of Medication Provided: Nicoderm CQ - Alcohol or Substance Abuse Does the patient have an Alcohol or Substance Abuse Disorder: Yes Initial Psych Certification - Initial Certification I certify that the inpatient psychiatric facility admission was medically necess soraida for either: Treatment which could reasonbly be expected to improve pt's condition I estimate of hospitalization is necessary for proper treatment of the patient: 7 Unit of Time: Days My plans for post-hospital care for this patient are: inpatient rehab
--- NOTE | 2018-05-17 14:16 | CP.PCM.HP ---
<Emre Thornton - Last Filed: 05/17/18 14:04> History of Present Illness - History of Present Illness History of Present Illness: PGY1 Medicine Consult Note for Dr. Maxwell Reason for Consult: Hypertension Urgency This is a 57-year-old PMH of depression, substance abuse (IV Heroin), Hypertens ion, COPD, and chronic non-compliance who presents to [facility] ED for suicide ideation and depression. Patient was admitted to Psychiatry unit. Patient is being treated for his psychiatric concerns and heroin withdrawal. Today patient was found to have blood pressure 212/143. Patient admits to dizziness and abdominal pain, however patient otherwise denies palpitations, chest pain, blurred vision, shortness of breath, headache, nausea, and/or vomiting. PMD: Kyle Franco APN Medications (provided to patient upon discharge from previous admission 11/01/17) * amlodipine 10 mg PO DAILY #14 tab * hydralazine 100 mg PO TID #40 tab * metoprolol Tartrate 25 mg PO BID #30 tab Allergies: * ibuprophen --> RASH * naproxen --> ANAPHYLAXIS * zolpidem --> HEADACHE * anti-inflammatories --> swelling Pharmacy: [facility] [address] [place] [address] Present on Admission - Present on Admission Any Indicators Present on Admission: No History of DVT/PE: No History of Uncontrolled Diabetes: No Urinary Catheter: No Decubitus Ulcer Present: No History Surgical Site Infection Following: None Review of Systems - Review of Systems All systems: reviewed and no additional remarkable complaints except - Constitutional Constitutional: As Per HPI - EENT Eyes: As Per HPI Ears: As Per HPI Nose/Mouth/Throat: As Per HPI - Cardiovascular Cardiovascular: As Per HPI - Respiratory Respiratory: As Per HPI - Gastrointestinal Gastrointestinal: As Per HPI - Genitourinary Genitourinary: As Per HPI - Musculoskeletal Musculoskeletal: As Per HPI - Integumentary Integumentary: As Per HPI - Neurological Neurological: As Per HPI - Psychiatric Psychiatric: As Per HPI - Endocrine Endocrine: As Per HPI - Hematologic/Lymphatic Hematologic: As Per HPI Past Patient History - Infectious Disease Hx of Infectious Diseases: None - Tetanus Immunizations Tetanus Immunization: Unknown - Past Medical History & Family History Past Medical History?: No - Past Social History Smoking Status: Former Smoker - CARDIAC Hx Cardiac Disorders: No Hx Hypertension: Yes (non complaint.) - PULMONARY Hx Tuberculosis: No - NEUROLOGICAL HX Cerebrovascular Accident: No Hx Seizures: Yes - HEENT Hx HEENT Problems: No - RENAL Hx Chronic Kidney Disease: Yes Hx Kidney Stones: Yes - ENDOCRINE/METABOLIC Hx Endocrine Disorders: No - HEMATOLOGICAL/ONCOLOGICAL Hx Cancer: No - INTEGUMENTARY Hx Dermatological Problems: Yes Other/Comment: red rash to ble, left knee bruise and abrasion, left arm abras ions, unkempt with dirty hands fingernails and toenails, tatoos. reddness buttocks - MUSCULOSKELETAL/RHEUMATOLOGICAL Hx Falls: No - GASTROINTESTINAL Hx Irritable Bowel: No - GENITOURINARY/GYNECOLOGICAL Hx Sexually Transmitted Disorders: No - PSYCHIATRIC Hx Psychophysiologic Disorder: Yes (HEROIN AND COCAINE ABUSE,SNIFFS IVDU,DRINKS ALCOHOL ON OCCASION,SMOKES CIGA) Hx Emotional Abuse: No Hx Physical Abuse: No Hx Substance Use: Yes - SURGICAL HISTORY Hx Musculoskeletal Surgery: Yes (carpal tunnel right) - ANESTHESIA Hx Anesthesia: Yes Hx Anesthesia Reactions: No Hx Malignant Hyperthermia: No Meds Allergies/Adverse Reactions: Allergies Allergy/AdvReac Type Severity Reaction Status Date / Time ibuprofen [From Motrin] Allergy RASH Verified 05/18/18 09:22 naproxen [From Aleve] Allergy ANAPHYLAXIS Verified 05/18/18 09:22 zolpidem [From Ambien] Allergy HEADACHE Verified 05/18/18 09:22 anti inflammatories Allergy Intermediate SWELLING Uncoded 05/18/18 09:22 Physical Exam - Constitutional Appears: Non-toxic, No Acute Distress - Head Exam Head Exam: ATRAUMATIC, NORMAL INSPECTION, NORMOCEPHALIC - Eye Exam Eye Exam: EOMI, Normal appearance, PERRL Pupil Exam: NORMAL ACCOMODATION - ENT Exam ENT Exam: Mucous Membranes Moist, Normal Exam - Neck Exam Neck exam: Positive for: Normal Inspection - Respiratory Exam Respiratory Exam: Clear to Auscultation Bilateral, NORMAL BREATHING PATTERN. ab sent: Decreased Breath Sounds, Rales, Rhonchi, Wheezes, Respiratory Distress, Stridor - Cardiovascular Exam Cardiovascular Exam: +S1, +S2. absent: Tachycardia, JVD, Systolic Murmur - GI/Abdominal Exam GI & Abdominal Exam: Normal Bowel Sounds, Soft. absent: Tenderness - Extremities Exam Extremities exam: Positive for: normal inspection - Back Exam Back exam: NORMAL INSPECTION - Neurological Exam Neurological exam: Alert, CN II-XII Intact, Normal Gait, Oriented x3 - Psychiatric Exam Psychiatric exam: Depressed - Skin Skin Exam: Dry, Normal Color, Warm Results - Vital Signs Recent Vital Signs: Last Vital Signs Temp 99.4 F 05/17/18 07:15 Pulse 71 05/17/18 12:37 Resp 20 05/17/18 07:15 BP 212/143 H 05/17/18 12:48 Pulse Ox 97 05/16/18 14:07 - Labs Result Diagrams: 05/16/18 11:00 05/16/18 11:00 Labs: Laboratory Results - last 24 hr 05/17/18 06:40 TSH 3rd Generation 0.10 L Assessment & Plan - Assessment and Plan (Free Text) Assessment: This is a 57-year-old PMH of depression, substance abuse (IV Heroin), Hypertension, COPD, and chronic non-compliance who presents to [facility] for suicide ideation and depression. Patient was admitted to Psychiatry unit. Patient is being treated for his psychiatric concerns and heroin withdrawal. Today patient was found to have blood pressure 212/143. Hypertension Urgency likely 2/2 to Uncontrolled Hypertension likely 2/2 Chronic non-compliance * BP 212/143 patient asymptomatic at this time (repeat BP: 198/120) * Administered: Catapres 0.1m PO, Loraz * Started: * Amlodipine 10mg PO daily * Losartan 100mg PO daily * Hydralazine 10mg IVP Q6 PRN (for systolic BP > 160) * Repeat BP * EKG ordered * TSH low * Ordered AM labs: Free T4, Lipid panel, HgbA1c, CMP, Mg, Phos * Echo 10/2017: LVEF 55%, left ventricle is normal size, normal left ventricular wall thickness, left ventricular function is normal, left ventricular ejection fraction is within the normal rang. normal LV segmental wall motion. arotic root is mildly to moderately enlarged. * Of note: Patient was recently admitted to 10/2017, BP was controlled with the following regimen: * Losartan 100mg PO daily, Norvasc 10mg PO daily, Hydralazine 50mg PO Q8H * Counselled patient on importance of medication compliance and risks associated with untreated HTN * Patient reports he is aware of the adverse side effects associated with uncontrolled blood pressure including stroke, VA, and History of COPD * Patient is not in acute exacerbation. * Start: Duoneb prn Polysubstance abuse * Management as per psych * Counselled patient on risks of drug, tobacco, and EtOH use and advised cessation * UDS: + opiates, +Benzodiazepines Suicidal Ideation * Management as per psych Discussed with Dr. Hans Thornton PGY1 <Gerardo Maxwell - Last Filed: 05/24/18 17:04> Results - Vital Signs Recent Vital Signs: Last Vital Signs Temp 98 F 05/24/18 06:15 Pulse 73 05/24/18 06:15 Resp 20 05/24/18 06:15 BP 125/86 05/24/18 06:15 Pulse Ox 97 05/16/18 14:07 - Labs Result Diagrams: 05/22/18 07:00 05/22/18 07:00 Labs: Laboratory Results - last 24 hr 05/20/18 12:14 Plasma Metanephrine 28 Plasma Normetanephrine 277 H Plas Total Metaneph 305 H Attending/Attestation - Attestation I have personally seen and examined this patient.: Yes I have fully participated in the care of the patient.: Yes I have reviewed all pertinent clinical information: Yes Notes (Text): 05/24/18 16:58 Medical record note made by the resident after discussion with my direction and input after the patient was personally seen and examined by me. I have reviewed the chart and agree that the record accurately reflects by personal performance of the history, physical exam, data review, and medical decision-making, in the course for the patient. I have also personally directed the plan of care. 57-year-old PMH of depression, substance abuse (IV Heroin), Hypertension, COPD, and chronic non-compliance who presents to [facility] for suicide ideation and depression. Patient was admitted to Psychiatry unit. Patient is being treated for his psychiatric concerns and heroin withdrawal. Blood pressure was high due to non compliance.Patient is asymptomatic, restarted Amlodipine 10 mg po daily, Losartan 100 mg po daily .We will monitor blood pressure and adjust medications. Management plan was discussed in detail with patient. Education was provided.
[2018-05-17] MEDS ORDERED: Albuterol-Ipratrop 3 mg / 0.5 (3 ml) UD IH PRN (14:29)
--- NOTE | 2018-05-17 15:10 | CARD ---
APPROVED REPORT Date of service: 05/17/2018 EKG Measurement Heart [id number] CT [id number] <Conclusion> Normal sinus rhythm Left axis deviation Incomplete right bundle branch block LVH by voltage
[2018-05-18 07:21] LABS: LDL CHOLESTEROL 97 mg/dL (0-129)
[2018-05-18 07:22] LABS: ALB/GLOB RATIO 1.2 (1.1-1.8); ALBUMIN 3.9 g/dL (3.0-4.8); ALT/SGPT 29 U/L (7-56); AST/SGOT 36 U/L (17-59); BLOOD UREA NITROGEN 15 mg/dL (7-21); CALCIUM 9.8 mg/dL (8.4-10.5); GFR NON-AFRICAN AMERICAN > 60; HDL CHOLESTEROL 45 mg/dL (29-60)
[2018-05-18] MEDS ORDERED: Potassium Chloride 20 mEq ER Tab PO STA (07:31)
[2018-05-18] MEDS ORDERED: Potassium & Sodium Phosphate PO ONE (08:00)
[2018-05-18] MEDS: Multivitamin With Minerals Tab PO SCH (10:39)
--- NOTE | 2018-05-18 11:27 | PCM.PYCHPN ---
Psychiatric Progress Note - Psychiatric Progress Note Patient seen today, length of contact: 30min Patient Chief Complaint: "I am just hanging in there" Problems Identified/Issues Discussed: Suicide/ homicide prevention, past psychiatric h/o, current psychiatric symptoms, medical problems, risk/benefits and alternatives of medications, medications compliance, coping strategies, substance abuse h/o, relapse prevention, importance of follow up with psychiatrist and therapist, discharge plan. Medical Problems: see HPI UA positive for corinebacterium Diagnostic Results: 05/16/18 11:00 05/18/18 06:40 Lab Results 05/18/18 06:40: Free T4 1.27 05/18/18 06:40: Sodium 138, Potassium 3.4 L, Chloride 103, Carbon Dioxide 29, Anion Gap 10, BUN 15, Creatinine 0.9, Est GFR ( Amer) > 60, Est GFR (Non- Af Amer) > 60, Random Glucose 123 H, Calcium 9.8, Phosphorus 2.1 L, Magnesium 2.0, Total Bilirubin 0.7, AST 36, ALT 29, Alkaline Phosphatase 79, Total Protein 7.1, Albumin 3.9, Globulin 3.2, Albumin/Globulin Ratio 1.2, Triglycerides 157, Cholesterol 167, LDL Cholesterol Direct 97, HDL Cholesterol 45 05/17/18 06:40: RPR Nonreactive 05/17/18 06:40: TSH 3rd Generation 0.10 L 05/16/18 11:18: Urine Opiates Screen Positive H, Urine Methadone Screen Negative, Ur Barbiturates Screen Negative, Ur Phencyclidine Scrn Negative, Ur Amphetamines Screen Negative, U Benzodiazepines Scrn Positive H, U Oth Cocaine Metabols Negative, U Cannabinoids Screen Negative 05/16/18 11:18: Urine Color Yellow, Urine Appearance Clear, Urine pH 6.0, Ur Specific [place] >= 1.030, Urine Protein 100 H, Urine Glucose (UA) Negative, Urine Ketones >=80, Urine Blood Trace-lysed H, Urine Nitrate Negative, Urine Bilirubin Moderate H, Urine Urobilinogen 0.2, Ur Leukocyte Esterase Negative, Urine RBC 0 - 2, Urine WBC 5 - 10, Ur Epithelial Cells 1 - 3, Urine Bacteria Trace, Urine Other Mucus 05/16/18 11:00: Alcohol, Quantitative < 10 05/16/18 11:00: Salicylates < 1 L, Acetaminophen < 10.0 L 05/16/18 11:00: Sodium 140, Potassium 4.0, Chloride 105, Carbon Dioxide 24, Anion Gap 15, BUN 15, Creatinine 0.9, Est GFR ( Amer) > 60, Est GFR (Non- Af Amer) > 60, Random Glucose 92, Calcium 9.1, Total Bilirubin 1.0, AST 56, ALT 31, Alkaline Phosphatase 80, Total Protein 6.9, Albumin 3.8, Globulin 3.1, Albumin/Globulin Ratio 1.2 05/16/18 11:00: WBC 7.7, RBC 5.11, Hgb 14.2, Hct 43.5, MCV 85.1, MCH 27.8, MCHC 32.6, RDW 15.2 H, Plt Count 192, MPV 10.3, Gran % 85.5 H, Lymph % (Auto) 10.8 L, [place] % (Auto) 3.2, Eos % (Auto) 0.1 L, Baso % (Auto) 0.3, Gran # 6.39, Lymph # (Auto) 0.8 L, [place] # (Auto) 0.2, Eos # (Auto) 0.0, Baso # (Auto) 0.02 Vital Signs Temp Pulse Resp BP Pulse Ox 05/18/18 09:35 157/135 H 05/18/18 08:11 163/105 H 05/18/18 07:00 62 163/105 H 05/18/18 06:48 98.1 F 62 20 163/105 H 05/17/18 20:07 64 154/97 H 05/17/18 17:33 66 168/93 H 05/17/18 16:00 66 168/93 H 05/17/18 13:15 66 188/117 H 05/17/18 13:00 66 198/120 H 05/17/18 12:48 212/143 H 05/17/18 12:37 71 212/143 H 05/17/18 07:15 99.4 F 70 20 198/123 H 05/16/18 16:38 86 159/98 H 05/16/18 14:07 98.0 F 82 18 97 05/16/18 13:56 81 18 159/98 H 97 05/16/18 11:34 98.3 F 74 18 161/109 H 95 DSM 5 Symptoms Update: shortly patient is 57-year-old male with a history of depression, opioid use disorder, h/o detoxes and rehabs, recent d/c from the [facility] 02/2018, pt has questionable compliance with meds and follow up appts, came to the hospital reporting depressed mood and possible suicidal ideation. As per ER report pt been increasingly feeling more and more depressed over the past month, states he recently got out of her long-term relationship. Patient has thoughts of suicide by overdose. as per RN report pt was guarded, was not forthcoming with information, but no agitation, no aggression. pt was seen today at the treatment team meeting room, presented to be depressed, pt c/o upset stomach and nasal congestion due to his opioid withdrawals. pt reported that he is able to hold the food, denied any severe pain "I know that I will start feeling better within couple of days". pt reported that he has some future oriented plans to go to the rehab and "try my best to stay sober". pt denied hearing voices or seeing things, pt denied being paranoid, but pt p resented to be guarded. pt c/o insomnia and mood swings, will increase seroquel. so far pt tolerated meds well, no side effects observed or reported. AIMS 0, no EPS. Impression: DSM 5 Diagnosis: major depressive d/o - recurrent, severe with no psychosis r/o substance induced psychosis Opioid withdrawal Opioid use d/o - severe Cocaine use d/o - moderate Tobacco use d/o - severe Sedative hypnotic use d/o severe, in sustained remission HTN Neuropathy Medication Change: Yes (seroquel increased) Medical Record Reviewed: Yes Consults ordered or reviewed: medical consult appreciated see notes for more detailed information Mental Status Examination - Cognitive Function Orientation: Person, Place, Situation Memory: Intact Attention: Poor Concentration: Poor Association: Loose Fund of Knowledge: Poor - Mood Mood: Depressed - Affect Affect: Constricted, Flat - Formal Thought Process Formal Thought Process: No Impairment - Suicidal Ideation Suicidal Ideation: No - Homicidal Ideation Homicidal Ideation: No Goal/Treatment Plan - Goal/Treatment Plan Need for Continued Stay: Remain at risks for inpatient hospitalization, Severe depression anxiety, Discharge may exacerbated symptoms, Severe functional impairment Progress Toward Problem(s) and Goals/Treatment Plan: Milieu/structure/supportive therapy Medical consult was called amLODIPine [Norvasc] 10 mg PO DAILY resumed by medical team Gabapentin [Neurontin] 300 mg PO TID resumed Mirtazapine [Remeron] 15 mg PO HS resumed for depression Pantoprazole [Protonix EC Tab] 20 mg PO DAILY resumed QUEtiapine [SEROquel] 100 mg PO HS for mood stabilization SW consultation for discharge plan and social issues Family involvement Follow up on labs Will monitor closely Pt was educated about risk/benefits and alternatives of medications, coping str ategies (safety plan, suicide prevention), relapse prevention, importance of follow up with psychiatrist and therapist, stay away from drugs/alcohol/smoking Estimated Date of D/C: 05/24/18
--- NOTE | 2018-05-18 13:16 | CP.PCM.PN ---
<Emre Thornton - Last Filed: 05/18/18 13:09> Subjective - Date & Time of Evaluation Date of Evaluation: 05/18/18 Time of Evaluation: 13:09 - Subjective Subjective: PGY1 Medicine Progress Note for Dr. Maxwell Patient was seen and evaluated at bedside this morning. Patient had no acute events overnight. Patient states he was able to sleep overnight without issue. Patient feels depressed. Patient able to have bowel movement. Patient otherwise denies headache, chest pain, shortness of breath, dizziness, abdominal pain, nausea, vomiting, numbness and/or tingling in lower extremities. Objective - Vital Signs/Intake and Output Vital Signs (last 24 hours): Temp Pulse Resp BP Pulse Ox 98.1 F 86 20 168/117 H 97 05/18/18 06:48 05/18/18 11:44 05/18/18 06:48 05/18/18 11:44 05/16/18 14:07 - Medications Medications: Current Medications Acetaminophen (Tylenol 325mg Tab) 650 mg PO Q4 PRN PRN Reason: Pain, Mild (1-3) Al Hydrox/Mg Hydrox/Simethicone (Maalox Plus 30 Ml) 30 ml PO DAILY PRN PRN Reason: Upset Stomach Albuterol/Ipratropium (Duoneb 3 Mg/0.5 Mg (3 Ml) Ud) 3 ml IH Q2H PRN PRN Reason: Shortness of Breath Amlodipine Besylate (Norvasc) 10 mg PO DAILY [facility] Last Admin: 05/18/18 09:35 Dose: 10 mg Clonidine HCl (Catapres) 0.1 mg PO BID PRN PRN Reason: Opiate reversal Last Admin: 05/18/18 11:44 Dose: 0.1 mg Diphenhydramine HCl (Benadryl) 50 mg PO Q8 PRN PRN Reason: Allergy symptoms Folic Acid (Folic Acid) 1 mg PO DAILY [facility] Last Admin: 05/18/18 10:39 Dose: 1 mg Gabapentin (Neurontin) 300 mg PO TID [facility]; Protocol Last Admin: 05/18/18 09:32 Dose: 300 mg Haloperidol (Haldol) 5 mg PO Q6 PRN; Protocol PRN Reason: Psychosis Hydralazine HCl (Apresoline) 10 mg IVP Q6 PRN PRN Reason: Systolic Blood Pressure Hydralazine HCl (Apresoline) 75 mg PO Q6H [facility] Last Admin: 05/18/18 08:11 Dose: Not Given Lorazepam (Ativan) 1 mg PO BID PRN; Protocol PRN Reason: Restlessness Last Admin: 05/18/18 09:39 Dose: 1 mg Losartan Potassium (Cozaar) 100 mg PO DAILY [facility] Last Admin: 05/18/18 09:37 Dose: 100 mg Magnesium Hydroxide (Milk Of Magnesia) 30 ml PO DAILY PRN PRN Reason: Constipation Mirtazapine (Remeron) 15 mg PO HS [facility] Last Admin: 05/17/18 21:09 Dose: 15 mg Multivitamins/Minerals (Therapeutic-M Tab) 1 tab PO DAILY [facility] Last Admin: 05/18/18 10:39 Dose: 1 tab Ondansetron HCl (Zofran Odt) 4 mg PO Q8H PRN PRN Reason: Nausea/Vomiting Last Admin: 05/18/18 06:25 Dose: 4 mg Quetiapine Fumarate (Seroquel) 100 mg PO [facility]; Protocol Thiamine HCl (Vitamin B1 Tab) 50 mg PO DAILY [facility] Last Admin: 05/18/18 10:38 Dose: 50 mg Tramadol HCl (Ultram) 50 mg PO TID PRN PRN Reason: severe pain - Labs Labs: 05/16/18 11:00 05/18/18 06:40 Assessment and Plan - Assessment and Plan (Free Text) Assessment: This is a 57-year-old PMH of depression, substance abuse (IV Heroin), Hypertension, COPD, and chronic non-compliance who presents to [facility] for suicide ideation and depression. Patient was admitted to Psychiatry unit. Patient is being treated for his psychiatric concerns and heroin withdrawal. On 05/17 patient was found to have blood pressure 212/143. Thus, the medicine team was consulted for management of hypertension urgency. Hypertension Urgency likely 2/2 to Uncontrolled Hypertension likely 2/2 Chronic non-compliance * BP 168/117 patient asymptomatic at this time (repeat BP: 198/120) * Recheck BP using appropriate sized cuff * Administered: Catapres 0.1m PO, [place] * Started: * Amlodipine 10mg PO daily * Losartan 100mg PO daily * Hydralazine increased: 75mg PO Q6H * Hydralazine 10mg IVP Q6 PRN (for systolic BP > 160) * Start: Clonidine 0.1 PO BID PRN * EKG 05/17: NSR, left axis deviation, incomplete right bundle branch block, LVH by voltage; see full report for detail * TSH low * Free T4=1.27 * Lipid panel unremarkable for hyperlipidemia * ZhwR0m=0.6 * Monitor CMP, Mg, Phos * Echo 10/2017: LVEF 55%, left ventricle is normal size, normal left ventricular wall thickness, left ventricular function is normal, left ventricular ejection fraction is within the normal rang. normal LV segmental wall motion. arotic r oot is mildly to moderately enlarged. * Of note: Patient was recently admitted to [facility] 10/2017, BP was controlled with the following regimen: * Counselled patient on importance of medication compliance and risks associated with untreated HTN * Patient reports he is aware of the adverse side effects associated with uncontrolled blood pressure including stroke, CA, and * History of COPD * Patient is not in acute exacerbation. * Duoneb prn Polysubstance abuse * Management as per psych * Counselled patient on risks of drug, tobacco, and EtOH use and advised cessation * UDS: + opiates, +Benzodiazepines Suicidal Ideation * Management as per psych Discussed with Dr. Hans Thornton PGY1 <Gerardo Maxwell - Last Filed: 05/24/18 17:07> Objective - Vital Signs/Intake and Output Vital Signs (last 24 hours): Temp Pulse Resp BP Pulse Ox 98 F 73 20 125/86 97 05/24/18 06:15 05/24/18 06:15 05/24/18 06:15 05/24/18 06:15 05/16/18 14:07 - Medications Medications: Current Medications Acetaminophen (Tylenol 325mg Tab) 650 mg PO Q4 PRN PRN Reason: Pain, Mild (1-3) Al Hydrox/Mg Hydrox/Simethicone (Maalox Plus 30 Ml) 30 ml PO DAILY PRN PRN Reason: Upset Stomach Last Admin: 05/21/18 15:53 Dose: 30 ml Albuterol/Ipratropium (Duoneb 3 Mg/0.5 Mg (3 Ml) Ud) 3 ml IH Q2H PRN PRN Reason: Shortness of Breath Diphenhydramine HCl (Benadryl) 50 mg PO Q8 PRN PRN Reason: Allergy symptoms Last Admin: 05/23/18 22:54 Dose: 50 mg Folic Acid (Folic Acid) 1 mg PO DAILY [facility] Last Admin: 05/24/18 09:12 Dose: 1 mg Gabapentin (Neurontin) 600 mg PO HS [facility]; Protocol Last Admin: 05/23/18 21:08 Dose: 600 mg Gabapentin (Neurontin) 300 mg PO BID [facility]; Protocol Haloperidol (Haldol) 5 mg PO Q6 PRN; Protocol PRN Reason: Psychosis Last Admin: 05/22/18 21:09 Dose: 5 mg Lorazepam (Ativan) 0.5 mg PO BID PRN; Protocol PRN Reason: Restlessness Magnesium Hydroxide (Milk Of Magnesia) 30 ml PO DAILY PRN PRN Reason: Constipation Mirtazapine (Remeron) 30 mg PO HS [facility] Last Admin: 05/23/18 21:08 Dose: 30 mg Multivitamins/Minerals (Therapeutic-M Tab) 1 tab PO DAILY [facility] Last Admin: 05/24/18 09:12 Dose: 1 tab Ondansetron HCl (Zofran Odt) 4 mg PO Q8H PRN PRN Reason: Nausea/Vomiting Last Admin: 05/18/18 06:25 Dose: 4 mg Quetiapine Fumarate (Seroquel) 150 mg PO HS [facility]; Protocol Last Admin: 05/23/18 21:08 Dose: 150 mg Thiamine HCl (Vitamin B1 Tab) 50 mg PO DAILY [facility] Last Admin: 05/24/18 09:12 Dose: 50 mg - Labs Labs: 05/22/18 07:00 05/22/18 07:00 Attending/Attestation - Attestation I have personally seen and examined this patient.: Yes I have fully participated in the care of the patient.: Yes I have reviewed all pertinent clinical information, including history, physical exam and plan: Yes Notes (Text): 05/24/18 17:06 Medical record note made by the resident after discussion with my direction and input after the patient was personally seen and examined by me. I have reviewed the chart and agree that the record accurately reflects by personal performance of the history, physical exam, data review, and medical decision-making, in the course for the patient. I have also personally directed the plan of care. Blood presuure is still running high, Continue Amlodipine 10 mg po daily, Losartan 100 mg po daily Will increase Hydralazine dose is increased to 75 tid today. We will monitor blood pressure and adjust medications.
[2018-05-19] MEDS: Multivitamin With Minerals Tab PO SCH (09:05)
--- NOTE | 2018-05-19 09:34 | PCM.PYCHPN ---
Psychiatric Progress Note - Psychiatric Progress Note Patient seen today, length of contact: 30min Problems Identified/Issues Discussed: I reviewed assessment and recent notes. Patient was interviewed at bedside. Grooming is a little unkempt however he remains oriented to month, year and location as well as circumstances. Patient reports that he "isn't doing so well". He has periods of nausea, aches and dizziness--unchanged since admission which he feels is secondary to opiate withdrawal. Sleep continues to be restless. Overall he is "feeling lousy". Patient's affect is constricted and tired. He doesn't appear to be psychotic and delusions were not elicited. He does admit to seeing fleeting shadows moving in corners but he is aware these aren't real or true objects. Patient remains depressed and improvement is slow on the unit. He has been guarded with staff but overall, in good control without any major behavioral issues thus far. Patient generally keeps to himself without much motivation to socialize yet. Diagnostic Results: major depressive d/o - recurrent, severe with no psychosis r/o substance induced psychosis Opioid withdrawal Opioid use d/o - severe Cocaine use d/o - moderate Tobacco use d/o - severe Sedative hypnotic use d/o severe, in sustained remission HTN Neuropathy Medication Change: Yes (clonidine increased) Medical Record Reviewed: Yes Mental Status Examination - Cognitive Function Orientation: Person, Place, Situation Memory: Intact Attention: Poor Concentration: Poor Association: Loose Fund of Knowledge: Poor - Mood Mood: Depressed - Affect Affect: Constricted, Flat - Formal Thought Process Formal Thought Process: No Impairment - Suicidal Ideation Suicidal Ideation: No - Homicidal Ideation Homicidal Ideation: No Goal/Treatment Plan - Goal/Treatment Plan Need for Continued Stay: Remain at risks for inpatient hospitalization, Severe depression anxiety, Discharge may exacerbated symptoms, Severe functional impai rment Progress Toward Problem(s) and Goals/Treatment Plan: * c/w current tx and plan * Appreciate Dr. Maxwell's f/u on 05/17/18 and 05/18/18 regarding patient's medical issues including uncontrolled HTN on the unit. Awaiting any new recommendations for today. c/w following medications * Neurontin 300 mg po TID * Ativan 1 mg po bid prn * Remeron 15 mg po HS * Seroquel 100 mg po HS * Vitals reviewed and noted below, clonidine increased to 0.1 mg po q8 for opiate withdrawal symptoms 05/18/18 05/18/18 05/18/18 06:48 07:00 08:11 Temperature 98.1 F Pulse Rate 62 62 Respiratory 20 Rate Blood Pressure 163/105 H 163/105 H 163/105 H 05/18/18 05/18/18 05/18/18 09:30 09:35 11:30 Temperature Pulse Rate 86 86 Respiratory Rate Blood Pressure 157/135 H 157/135 H 178/125 H 05/18/18 05/18/18 05/18/18 11:44 13:45 14:00 Temperature Pulse Rate 86 86 70 Respiratory Rate Blood Pressure 168/117 H 168/117 H 138/107 H 05/18/18 05/18/18 05/19/18 16:00 20:14 03:09 Temperature Pulse Rate 68 69 74 Respiratory Rate Blood Pressure 143/104 H 141/102 H 145/109 H * No new lab results thus far today. Estimated Date of D/C: 05/24/18
--- NOTE | 2018-05-19 12:43 | CP.PCM.PN ---
<Emre Thornton - Last Filed: 05/19/18 12:36> Subjective - Date & Time of Evaluation Date of Evaluation: 05/19/18 Time of Evaluation: 12:36 - Subjective Subjective: PGY1 Medicine Progress Note for Dr. Nirav Cadena Patient was seen and evaluated at bedside this morning. Patient had no acute events overnight. Patient states he was able to sleep overnight without issue. Patient feels depressed. Patient able to have bowel movement. Patient otherwise denies headache, chest pain, shortness of breath, dizziness, abdominal pain, nausea, vomiting, numbness and/or tingling in lower extremities. Objective - Vital Signs/Intake and Output Vital Signs (last 24 hours): Temp Pulse Resp BP Pulse Ox 98.8 F 74 20 164/121 H 97 05/19/18 07:17 05/19/18 09:18 05/19/18 07:17 05/19/18 09:18 05/16/18 14:07 - Medications Medications: Current Medications Acetaminophen (Tylenol 325mg Tab) 650 mg PO Q4 PRN PRN Reason: Pain, Mild (1-3) Al Hydrox/Mg Hydrox/Simethicone (Maalox Plus 30 Ml) 30 ml PO DAILY PRN PRN Reason: Upset Stomach Albuterol/Ipratropium (Duoneb 3 Mg/0.5 Mg (3 Ml) Ud) 3 ml IH Q2H PRN PRN Reason: Shortness of Breath Amlodipine Besylate (Norvasc) 10 mg PO DAILY [facility] Last Admin: 05/19/18 09:04 Dose: 10 mg Clonidine HCl (Catapres) 0.1 mg PO Q8 [facility] Diphenhydramine HCl (Benadryl) 50 mg PO Q8 PRN PRN Reason: Allergy symptoms Folic Acid (Folic Acid) 1 mg PO DAILY [facility] Last Admin: 05/19/18 09:03 Dose: 1 mg Gabapentin (Neurontin) 300 mg PO TID [facility]; Protocol Last Admin: 05/19/18 09:04 Dose: 300 mg Haloperidol (Haldol) 5 mg PO Q6 PRN; Protocol PRN Reason: Psychosis Hydralazine HCl (Apresoline) 10 mg IVP Q6 PRN PRN Reason: Systolic Blood Pressure Hydralazine HCl (Apresoline) 75 mg PO Q6H [facility] Last Admin: 05/19/18 09:18 Dose: 75 mg Hydrochlorothiazide (Hydrodiuril) 25 mg PO DAILY [facility] Lorazepam (Ativan) 1 mg PO BID PRN; Protocol PRN Reason: Restlessness Last Admin: 05/18/18 09:39 Dose: 1 mg Losartan Potassium (Cozaar) 100 mg PO DAILY [facility] Last Admin: 05/19/18 09:04 Dose: 100 mg Magnesium Hydroxide (Milk Of Magnesia) 30 ml PO DAILY PRN PRN Reason: Constipation Mirtazapine (Remeron) 15 mg PO HS [facility] Last Admin: 05/18/18 21:01 Dose: 15 mg Multivitamins/Minerals (Therapeutic-M Tab) 1 tab PO DAILY [facility] Last Admin: 05/19/18 09:05 Dose: 1 tab Ondansetron HCl (Zofran Odt) 4 mg PO Q8H PRN PRN Reason: Nausea/Vomiting Last Admin: 05/18/18 06:25 Dose: 4 mg Quetiapine Fumarate (Seroquel) 100 mg PO HS [facility]; Protocol Last Admin: 05/18/18 21:01 Dose: 100 mg Thiamine HCl (Vitamin B1 Tab) 50 mg PO DAILY [facility] Last Admin: 05/19/18 09:03 Dose: 50 mg Tramadol HCl (Ultram) 50 mg PO TID PRN PRN Reason: severe pain - Labs Labs: 05/16/18 11:00 05/18/18 06:40 - Additional Findings Additional findings: - Constitutional Appears: Non-toxic, No Acute Distress - Head Exam Head Exam: ATRAUMATIC, NORMAL INSPECTION, NORMOCEPHALIC - Eye Exam Eye Exam: EOMI, Normal appearance, PERRL Pupil Exam: NORMAL ACCOMODATION - ENT Exam ENT Exam: Mucous Membranes Moist, Normal Exam - Neck Exam Neck exam: Positive for: Normal Inspection - Respiratory Exam Respiratory Exam: Clear to Auscultation Bilateral, NORMAL BREATHING PATTERN. absent: Decreased Breath Sounds, Rales, Rhonchi, Wheezes, Respiratory Distress, Stridor - Cardiovascular Exam Cardiovascular Exam: +S1, +S2. absent: Tachycardia, JVD, Systolic Murmur - GI/Abdominal Exam GI & Abdominal Exam: Normal Bowel Sounds, Soft. absent: Tenderness - Extremities Exam Extremities exam: Positive for: normal inspection - Back Exam Back exam: NORMAL INSPECTION - Neurological Exam Neurological exam: Alert, CN II-XII Intact, Normal Gait, Oriented x3 - Psychiatric Exam Psychiatric exam: Depressed - Skin Skin Exam: Dry, Normal Color, Warm Assessment and Plan - Assessment and Plan (Free Text) Assessment: This is a 57-year-old PMH of depression, substance abuse (Heroin), Hypertension, COPD, and chronic non-compliance who presents to [facility] Emergency Department for suicide ideation and depression. Patient was admitted to Psychiatry unit. Patient currently being treated for his psychiatric concerns and heroin withdrawal. On 05/17, the patient was found to have blood pressure 212/143. Thus, the medicine team was consulted for management of hypertension urgency. Patient's hypertension improved on current therapy. Hypertension Urgency likely 2/2 to Uncontrolled Hypertension likely 2/2 Chronic non-compliance * BP 168/117 patient asymptomatic at this time (repeat BP: 198/120) * Manual BP rechecked using appropriate sized cuff: 152/110 * Medications: * Amlodipine 10mg PO daily * Losartan 100mg PO daily * Hydralazine increased: 75mg PO Q6H * Hydralazine 10mg IVP Q6 PRN (for systolic BP > 160) * Clonidine 0.1 PO BID [facility] * HCTZ 25mg PO daily * Nephrology (Dr. Saleh) consulted; recommendations appreciated * EKG 05/17: NSR, left axis deviation, incomplete right bundle branch block, LVH by voltage; see full report for detail * TSH low * Free T4=1.27 * Lipid panel unremarkable for hyperlipidemia * ZpaZ8s=8.6 * Monitor CMP, Mg, Phos * Echo 10/2017: LVEF 55%, left ventricle is normal size, normal left ventricular wall thickness, left ventricular function is normal, left ventricular ejection fraction is within the normal rang. normal LV segmental wall motion. arotic root is mildly to moderately enlarged. * Counselled patient on importance of medication compliance and risks associated with untreated HTN * Patient reports he is aware of the adverse side effects associated with uncontrolled blood pressure including stroke, ID, and History of COPD * Patient is not in acute exacerbation. * Continue duoneb prn Polysubstance abuse * Management as per psych * Counselled patient on risks of drug, tobacco, and EtOH use and advised cessation * UDS: + opiates, +Benzodiazepines Suicidal Ideation * Management as per psych Patient seen and case discussed in detail with Dr. Nirav Thornton PGY1 <Berta Gastelum R - Last Filed: 05/20/18 07:25> Objective - Vital Signs/Intake and Output Vital Signs (last 24 hours): Temp Pulse Resp BP Pulse Ox 98.0 F 98 H 20 158/104 H 97 05/20/18 07:04 05/20/18 07:04 05/20/18 07:04 05/20/18 07:04 05/16/18 14:07 - Medications Medications: Current Medications Acetaminophen (Tylenol 325mg Tab) 650 mg PO Q4 PRN PRN Reason: Pain, Mild (1-3) Al Hydrox/Mg Hydrox/Simethicone (Maalox Plus 30 Ml) 30 ml PO DAILY PRN PRN Reason: Upset Stomach Albuterol/Ipratropium (Duoneb 3 Mg/0.5 Mg (3 Ml) Ud) 3 ml IH Q2H PRN PRN Reason: Shortness of Breath Amlodipine Besylate (Norvasc) 10 mg PO DAILY [facility] Last Admin: 05/19/18 09:04 Dose: 10 mg Clonidine HCl (Catapres) 0.1 mg PO Q8 [facility] Last Admin: 05/19/18 21:49 Dose: 0.1 mg Diphenhydramine HCl (Benadryl) 50 mg PO Q8 PRN PRN Reason: Allergy symptoms Folic Acid (Folic Acid) 1 mg PO DAILY [facility] Last Admin: 05/19/18 09:03 Dose: 1 mg Gabapentin (Neurontin) 300 mg PO TID [facility]; Protocol Last Admin: 05/19/18 17:06 Dose: 300 mg Haloperidol (Haldol) 5 mg PO Q6 PRN; Protocol PRN Reason: Psychosis Hydralazine HCl (Apresoline) 10 mg IVP Q6 PRN PRN Reason: Systolic Blood Pressure Hydralazine HCl (Apresoline) 75 mg PO Q6H [facility] Last Admin: 05/20/18 02:11 Dose: 75 mg Hydrochlorothiazide (Hydrodiuril) 25 mg PO DAILY [facility] Lorazepam (Ativan) 1 mg PO BID PRN; Protocol PRN Reason: Restlessness Last Admin: 05/19/18 13:30 Dose: 1 mg Losartan Potassium (Cozaar) 100 mg PO DAILY [facility] Last Admin: 05/19/18 09:04 Dose: 100 mg Magnesium Hydroxide (Milk Of Magnesia) 30 ml PO DAILY PRN PRN Reason: Constipation Mirtazapine (Remeron) 15 mg PO HS [facility] Last Admin: 05/19/18 21:41 Dose: 15 mg Multivitamins/Minerals (Therapeutic-M Tab) 1 tab PO DAILY [facility] Last Admin: 05/19/18 09:05 Dose: 1 tab Ondansetron HCl (Zofran Odt) 4 mg PO Q8H PRN PRN Reason: Nausea/Vomiting Last Admin: 05/18/18 06:25 Dose: 4 mg Quetiapine Fumarate (Seroquel) 100 mg PO HS [facility]; Protocol Last Admin: 05/19/18 21:41 Dose: 100 mg Thiamine HCl (Vitamin B1 Tab) 50 mg PO DAILY [facility] Last Admin: 05/19/18 09:03 Dose: 50 mg Tramadol HCl (Ultram) 50 mg PO TID PRN PRN Reason: severe pain - Labs Labs: 05/16/18 11:00 05/18/18 06:40 Attending/Attestation - Attestation I have personally seen and examined this patient.: Yes I have fully participated in the care of the patient.: Yes I have reviewed all pertinent clinical information, including history, physical exam and plan: Yes Notes (Text): Patient seen and examined by me with resident at 11:05AM on 05/19/18. Case including HPI, physical exam, and assessment and plan discussed with resident. Agree with above with following additions/corrections. Patient is a 57 year old male with past medical history significant for depression, substance abuse, hypertension, COPD, and noncompliance that presented to [facility] with suicidal ideations and depression. Patient states that he is feeling ok. States that he feels tired and feels like he is not getting enough sleep. Patient denies any chest pain or shortness of breath. No headaches or dizziness. No change in vision. No fevers or chills. No nausea, vomiting, or abdominal pain. No dysuria. No diarrhea or constipation. Physical exam: General: Awake and alert lying in bed in no acute distress. HEENT: Normocephalic, atraumatic. Extraocular muscles intact, pupils equal and reactive, no scleral icterus. Oropharynx is pink and moist. Neck is supple. Cardiovascular: Normal rhythm. Normal S1 and S2. No murmurs, rubs, or gallops appreciated Pulmonary: Normal respiratory effort. No rhonchi, rales, or wheezing appreciated. Gastrointestinal: Soft, nondistended. Nontender. Positive bowel sounds all 4 quadrants. No guarding. Musculoskeletal: Moves all extremities. No calf tenderness. No edema appre ciated. Central nervous system: AAOx3 Dermatologic: Skin warm and dry. Assessment and plan: Patient is a 57 year old male with past medical history significant for depression, substance abuse, hypertension, COPD, and noncompliance that presented to [facility] with suicidal ideations and depression. 1. Uncontrolled hypertension. Patient non-compliant with medications. States he only takes them sometimes. Continue with norvasc 10mg PO daily. Continue with Clonidine 0.1mg PO BID. Continue with hydralazine 75mg PO q6hrs. Continue Cozaar 100mg PO daily. HCTZ added. Nephrology consulted. Patient counseled on importance of medication compliance. 2. COPD. Not in acute exacerbation. Continue nebulizer treatments as needed. 3. Polysubstance abuse. Counseled on cessation. Care as per primary team. 4. Depression. Suicidal ideation. Care as per primary team. Case was discussed in detail with patient regarding current diagnosis and treatment plan. All questions answered.
--- NOTE | 2018-05-19 19:13 | CP.PCM.CON ---
<Raheel Ruiz - Last Filed: 05/19/18 20:03> History of Present Illness - History of Present Illness History of Present Illness: Nephro Consult Note for Dr. Saleh Service This is a 57-year-old PMH of depression, substance abuse (IV Heroin), Hypertension, COPD, and chronic non-compliance who presented [place] [facility] for [place] ideation and depression, and was admitted to psych unit. Nephro c onsulted for resistant HTN. At time of exam today, reports depression, but no acute symptoms associated with elevated BP (pulsating headache, dizziness, vision changes, chest pain, etc). Poor knowledge of his own hx, unsure if ever had BP persistently elevated like this previously. Poor past followup and compliance likely 2/2 homelessness. 12-system ROS reviewed and negative except as above Medications reviewed in AUG PMH: as above PSH: right hand carpal tunnel surgery Fam Hx: pt unaware of fam hx Soc Hx: active tobacco user (cigarettes, unable to quantify), active illicits user (IV Heroin, snorts cocaine), social EtOH PMD: Dr. Franco Review of Systems - Review of Systems All systems: reviewed and no additional remarkable complaints except (as per subjective) Past Patient History - Infectious Disease Hx of Infectious Diseases: None - Tetanus Immunizations Tetanus Immunization: Unknown - Past Medical History & Family History Past Medical History?: No - Past Social History Smoking Status: Former Smoker - CARDIAC Hx Cardiac Disorders: No Hx Hypertension: Yes (non complaint.) - PULMONARY Hx Tuberculosis: No - NEUROLOGICAL HX Cerebrovascular Accident: No Hx Seizures: Yes - HEENT Hx HEENT Problems: No - RENAL Hx Chronic Kidney Disease: Yes Hx Kidney Stones: Yes - ENDOCRINE/METABOLIC Hx Endocrine Disorders: No - HEMATOLOGICAL/ONCOLOGICAL Hx Cancer: No - INTEGUMENTARY Hx Dermatological Problems: Yes Other/Comment: red rash to ble, left knee bruise and abrasion, left arm abrasions, unkempt with dirty hands fingernails and toenails, tatoos. reddness buttocks - MUSCULOSKELETAL/RHEUMATOLOGICAL Hx Falls: No - GASTROINTESTINAL Hx Irritable Bowel: No - GENITOURINARY/GYNECOLOGICAL Hx Sexually Transmitted Disorders: No - PSYCHIATRIC Hx Psychophysiologic Disorder: Yes (HEROIN AND COCAINE ABUSE,SNIFFS IVDU,DRINKS ALCOHOL ON OCCASION,SMOKES CIGA) Hx Emotional Abuse: No Hx Physical Abuse: No Hx Substance Use: Yes - SURGICAL HISTORY Hx Musculoskeletal Surgery: Yes (carpal tunnel right) - ANESTHESIA Hx Anesthesia: Yes Hx Anesthesia Reactions: No Hx Malignant Hyperthermia: No Meds Allergies/Adverse Reactions: Allergies Allergy/AdvReac Type Severity Reaction Status Date / Time ibuprofen [From Motrin] Allergy RASH Verified 05/18/18 09:22 naproxen [From Aleve] Allergy ANAPHYLAXIS Verified 05/18/18 09:22 zolpidem [From Ambien] Allergy HEADACHE Verified 05/18/18 09:22 anti inflammatories Allergy Intermediate SWELLING Uncoded 05/18/18 09:22 - Medications Medications: Current Medications Acetaminophen (Tylenol 325mg Tab) 650 mg PO Q4 PRN PRN Reason: Pain, Mild (1-3) Al Hydrox/Mg Hydrox/Simethicone (Maalox Plus 30 Ml) 30 ml PO DAILY PRN PRN Reason: Upset Stomach Albuterol/Ipratropium (Duoneb 3 Mg/0.5 Mg (3 Ml) Ud) 3 ml IH Q2H PRN PRN Reason: Shortness of Breath Amlodipine Besylate (Norvasc) 10 mg PO DAILY [facility] Last Admin: 05/19/18 09:04 Dose: 10 mg Clonidine HCl (Catapres) 0.1 mg PO Q8 [facility] Last Admin: 05/19/18 13:28 Dose: 0.1 mg Diphenhydramine HCl (Benadryl) 50 mg PO Q8 PRN PRN Reason: Allergy symptoms Folic Acid (Folic Acid) 1 mg PO DAILY [facility] Last Admin: 05/19/18 09:03 Dose: 1 mg Gabapentin (Neurontin) 300 mg PO TID [facility]; Protocol Last Admin: 05/19/18 17:06 Dose: 300 mg Haloperidol (Haldol) 5 mg PO Q6 PRN; Protocol PRN Reason: Psychosis Hydralazine HCl (Apresoline) 10 mg IVP Q6 PRN PRN Reason: Systolic Blood Pressure Hydralazine HCl (Apresoline) 75 mg PO Q6H [facility] Last Admin: 05/19/18 13:25 Dose: 75 mg Hydrochlorothiazide (Hydrodiuril) 25 mg PO DAILY [facility] Lorazepam (Ativan) 1 mg PO BID PRN; Protocol PRN Reason: Restlessness Last Admin: 05/19/18 13:30 Dose: 1 mg Losartan Potassium (Cozaar) 100 mg PO DAILY [facility] Last Admin: 05/19/18 09:04 Dose: 100 mg Magnesium Hydroxide (Milk Of Magnesia) 30 ml PO DAILY PRN PRN Reason: Constipation Mirtazapine (Remeron) 15 mg PO [facility] Last Admin: 05/18/18 21:01 Dose: 15 mg Multivitamins/Minerals (Therapeutic-M Tab) 1 tab PO DAILY [facility] Last Admin: 05/19/18 09:05 Dose: 1 tab Ondansetron HCl (Zofran Odt) 4 mg PO Q8H PRN PRN Reason: Nausea/Vomiting Last Admin: 05/18/18 06:25 Dose: 4 mg Quetiapine Fumarate (Seroquel) 100 mg PO HS [facility]; Protocol Last Admin: 05/18/18 21:01 Dose: 100 mg Thiamine HCl (Vitamin B1 Tab) 50 mg PO DAILY [facility] Last Admin: 05/19/18 09:03 Dose: 50 mg Tramadol HCl (Ultram) 50 mg PO TID PRN PRN Reason: severe pain Physical Exam - Additional Findings Additional findings: - Constitutional Appears: Non-toxic, No Acute Distress - Head Exam Head Exam: ATRAUMATIC, NORMAL INSPECTION, NORMOCEPHALIC - Eye Exam Eye Exam: EOMI, Normal appearance, No scleral icterus or conjuctival injection - ENT Exam ENT Exam: Mucous Membranes Moist, Normal Exam - Neck Exam Neck exam: Positive for: Normal Inspection - Respiratory Exam Respiratory Exam: Clear to Auscultation Bilateral, NORMAL BREATHING PATTERN. absent: Decreased Breath Sounds, Rales, Rhonchi, Wheezes, Respiratory Distress - Cardiovascular Exam Cardiovascular Exam: +S1, +S2, RRR. absent: Tachycardia, JVD, Systolic Murmur - GI/Abdominal Exam GI & Abdominal Exam: Normal Bowel Sounds, Soft. absent: Tenderness - Extremities Exam Extremities exam: Positive for: normal inspection, peripheral pulses present (+2 radials bilaterally) - Back Exam Back exam: No CVA tenderness bilaterally - Neurological Exam Neurological exam: Awake and alert, following all commands shortly, moving all extremities spontaneously, gait witnessed and is normal - Psychiatric Exam Psychiatric exam: Depressed, not overtly anxious or agitated - Skin Skin Exam: Dry, Normal Color, Warm Results - Vital Signs Recent Vital Signs: Last Vital Signs Temp 98.8 F 05/19/18 07:17 Pulse 82 05/19/18 16:00 Resp 20 05/19/18 07:17 BP 145/104 H 05/19/18 16:00 Pulse Ox 97 05/16/18 14:07 - Labs Result Diagrams: 05/16/18 11:00 05/18/18 06:40 Assessment & Plan - Assessment and Plan (Free Text) Assessment: This is a 57-year-old PMH of depression, substance abuse (IV Heroin), Hypertension, COPD, and chronic non-compliance who presented [place] [facility] for [place] ideation and depression, and was admitted to psych unit. Nephro consulted for resistant HTN. Plan: 1) Resistant HTN -non-compliance as component +/- withdrawal from heroin -rec increasing HCTZ to 25mg daily, Clonidine 0.1mg scheduled over prn (BID or TID) -prefer Clonidine and diuretics over hydralizine -continue Losartan 100mg Case reviewed and discussed with attending, Dr. Saleh <Jose Saleh - Last Filed: 05/19/18 20:29> Meds - Medications Medications: Current Medications Acetaminophen (Tylenol 325mg Tab) 650 mg PO Q4 PRN PRN Reason: Pain, Mild (1-3) Al Hydrox/Mg Hydrox/Simethicone (Maalox Plus 30 Ml) 30 ml PO DAILY PRN PRN Reason: Upset Stomach Albuterol/Ipratropium (Duoneb 3 Mg/0.5 Mg (3 Ml) Ud) 3 ml IH Q2H PRN PRN Reason: Shortness of Breath Amlodipine Besylate (Norvasc) 10 mg PO DAILY [facility] Last Admin: 05/19/18 09:04 Dose: 10 mg Clonidine HCl (Catapres) 0.1 mg PO Q8 [facility] Last Admin: 05/19/18 13:28 Dose: 0.1 mg Diphenhydramine HCl (Benadryl) 50 mg PO Q8 PRN PRN Reason: Allergy symptoms Folic Acid (Folic Acid) 1 mg PO DAILY [facility] Last Admin: 05/19/18 09:03 Dose: 1 mg Gabapentin (Neurontin) 300 mg PO TID [facility]; Protocol Last Admin: 05/19/18 17:06 Dose: 300 mg Haloperidol (Haldol) 5 mg PO Q6 PRN; Protocol PRN Reason: Psychosis Hydralazine HCl (Apresoline) 10 mg IVP Q6 PRN PRN Reason: Systolic Blood Pressure Hydralazine HCl (Apresoline) 75 mg PO Q6H [facility] Last Admin: 05/19/18 13:25 Dose: 75 mg Hydrochlorothiazide (Hydrodiuril) 25 mg PO DAILY [facility] Lorazepam (Ativan) 1 mg PO BID PRN; Protocol PRN Reason: Restlessness Last Admin: 05/19/18 13:30 Dose: 1 mg Losartan Potassium (Cozaar) 100 mg PO DAILY [facility] Last Admin: 05/19/18 09:04 Dose: 100 mg Magnesium Hydroxide (Milk Of Magnesia) 30 ml PO DAILY PRN PRN Reason: Constipation Mirtazapine (Remeron) 15 mg PO HS [facility] Last Admin: 05/18/18 21:01 Dose: 15 mg Multivitamins/Minerals (Therapeutic-M Tab) 1 tab PO DAILY [facility] Last Admin: 05/19/18 09:05 Dose: 1 tab Ondansetron HCl (Zofran Odt) 4 mg PO Q8H PRN PRN Reason: Nausea/Vomiting Last Admin: 05/18/18 06:25 Dose: 4 mg Quetiapine Fumarate (Seroquel) 100 mg PO HS [facility]; Protocol Last Admin: 05/18/18 21:01 Dose: 100 mg Thiamine HCl (Vitamin B1 Tab) 50 mg PO DAILY [facility] Last Admin: 05/19/18 09:03 Dose: 50 mg Tramadol HCl (Ultram) 50 mg PO TID PRN PRN Reason: severe pain Results - Vital Signs Recent Vital Signs: Last Vital Signs Temp 98.8 F 05/19/18 07:17 Pulse 82 05/19/18 16:00 Resp 20 05/19/18 07:17 BP 145/104 H 05/19/18 16:00 Pulse Ox 97 05/16/18 14:07 - Labs Result Diagrams: 05/16/18 11:00 05/18/18 06:40 Assessment & Plan - Assessment and Plan (Free Text) Plan: Pt seen and examined. I have reviewed the note of the medical equipment repair technician and agree with it. I have discussed the assessment and plan with the resident. I have reviewed the patient's labs and medications. Pt with HTN uncontrolled. Pt will have his HCTZ increased. Will place on Clonidine scheduled 0.1 mg bid. Continue with Losartan.
--- NOTE | 2018-05-20 08:55 | PCM.PYCHPN ---
Psychiatric Progress Note - Psychiatric Progress Note Patient seen today, length of contact: 30min Problems Identified/Issues Discussed: I reviewed recent notes. Patient was interviewed at bedside. Grooming is a little unkempt however he remains oriented to month, year and location as well as circumstances. Patient reports that he still "isn't doing so well". He has periods of body aches, fatigue and nausea, --a little improved since admission. Sleep continues to be restless though staff notes that patient is deeply sleeping at night. Overall he still "feels lousy". Patient's affect is constricted and tired. He doesn't appear to be psychotic and delusions were not elicited. He denies any perceptual disturbance at this time. Patient remains depressed and improvement is slow on the unit. He has been guarded with staff but overall, in good control without any major behavioral issues thus far. Patient generally keeps to himself without much motivation to socialize yet. Staff note that he stays in bed a lot during the day and night. Diagnostic Results: major depressive d/o - recurrent, severe with no psychosis r/o substance induced psychosis Opioid withdrawal Opioid use d/o - severe Cocaine use d/o - moderate Tobacco use d/o - severe Sedative hypnotic use d/o severe, in sustained remission HTN Neuropathy Medication Change: No (neurontin dosing schedule changed) Medical Record Reviewed: Yes Mental Status Examination - Cognitive Function Orientation: Person, Place, Situation Memory: Intact Attention: Poor Concentration: Poor Association: Loose Fund of Knowledge: Poor - Mood Mood: Depressed - Affect Affect: Constricted, Flat - Formal Thought Process Formal Thought Process: No Impairment - Suicidal Ideation Suicidal Ideation: No - Homicidal Ideation Homicidal Ideation: No Goal/Treatment Plan - Goal/Treatment Plan Need for Continued Stay: Remain at risks for inpatient hospitalization, Severe depression anxiety, Discharge may exacerbated symptoms, Severe functional impairment Progress Toward Problem(s) and Goals/Treatment Plan: * c/w current tx and plan * Appreciate Dr. Thornton/Nirav's f/u on 05/19/18 * Appreciate Dr. Ruiz/Dr. Saleh's f/u on 05/19/18~HCTZ increased to 25 mg po daily * Appreciate Dr. Maxwell's f/u on 05/17/18 and 05/18/18 regarding patient's medical issues including uncontrolled HTN on the unit. c/w following medications * Neurontin 300 mg AM and 600 mg HS (neurontin dosing schedule changed on 05/20/18 from 300 TID to 300/600 to help with daytime sedation and restless sleep) * Ativan 1 mg po bid prn * Remeron 15 mg po HS * Seroquel 100 mg po HS * Vitals reviewed and noted below, clonidine increased to 0.1 mg po q8 on 05/19/18 for opiate withdrawal symptoms Selected Entries 05/19/18 05/19/18 05/19/18 07:17 09:04 09:18 Temperature 98.8 F Pulse Rate 74 74 Respiratory 20 Rate Blood Pressure 164/121 H 164/121 H 164/121 H 05/19/18 05/19/18 05/19/18 13:25 13:28 16:00 Temperature Pulse Rate 78 78 82 Respiratory Rate Blood Pressure 158/100 H 158/100 H 145/104 H 05/19/18 05/19/18 05/20/18 21:49 22:07 02:11 Temperature Pulse Rate 75 72 Respiratory Rate Blood Pressure 159/118 H 150/109 H 135/79 * No new lab results thus far today. Estimated Date of D/C: 05/24/18
[2018-05-20] MEDS: Multivitamin With Minerals Tab PO SCH (08:56)
[2018-05-20 12:48] LABS: ALB/GLOB RATIO 1.3 (1.1-1.8); ALBUMIN 4.8 g/dL (3.0-4.8); ALT/SGPT 33 U/L (7-56); AST/SGOT 32 U/L (17-59); BLOOD UREA NITROGEN 23 mg/dL (7-21); CALCIUM 11.2 mg/dL (8.4-10.5); GFR NON-AFRICAN AMERICAN > 60
--- NOTE | 2018-05-20 14:03 | CP.PCM.PN ---
<Emre Thornton - Last Filed: 05/20/18 13:59> Subjective - Date & Time of Evaluation Date of Evaluation: 05/20/18 Time of Evaluation: 13:59 - Subjective Subjective: PGY1 Medicine Progress Note for Dr. Nirav Cadena Patient was seen and evaluated at bedside this morning. Patient had no acute tient otherwiseevents overnight. Patient states he was able to sleep overnight without issue. Patient admits to fatigue. Patient able to have bowel movement. Patient otherwise denies chest pain, shortness of breath, dizziness, abdominal pain, nausea, vomiting, numbness and/or tingling in lower extremities. Objective - Vital Signs/Intake and Output Vital Signs (last 24 hours): Temp Pulse Resp BP Pulse Ox 98.0 F 98 H 20 142/99 H 97 05/20/18 07:04 05/20/18 07:04 05/20/18 07:04 05/20/18 09:01 05/16/18 14:07 - Medications Medications: Current Medications Acetaminophen (Tylenol 325mg Tab) 650 mg PO Q4 PRN PRN Reason: Pain, Mild (1-3) Al Hydrox/Mg Hydrox/Simethicone (Maalox Plus 30 Ml) 30 ml PO DAILY PRN PRN Reason: Upset Stomach Albuterol/Ipratropium (Duoneb 3 Mg/0.5 Mg (3 Ml) Ud) 3 ml IH Q2H PRN PRN Reason: Shortness of Breath Amlodipine Besylate (Norvasc) 10 mg PO DAILY [facility] Last Admin: 05/20/18 08:56 Dose: 10 mg Clonidine HCl (Catapres) 0.1 mg PO Q8 [facility] Last Admin: 05/19/18 21:49 Dose: 0.1 mg Diphenhydramine HCl (Benadryl) 50 mg PO Q8 PRN PRN Reason: Allergy symptoms Folic Acid (Folic Acid) 1 mg PO DAILY [facility] Last Admin: 05/20/18 08:56 Dose: 1 mg Gabapentin (Neurontin) 300 mg PO QAM [facility]; Protocol Gabapentin (Neurontin) 600 mg PO HS [facility]; Protocol Haloperidol (Haldol) 5 mg PO Q6 PRN; Protocol PRN Reason: Psychosis Hydralazine HCl (Apresoline) 10 mg IVP Q6 PRN PRN Reason: Systolic Blood Pressure Hydralazine HCl (Apresoline) 75 mg PO Q6H [facility] Last Admin: 05/20/18 09:01 Dose: 75 mg Hydrochlorothiazide (Hydrodiuril) 25 mg PO DAILY [facility] Last Admin: 05/20/18 08:56 Dose: 25 mg Lorazepam (Ativan) 1 mg PO BID PRN; Protocol PRN Reason: Restlessness Last Admin: 05/19/18 13:30 Dose: 1 mg Losartan Potassium (Cozaar) 100 mg PO DAILY [facility] Last Admin: 05/20/18 08:56 Dose: 100 mg Magnesium Hydroxide (Milk Of Magnesia) 30 ml PO DAILY PRN PRN Reason: Constipation Mirtazapine (Remeron) 15 mg PO [facility] Last Admin: 05/19/18 21:41 Dose: 15 mg Multivitamins/Minerals (Therapeutic-M Tab) 1 tab PO DAILY [facility] Last Admin: 05/20/18 08:56 Dose: 1 tab Ondansetron HCl (Zofran Odt) 4 mg PO Q8H PRN PRN Reason: Nausea/Vomiting Last Admin: 05/18/18 06:25 Dose: 4 mg Quetiapine Fumarate (Seroquel) 100 mg PO [facility]; Protocol Last Admin: 05/19/18 21:41 Dose: 100 mg Thiamine HCl (Vitamin B1 Tab) 50 mg PO DAILY [facility] Last Admin: 05/20/18 08:56 Dose: 50 mg Tramadol HCl (Ultram) 50 mg PO TID PRN PRN Reason: severe pain - Labs Labs: 05/16/18 11:00 05/20/18 12:14 - Skin Additional comments: - Constitutional Appears: Non-toxic, No Acute Distress - Head Exam Head Exam: ATRAUMATIC, NORMAL INSPECTION, NORMOCEPHALIC - Eye Exam Eye Exam: EOMI, Normal appearance, PERRL Pupil Exam: NORMAL ACCOMODATION - ENT Exam ENT Exam: Mucous Membranes Moist, Normal Exam - Neck Exam Neck exam: Positive for: Normal Inspection - Respiratory Exam Respiratory Exam: Clear to Auscultation Bilateral, NORMAL BREATHING PATTERN. absent: Decreased Breath Sounds, Rales, Rhonchi, Wheezes, Respiratory Distress, Stridor - Cardiovascular Exam Cardiovascular Exam: +S1, +S2. absent: Tachycardia, JVD, Systolic Murmur - GI/Abdominal Exam GI & Abdominal Exam: Normal Bowel Sounds, Soft. absent: Tenderness - Extremities Exam Extremities exam: Positive for: normal inspection - Back Exam Back exam: NORMAL INSPECTION - Neurological Exam Neurological exam: Alert, CN II-XII Intact, Normal Gait, Oriented x3 - Psychiatric Exam Psychiatric exam: Depressed - Skin Skin Exam: Dry, Normal Color, Warm Assessment and Plan - Assessment and Plan (Free Text) Assessment: This is a 57-year-old PMH of depression, substance abuse (Heroin), Hypertension, COPD, and chronic non-compliance who presents to [facility] Emergency Department for suicide ideation and depression. Patient was admitted to Psychiatry unit. Patient currently being treated for his psychiatric concerns and heroin withdrawal. On 05/17, the patient was found to have blood pressure 212/143. Thus, the medicine team was consulted for management of hypertension urgency. Patient's hypertension improved but not optimized on current therapy. Furnishings Conservator on case (Dr. Saleh). Hypertension Urgency likely 2/2 to Uncontrolled Hypertension likely 2/2 Chronic non-compliance * BP 168/117 patient asymptomatic at this time (repeat BP: 198/120) * BP rechecked using appropriate sized cuff: 142/99 * Medications: * Amlodipine 10mg PO daily * Losartan 100mg PO daily * Hydralazine increased: 75mg PO Q6H * Hydralazine 10mg IVP Q6 PRN (for systolic BP > 160) * Clonidine increased in frequency: 0.1mg PO Q8H [facility] * HCTZ 25mg PO daily * Nephrology (Dr. Saleh) consulted; recommendations appreciated * EKG 05/17: NSR, left axis deviation, incomplete right bundle branch block, LVH by voltage; see full report for detail * TSH low * Free T4=1.27 * Lipid panel unremarkable for hyperlipidemia * RosS8y=5.6 * Monitor CMP, Mg, Phos * Echo 10/2017: LVEF 55%, left ventricle is normal size, normal left ventricular wall thickness, left ventricular function is normal, left ventricular ejection fraction is within the normal rang. normal LV segmental wall motion. arotic root is mildly to moderately enlarged. * Counselled patient on importance of medication compliance and risks associated with untreated HTN * Patient reports he is aware of the adverse side effects associated with uncontrolled blood pressure including stroke, AR, and History of COPD * Patient is not in acute exacerbation. * Continue duoneb prn Polysubstance abuse * Management as per psych * Counselled patient on risks of drug, tobacco, and EtOH use and advised cessation * UDS: + opiates, +Benzodiazepines Suicidal Ideation * Management as per psych Patient seen and case discussed in detail with Dr. Nirav Thornton PGY1 <Berta Gastelum R - Last Filed: 05/21/18 14:29> Objective - Vital Signs/Intake and Output Vital Signs (last 24 hours): Temp Pulse Resp BP Pulse Ox 98.6 F 121 H 20 146/101 H 97 05/21/18 07:33 05/21/18 08:09 05/21/18 07:33 05/21/18 08:09 05/16/18 14:07 - Medications Medications: Current Medications Acetaminophen (Tylenol 325mg Tab) 650 mg PO Q4 PRN PRN Reason: Pain, Mild (1-3) Al Hydrox/Mg Hydrox/Simethicone (Maalox Plus 30 Ml) 30 ml PO DAILY PRN PRN Reason: Upset Stomach Albuterol/Ipratropium (Duoneb 3 Mg/0.5 Mg (3 Ml) Ud) 3 ml IH Q2H PRN PRN Reason: Shortness of Breath Amlodipine Besylate (Norvasc) 10 mg PO DAILY [facility] Last Admin: 05/21/18 08:08 Dose: 10 mg Clonidine HCl (Catapres) 0.1 mg PO Q12H [facility] Stop: 05/21/18 22:00 Clonidine HCl (Catapres) 0.1 mg PO DAILY [facility] Diphenhydramine HCl (Benadryl) 50 mg PO Q8 PRN PRN Reason: Allergy symptoms Last Admin: 05/20/18 20:23 Dose: 50 mg Folic Acid (Folic Acid) 1 mg PO DAILY [facility] Last Admin: 05/21/18 08:09 Dose: 1 mg Gabapentin (Neurontin) 300 mg PO QAM [facility]; Protocol Last Admin: 05/21/18 10:01 Dose: 300 mg Gabapentin (Neurontin) 600 mg PO HS [facility]; Protocol Last Admin: 05/20/18 21:30 Dose: 600 mg Haloperidol (Haldol) 5 mg PO Q6 PRN; Protocol PRN Reason: Psychosis Last Admin: 05/20/18 20:23 Dose: 5 mg Hydralazine HCl (Apresoline) 10 mg IVP Q6 PRN PRN Reason: Systolic Blood Pressure Hydralazine HCl (Apresoline) 100 mg PO Q12H [facility] Last Admin: 05/21/18 10:05 Dose: 100 mg Hydrochlorothiazide (Hydrodiuril) 25 mg PO DAILY [facility] Last Admin: 05/21/18 08:09 Dose: 25 mg Lorazepam (Ativan) 1 mg PO BID PRN; Protocol PRN Reason: Restlessness Last Admin: 05/20/18 20:24 Dose: 1 mg Losartan Potassium (Cozaar) 100 mg PO DAILY [facility] Last Admin: 05/21/18 08:09 Dose: 100 mg Magnesium Hydroxide (Milk Of Magnesia) 30 ml PO DAILY PRN PRN Reason: Constipation Mirtazapine (Remeron) 15 mg PO HS [facility] Last Admin: 05/20/18 21:31 Dose: 15 mg Multivitamins/Minerals (Therapeutic-M Tab) 1 tab PO DAILY [facility] Last Admin: 05/21/18 08:09 Dose: 1 tab Ondansetron HCl (Zofran Odt) 4 mg PO Q8H PRN PRN Reason: Nausea/Vomiting Last Admin: 05/18/18 06:25 Dose: 4 mg Quetiapine Fumarate (Seroquel) 100 mg PO HS [facility]; Protocol Last Admin: 05/20/18 21:30 Dose: 100 mg Thiamine HCl (Vitamin B1 Tab) 50 mg PO DAILY [facility] Last Admin: 05/21/18 08:09 Dose: 50 mg Tramadol HCl (Ultram) 50 mg PO TID PRN PRN Reason: severe pain - Labs Labs: 05/16/18 11:00 05/20/18 12:14 Attending/Attestation - Attestation I have personally seen and examined this patient.: Yes I have fully participated in the care of the patient.: Yes I have reviewed all pertinent clinical information, including history, physical exam and plan: Yes Notes (Text): Patient seen and examined by me with resident at 10AM on 05/20/18. Case including HPI, physical exam, and assessment and plan discussed with resident. Agree with above with following additions/corrections. Patient is a 57 year old male with past medical history significant for depression, substance abuse, hypertension, COPD, and noncompliance that presented to [facility] with suicidal ideations and depression. Patient states that he is not feeling that great. States he's upset that his blood pressure is not controlled. He denies chest pain or shortness of breath. No headaches or dizziness. No change in vision. No fevers or chills. No nausea, vomiting, or abdominal pain. No dysuria. No diarrhea or constipation. Physical exam: General: Awake and alert lying in bed in no acute distress. HEENT: Normocephalic, atraumatic. Extraocular muscles intact, pupils equal and reactive, no scleral icterus. Oropharynx is pink and moist. Neck is supple. Cardiovascular: Normal rhythm. Normal S1 and S2. No murmurs, rubs, or gallops appreciated Pulmonary: Normal respiratory effort. No rhonchi, rales, or wheezing appreciated. Gastrointestinal: Soft, nondistended. Nontender. Positive bowel sounds all 4 quadrants. No guarding. Musculoskeletal: Moves all extremities. No calf tenderness. No edema appreciated. Central nervous system: AAOx3 Dermatologic: Skin warm and dry. Assessment and plan: Patient is a 57 year old male with past medical history significant for depression, substance abuse, hypertension, COPD, and noncompliance that presented to [facility] with suicidal ideations and depression. 1. Uncontrolled hypertension. Patient non-compliant with medications. Continue norvasc 10mg PO daily, Clonidine 0.1mg PO q8h, hydralazine 75mg PO q6hrs, Cozaar 100mg PO daily, and HCTZ 25mg PO daily. Nephrology following, recommendations appreciated. Patient counseled on importance of medication compliance. 2. COPD. Not in acute exacerbation. Continue nebulizer treatments as needed. 3. Polysubstance abuse. Counseled on cessation. Care as per primary team. 4. Depression. Suicidal ideation. Care as per primary team. 5. Abnormal urine culture. Patient asymptomatic. Urine culture positive for corynebacterium Likely contaminant. Case was discussed in detail with patient regarding current diagnosis and treatment plan. All questions answered.
--- NOTE | 2018-05-20 22:08 | CP.PCM.PN ---
Subjective - Date & Time of Evaluation Date of Evaluation: 05/20/18 Time of Evaluation: 19:00 - Subjective Subjective: 57 yo homeless M w/ pmh of depression, substance abuse, htn, copd, admitted to psych, nephro consulted for uncontrolled htn; Patient tolerating diet well; expresses his concern that he needs a place to keep his meds, needs stable place to stay; Objective - Vital Signs/Intake and Output Vital Signs (last 24 hours): Temp Pulse Resp BP Pulse Ox 98.0 F 84 20 114/80 97 05/20/18 07:04 05/20/18 16:00 05/20/18 07:04 05/20/18 16:00 05/16/18 14:07 - Medications Medications: Current Medications Acetaminophen (Tylenol 325mg Tab) 650 mg PO Q4 PRN PRN Reason: Pain, Mild (1-3) Al Hydrox/Mg Hydrox/Simethicone (Maalox Plus 30 Ml) 30 ml PO DAILY PRN PRN Reason: Upset Stomach Albuterol/Ipratropium (Duoneb 3 Mg/0.5 Mg (3 Ml) Ud) 3 ml IH Q2H PRN PRN Reason: Shortness of Breath Amlodipine Besylate (Norvasc) 10 mg PO DAILY [facility] Last Admin: 05/20/18 08:56 Dose: 10 mg Clonidine HCl (Catapres) 0.1 mg PO Q8 [facility] Last Admin: 05/20/18 14:02 Dose: 0.1 mg Diphenhydramine HCl (Benadryl) 50 mg PO Q8 PRN PRN Reason: Allergy symptoms Last Admin: 05/20/18 20:23 Dose: 50 mg Folic Acid (Folic Acid) 1 mg PO DAILY [facility] Last Admin: 05/20/18 08:56 Dose: 1 mg Gabapentin (Neurontin) 300 mg PO QAM [facility]; Protocol Last Admin: 05/20/18 13:59 Dose: 300 mg Gabapentin (Neurontin) 600 mg PO HS [facility]; Protocol Last Admin: 05/20/18 21:30 Dose: 600 mg Haloperidol (Haldol) 5 mg PO Q6 PRN; Protocol PRN Reason: Psychosis Last Admin: 05/20/18 20:23 Dose: 5 mg Hydralazine HCl (Apresoline) 10 mg IVP Q6 PRN PRN Reason: Systolic Blood Pressure Hydralazine HCl (Apresoline) 75 mg PO Q6H [facility] Last Admin: 05/20/18 14:04 Dose: 75 mg Hydrochlorothiazide (Hydrodiuril) 25 mg PO DAILY [facility] Last Admin: 05/20/18 08:56 Dose: 25 mg Lorazepam (Ativan) 1 mg PO BID PRN; Protocol PRN Reason: Restlessness Last Admin: 05/20/18 20:24 Dose: 1 mg Losartan Potassium (Cozaar) 100 mg PO DAILY [facility] Last Admin: 05/20/18 08:56 Dose: 100 mg Magnesium Hydroxide (Milk Of Magnesia) 30 ml PO DAILY PRN PRN Reason: Constipation Mirtazapine (Remeron) 15 mg PO [facility] Last Admin: 05/20/18 21:31 Dose: 15 mg Multivitamins/Minerals (Therapeutic-M Tab) 1 tab PO DAILY [facility] Last Admin: 05/20/18 08:56 Dose: 1 tab Ondansetron HCl (Zofran Odt) 4 mg PO Q8H PRN PRN Reason: Nausea/Vomiting Last Admin: 05/18/18 06:25 Dose: 4 mg Quetiapine Fumarate (Seroquel) 100 mg PO [facility]; Protocol Last Admin: 05/20/18 21:30 Dose: 100 mg Thiamine HCl (Vitamin B1 Tab) 50 mg PO DAILY [facility] Last Admin: 05/20/18 08:56 Dose: 50 mg Tramadol HCl (Ultram) 50 mg PO TID PRN PRN Reason: severe pain - Labs Labs: 05/16/18 11:00 05/20/18 12:14 - Constitutional Appears: Non-toxic, No Acute Distress - Eye Exam Eye Exam: Normal appearance - ENT Exam ENT Exam: Mucous Membranes Moist - Respiratory Exam Respiratory Exam: Clear to Ausculation Bilateral. absent: Respiratory Distress - Cardiovascular Exam Cardiovascular Exam: RRR, +S1, +S2 - GI/Abdominal Exam GI & Abdominal Exam: Soft. absent: Distended, Tenderness - Extremities Exam Additional comments: no leg edema; - Neurological Exam Neurological Exam: Alert, Awake - Psychiatric Exam Psychiatric exam: Normal Mood. absent: Agitated - Skin Skin Exam: Warm. absent: Cyanosis Assessment and Plan (1) Hypertensive urgency Assessment & Plan: BP better controlled after stepping up meds; however, concern that patient realistically cannot be taking meds 3 times per day; -will decrease clonidine and hydralazine (100 mg) to twice daily dosing; if further meds required, can consider cardura; -continue rest of meds; -obtaining workup for secondary causes; Status: Suspected
[2018-05-21] MEDS: Multivitamin With Minerals Tab PO SCH (08:09)
--- NOTE | 2018-05-21 10:41 | PCM.PYCHPN ---
Psychiatric Progress Note - Psychiatric Progress Note Patient seen today, length of contact: 30min Problems Identified/Issues Discussed: I reviewed recent notes and patient was interviewed at bedside again. Grooming is a little unkempt however he remains oriented to month, year and location as well as circumstances. Patient reports that he still "isn't doing so well", generally feels depressed, achy, stressed and overwhelmed. Sleep was a little improved last night. Patient's affect remains constricted. He is a little more alert and verbal today though still poorly motivated for treatment, per staff notes. He doesn't appear to be psychotic and delusions were not elicited. He denies any perceptual disturbance at this time. Patient remains depressed and improvement is slow on the unit. He has been guarded with staff but overall, in good control without any major behavioral issues thus far. Patient generally keeps to himself and doesn't attend groups even with staff prompting. Patient still stays in his room most of the time escept for meals. Diagnostic Results: major depressive d/o - recurrent, severe with no psychosis r/o substance induced psychosis Opioid withdrawal Opioid use d/o - severe Cocaine use d/o - moderate Tobacco use d/o - severe Sedative hypnotic use d/o severe, in sustained remission HTN Neuropathy Medication Change: No ( ) Medical Record Reviewed: Yes Mental Status Examination - Cognitive Function Orientation: Person, Place, Situation Memory: Intact Attention: Poor Concentration: Poor Association: Loose Fund of Knowledge: Poor - Mood Mood: Depressed - Affect Affect: Constricted, Flat - Formal Thought Process Formal Thought Process: No Impairment - Suicidal Ideation Suicidal Ideation: No - Homicidal Ideation Homicidal Ideation: No Goal/Treatment Plan - Goal/Treatment Plan Need for Continued Stay: Remain at risks for inpatient hospitalization, Severe depression anxiety, Discharge may exacerbated symptoms, Severe functional impairment Progress Toward Problem(s) and Goals/Treatment Plan: * c/w current tx and plan * Appreciate Dr. Thornton/Nirav's f/u on 05/19/18 and 05/20/18 * Appreciate Dr. Fabian's f/u on 05/20/18~BP better controlled after stepping up meds; however, concern that patient realistically cannot be taking meds 3 times per day;-will decrease clonidine and hydralazine (100 mg) to twice daily dosing; if further meds required, can consider cardura; -continue rest of meds; -obtaining workup for secondary causes; * Appreciate Dr. Ruiz/Dr. Saleh's (Nephrology) f/u on 05/19/18~HCTZ increased to 25 mg po daily * Appreciate Dr. Maxwell's f/u on 05/17/18 and 05/18/18 regarding patient's medical issues including uncontrolled HTN on the unit. c/w following medications * Neurontin 300 mg AM and 600 mg HS (neurontin dosing schedule changed on 05/20/18 from 300 TID to 300/600 to help with daytime sedation and restless sleep) * Ativan 1 mg po bid prn * Remeron 15 mg po HS * Seroquel 100 mg po HS * Vitals reviewed and noted below 05/20/18 05/20/18 05/20/18 07:04 08:56 09:01 Temperature 98.0 F Pulse Rate 98 H Respiratory 20 Rate Blood Pressure 158/104 H 150/100 H 142/99 H 05/20/18 05/20/18 05/21/18 14:04 16:00 02:36 Temperature Pulse Rate 100 H 84 85 Respiratory Rate Blood Pressure 114/85 114/80 131/96 H * New lab results noted below: Laboratory Results - last 24 hr 05/20/18 12:14 Sodium 139 Potassium 4.5 Chloride 101 Carbon Dioxide 30 Anion Gap 12 BUN 23 H Creatinine 1.2 Est GFR ( Amer) > 60 Est GFR (Non-Af Amer) > 60 Random Glucose 128 H Calcium 11.2 H Phosphorus 4.2 Magnesium 2.0 Total Bilirubin 0.7 AST 32 ALT 33 Alkaline Phosphatase 80 Total Protein 8.5 H Albumin 4.8 Globulin 3.7 Albumin/Globulin Ratio 1.3 Estimated Date of D/C: 05/24/18
--- NOTE | 2018-05-21 14:44 | CP.PCM.PN ---
<Vinicius Mcdaniels - Last Filed: 05/21/18 14:56> Subjective - Date & Time of Evaluation Date of Evaluation: 05/21/18 Time of Evaluation: 12:00 - Subjective Subjective: INTERNAL MEDICINE PROGRESS NOTE FOR DR. DIANELYS Mcdaniels PGY-1 Pt seen and examined in psychiatry unit this am. No acute nursing events overnight. He is tolerating his diet well. He reports occasional symptoms of headaches. His 12point ROS is otherwise unremarkable. Objective - Vital Signs/Intake and Output Vital Signs (last 24 hours): Temp Pulse Resp BP Pulse Ox 98.6 F 121 H 20 146/101 H 97 05/21/18 07:33 05/21/18 08:09 05/21/18 07:33 05/21/18 08:09 05/16/18 14:07 - Medications Medications: Current Medications Acetaminophen (Tylenol 325mg Tab) 650 mg PO Q4 PRN PRN Reason: Pain, Mild (1-3) Al Hydrox/Mg Hydrox/Simethicone (Maalox Plus 30 Ml) 30 ml PO DAILY PRN PRN Reason: Upset Stomach Albuterol/Ipratropium (Duoneb 3 Mg/0.5 Mg (3 Ml) Ud) 3 ml IH Q2H PRN PRN Reason: Shortness of Breath Amlodipine Besylate (Norvasc) 10 mg PO DAILY [facility] Last Admin: 05/21/18 08:08 Dose: 10 mg Clonidine HCl (Catapres) 0.1 mg PO Q12H [facility] Stop: 05/21/18 22:00 Clonidine HCl (Catapres) 0.1 mg PO DAILY [facility] Diphenhydramine HCl (Benadryl) 50 mg PO Q8 PRN PRN Reason: Allergy symptoms Last Admin: 05/20/18 20:23 Dose: 50 mg Folic Acid (Folic Acid) 1 mg PO DAILY [facility] Last Admin: 05/21/18 08:09 Dose: 1 mg Gabapentin (Neurontin) 300 mg PO QAM [facility]; Protocol Last Admin: 05/21/18 10:01 Dose: 300 mg Gabapentin (Neurontin) 600 mg PO HS [facility]; Protocol Last Admin: 05/20/18 21:30 Dose: 600 mg Haloperidol (Haldol) 5 mg PO Q6 PRN; Protocol PRN Reason: Psychosis Last Admin: 05/20/18 20:23 Dose: 5 mg Hydralazine HCl (Apresoline) 10 mg IVP Q6 PRN PRN Reason: Systolic Blood Pressure Hydralazine HCl (Apresoline) 100 mg PO Q12H [facility] Last Admin: 05/21/18 10:05 Dose: 100 mg Hydrochlorothiazide (Hydrodiuril) 25 mg PO DAILY [facility] Last Admin: 05/21/18 08:09 Dose: 25 mg Lorazepam (Ativan) 1 mg PO BID PRN; Protocol PRN Reason: Restlessness Last Admin: 05/20/18 20:24 Dose: 1 mg Losartan Potassium (Cozaar) 100 mg PO DAILY [facility] Last Admin: 05/21/18 08:09 Dose: 100 mg Magnesium Hydroxide (Milk Of Magnesia) 30 ml PO DAILY PRN PRN Reason: Constipation Mirtazapine (Remeron) 15 mg PO HS [facility] Last Admin: 05/20/18 21:31 Dose: 15 mg Multivitamins/Minerals (Therapeutic-M Tab) 1 tab PO DAILY [facility] Last Admin: 05/21/18 08:09 Dose: 1 tab Ondansetron HCl (Zofran Odt) 4 mg PO Q8H PRN PRN Reason: Nausea/Vomiting Last Admin: 05/18/18 06:25 Dose: 4 mg Quetiapine Fumarate (Seroquel) 100 mg PO HS [facility]; Protocol Last Admin: 05/20/18 21:30 Dose: 100 mg Thiamine HCl (Vitamin B1 Tab) 50 mg PO DAILY [facility] Last Admin: 05/21/18 08:09 Dose: 50 mg Tramadol HCl (Ultram) 50 mg PO TID PRN PRN Reason: severe pain - Labs Labs: 05/16/18 11:00 05/20/18 12:14 - Constitutional Appears: Well, Non-toxic, No Acute Distress - Head Exam Head Exam: NORMAL INSPECTION, NORMOCEPHALIC - Eye Exam Eye Exam: EOMI, Normal appearance - ENT Exam ENT Exam: Mucous Membranes Moist, Normal Exam - Neck Exam Neck Exam: Normal Inspection - Respiratory Exam Respiratory Exam: Clear to Ausculation Bilateral, NORMAL BREATHING PATTERN - Cardiovascular Exam Cardiovascular Exam: REGULAR RHYTHM, +S1, +S2 - GI/Abdominal Exam GI & Abdominal Exam: Soft. absent: Tenderness - Extremities Exam Extremities Exam: Normal Inspection. absent: Calf Tenderness - Back Exam Back Exam: NORMAL INSPECTION - Neurological Exam Neurological Exam: Alert, Awake, Oriented x3 - Psychiatric Exam Psychiatric exam: Normal Affect, Normal Mood - Skin Skin Exam: Dry, Intact, Warm Assessment and Plan - Assessment and Plan (Free Text) Assessment: 57 year old male with past medical history significant for depression, substance abuse, hypertension, COPD, and noncompliance that presented to [facility] with suicidal ideations and depression. Medicine was consulted for management of uncontrolled hypertension Plan: Uncontrolled hypertension Hypertension still uncontrolled Continue monitoring Patient non-compliant with medications. Continue norvasc 10mg PO daily, Clonidine 0.1mg PO q8h, hydralazine 75mg PO q6hrs, Cozaar 100mg PO daily, and HCTZ 25mg PO daily. Nephrology following, recommendations appreciated. Patient counseled on importance of medication compliance. COPD Not in acute exacerbation. Continue nebulizer treatments as needed. Polysubstance abuse Counseled on cessation. Care as per primary team. Depression Suicidal ideation. Care as per primary team. Abnormal urine culture Patient asymptomatic Urine culture positive for corynebacterium Likely contaminant. Case seen, examined and discussed with attending physician, Dr Gastelum <Berta Gastelum R - Last Filed: 05/21/18 17:23> Objective - Vital Signs/Intake and Output Vital Signs (last 24 hours): Temp Pulse Resp BP Pulse Ox 98.6 F 121 H 20 146/101 H 97 05/21/18 07:33 05/21/18 08:09 05/21/18 07:33 05/21/18 08:09 05/16/18 14:07 - Medications Medications: Current Medications Acetaminophen (Tylenol 325mg Tab) 650 mg PO Q4 PRN PRN Reason: Pain, Mild (1-3) Al Hydrox/Mg Hydrox/Simethicone (Maalox Plus 30 Ml) 30 ml PO DAILY PRN PRN Reason: Upset Stomach Last Admin: 05/21/18 15:53 Dose: 30 ml Albuterol/Ipratropium (Duoneb 3 Mg/0.5 Mg (3 Ml) Ud) 3 ml IH Q2H PRN PRN Reason: Shortness of Breath Amlodipine Besylate (Norvasc) 10 mg PO DAILY [facility] Last Admin: 05/21/18 08:08 Dose: 10 mg Clonidine HCl (Catapres) 0.1 mg PO Q12H [facility] Stop: 05/21/18 22:00 Clonidine HCl (Catapres) 0.1 mg PO DAILY [facility] Diphenhydramine HCl (Benadryl) 50 mg PO Q8 PRN PRN Reason: Allergy symptoms Last Admin: 05/20/18 20:23 Dose: 50 mg Folic Acid (Folic Acid) 1 mg PO DAILY [facility] Last Admin: 05/21/18 08:09 Dose: 1 mg [facility] ([facility]in) [facility] [place] Protocol Last Admin: 05/21/18 10:01 Dose: 300 mg Gabapentin (Neurontin) 600 mg PO HS [facility]; Protocol Last Admin: 05/20/18 21:30 Dose: 600 mg Haloperidol (Haldol) 5 mg PO Q6 PRN; Protocol PRN Reason: Psychosis Last Admin: 05/20/18 20:23 Dose: 5 mg Hydralazine HCl (Apresoline) 10 mg IVP Q6 PRN PRN Reason: Systolic Blood Pressure Hydralazine HCl (Apresoline) 100 mg PO Q12H [facility] Last Admin: 05/21/18 10:05 Dose: 100 mg Hydrochlorothiazide (Hydrodiuril) 25 mg PO DAILY [facility] Last Admin: 05/21/18 08:09 Dose: 25 mg Lorazepam (Ativan) 1 mg PO BID PRN; Protocol PRN Reason: Restlessness Last Admin: 05/20/18 20:24 Dose: 1 mg Losartan Potassium (Cozaar) 100 mg PO DAILY [facility] Last Admin: 05/21/18 08:09 Dose: 100 mg Magnesium Hydroxide (Milk Of Magnesia) 30 ml PO DAILY PRN PRN Reason: Constipation Mirtazapine (Remeron) 15 mg PO HS [facility] Last Admin: 05/20/18 21:31 Dose: 15 mg Multivitamins/Minerals (Therapeutic-M Tab) 1 tab PO DAILY [facility] Last Admin: 05/21/18 08:09 Dose: 1 tab Ondansetron HCl (Zofran Odt) 4 mg PO Q8H PRN PRN Reason: Nausea/Vomiting Last Admin: 05/18/18 06:25 Dose: 4 mg Quetiapine Fumarate (Seroquel) 100 mg PO HS [facility]; Protocol Last Admin: 05/20/18 21:30 Dose: 100 mg Thiamine HCl (Vitamin B1 Tab) 50 mg PO DAILY [facility] Last Admin: 05/21/18 08:09 Dose: 50 mg Tramadol HCl (Ultram) 50 mg PO TID PRN PRN Reason: severe pain - Labs Labs: 05/16/18 11:00 05/20/18 12:14 Attending/Attestation - Attestation I have personally seen and examined this patient.: Yes I have fully participated in the care of the patient.: Yes I have reviewed all pertinent clinical information, including history, physical exam and plan: Yes Notes (Text): Patient seen and examined by me with resident at 11:10 AM on 05/21/18. Case including HPI, physical exam, and assessment and plan discussed with resident. Agree with above with following additions/corrections. Patient is a 57 year old male with past medical history significant for depression, substance abuse, hypertension, COPD, and noncompliance that presented to [facility] with suicidal ideations and depression. Patient states that he is feeling a little better. Patient states he is still feeling a little unsteady on his feet. He feels his "equilibrium is off." He denies chest pain or shortness of breath. No headaches or dizziness. No change in vision. No fevers or chills. No nausea, vomiting, or abdominal pain. No dysuria. No diarrhea or constipation. Physical exam: General: Awake and alert sitting up in chair in no acute distress. HEENT: Normocephalic, atraumatic. Extraocular muscles intact, pupils equal and reactive, no scleral icterus. Oropharynx is pink and moist. Neck is supple. Cardiovascular: Normal rhythm. Normal S1 and S2. No murmurs, rubs, or gallops appreciated Pulmonary: Normal respiratory effort. No rhonchi, rales, or wheezing appr eciated. Gastrointestinal: Soft, nondistended. Nontender. Positive bowel sounds all 4 quadrants. No guarding. Musculoskeletal: Moves all extremities. No calf tenderness. No edema appreciated. Central nervous system: AAOx3 Dermatologic: Skin warm and dry. Assessment and plan: Patient is a 57 year old male with past medical history significant for depression, substance abuse, hypertension, COPD, and noncompliance that presented to [facility] with suicidal ideations and depression. 1. Uncontrolled hypertension. Patient non-compliant with medications. Continue Norvasc, Clonidine, Hydralazine, and HCTZ. Nephrology following. Medications being adjusted by nephrology. Patient counseled on importance of medication compliance. 2. COPD. Not in acute exacerbation. Continue nebulizer treatments as needed. 3. Polysubstance abuse. Counseled on cessation. Care as per primary team. 4. Depression. Suicidal ideation. Care as per primary team. 5. Abnormal urine culture. Patient asymptomatic. Urine culture positive for corynebacterium Likely contaminant. Case was discussed in detail with patient regarding current diagnosis and treatment plan. All questions answered. Patient's blood pressure being managed by nephrology. We will sign off. Please reconsult anytime if needed
[2018-05-21] MEDS ORDERED: Pantoprazole 20 mg EC Tab PO SCH (16:00)
[2018-05-21 16:52] LABS: PH,URINE 6.5 (4.7-8.0); URINE BILIRUBIN NEGATIVE (NEGATIVE); URINE BLOOD NEGATIVE (NEGATIVE); URINE COLOR YELLOW (YELLOW); URINE GLUCOSE (UA) NEGATIVE (NEGATIVE); URINE LEUKOCYTE ESTERASE NEGATIVE Leu/uL (NEGATIVE); URINE PROTEIN NEGATIVE mg/dL (<30 mg/dL); URINE UROBILINOGEN 0.2 E.U./dL (<1 E.U./dL)
[2018-05-21 16:53] LABS: URINE APPEARANCE CLEAR (CLEAR)
--- NOTE | 2018-05-21 19:05 | CP.PCM.PN ---
Subjective - Date & Time of Evaluation Date of Evaluation: 05/21/18 Time of Evaluation: 10:00 - Subjective Subjective: Nephrology Progress Note for Dr. Fabian Patient seen and examined at bedside. Patient states he is feeling dizzy. Patient with no acute events overnight. Denies chest pain, shortness of breath, nausea, vomiting, diarrhea, fever, chills. Objective - Vital Signs/Intake and Output Vital Signs (last 24 hours): Temp Pulse Resp BP Pulse Ox 98.6 F 121 H 20 146/101 H 97 05/21/18 07:33 05/21/18 08:09 05/21/18 07:33 05/21/18 08:09 05/16/18 14:07 - Medications Medications: Current Medications Acetaminophen (Tylenol 325mg Tab) 650 mg PO Q4 PRN PRN Reason: Pain, Mild (1-3) Al Hydrox/Mg Hydrox/Simethicone (Maalox Plus 30 Ml) 30 ml PO DAILY PRN PRN Reason: Upset Stomach Last Admin: 05/21/18 15:53 Dose: 30 ml Albuterol/Ipratropium (Duoneb 3 Mg/0.5 Mg (3 Ml) Ud) 3 ml IH Q2H PRN PRN Reason: Shortness of Breath Amlodipine Besylate (Norvasc) 10 mg PO DAILY [facility] Last Admin: 05/21/18 08:08 Dose: 10 mg Clonidine HCl (Catapres) 0.1 mg PO Q12H [facility] Stop: 05/21/18 22:00 Clonidine HCl (Catapres) 0.1 mg PO DAILY [facility] Diphenhydramine HCl (Benadryl) 50 mg PO Q8 PRN PRN Reason: Allergy symptoms Last Admin: 05/20/18 20:23 Dose: 50 mg Folic Acid (Folic Acid) 1 mg PO DAILY [facility] Last Admin: 05/21/18 08:09 Dose: 1 mg Gabapentin (Neurontin) 300 mg PO QAM [facility]; Protocol Last Admin: 05/21/18 10:01 Dose: 300 mg Gabapentin (Neurontin) 600 mg PO HS [facility]; Protocol Last Admin: 05/20/18 21:30 Dose: 600 mg Haloperidol (Haldol) 5 mg PO Q6 PRN; Protocol PRN Reason: Psychosis Last Admin: 05/20/18 20:23 Dose: 5 mg Hydralazine HCl (Apresoline) 10 mg IVP Q6 PRN PRN Reason: Systolic Blood Pressure Hydralazine HCl (Apresoline) 100 mg PO Q12H [facility] Last Admin: 05/21/18 10:05 Dose: 100 mg Hydrochlorothiazide (Hydrodiuril) 25 mg PO DAILY [facility] Last Admin: 05/21/18 08:09 Dose: 25 mg Lorazepam (Ativan) 1 mg PO BID PRN; Protocol PRN Reason: Restlessness Last Admin: 05/20/18 20:24 Dose: 1 mg Losartan Potassium (Cozaar) 100 mg PO DAILY [facility] Last Admin: 05/21/18 08:09 Dose: 100 mg Magnesium Hydroxide (Milk Of Magnesia) 30 ml PO DAILY PRN PRN Reason: Constipation Mirtazapine (Remeron) 15 mg PO [facility] Last Admin: 05/20/18 21:31 Dose: 15 mg Multivitamins/Minerals (Therapeutic-M Tab) 1 tab PO DAILY [facility] Last Admin: 05/21/18 08:09 Dose: 1 tab Ondansetron HCl (Zofran Odt) 4 mg PO Q8H PRN PRN Reason: Nausea/Vomiting Last Admin: 05/18/18 06:25 Dose: 4 mg Quetiapine Fumarate (Seroquel) 100 mg PO [facility]; Protocol Last Admin: 05/20/18 21:30 Dose: 100 mg Thiamine HCl (Vitamin B1 Tab) 50 mg PO DAILY [facility] Last Admin: 05/21/18 08:09 Dose: 50 mg Tramadol HCl (Ultram) 50 mg PO TID PRN PRN Reason: severe pain - Labs Labs: 05/16/18 11:00 05/20/18 12:14 - Constitutional Appears: Non-toxic, No Acute Distress - Head Exam Head Exam: ATRAUMATIC, NORMAL INSPECTION, NORMOCEPHALIC - ENT Exam ENT Exam: Mucous Membranes Moist - Cardiovascular Exam Cardiovascular Exam: RRR, +S1, +S2 - GI/Abdominal Exam GI & Abdominal Exam: Soft, Tenderness. absent: Normal Bowel Sounds - Extremities Exam Extremities Exam: Normal Inspection. absent: Pedal Edema - Neurological Exam Neurological Exam: Alert, Awake, Oriented x3 - Psychiatric Exam Psychiatric exam: Normal Affect, Normal Mood - Skin Skin Exam: Intact, Warm Assessment and Plan - Assessment and Plan (Free Text) Plan: 1. Hypertensive urgency Patient positive for orthostatic vitals this AM, likely contributing to dizziness Will cut clonidine to once daily starting tomorrow Will reorder labs for AM Secondary HTN workup pending 2. Depression/Suicidal ideation Management as per psychiatry Debbie, PGY-3
[2018-05-22 07:37] LABS: HEMOGLOBIN 15.1 g/dL (14.0-18.0); MEAN CELL VOLUME 84.6 fl (80.0-105.0); MEAN CORPUSCULAR HEMOGLOBIN 28.1 pg (25.0-35.0); MEAN CORPUSCULAR HGB CONC 33.2 g/dl (31.0-37.0); MEAN PLATELET VOLUME 10.9 fl (7.0-11.0); RBC 5.38 10^6/uL (3.5-6.1); RED CELL DISTRIBUTION WIDTH 15.2 % (11.5-14.5); WHITE BLOOD COUNT 11.5 10^3/uL (4.5-11.0)
[2018-05-22 08:18] LABS: ALB/GLOB RATIO 1.4 (1.1-1.8); ALBUMIN 4.1 g/dL (3.0-4.8); ALT/SGPT 41 U/L (7-56); AST/SGOT 24 U/L (17-59); BLOOD UREA NITROGEN 34 mg/dL (7-21); CALCIUM 10.3 mg/dL (8.4-10.5); GFR NON-AFRICAN AMERICAN > 60
[2018-05-22] MEDS: Multivitamin With Minerals Tab PO SCH (09:17)
--- NOTE | 2018-05-22 10:04 | PCM.PYCHPN ---
Psychiatric Progress Note - Psychiatric Progress Note Patient seen today, length of contact: 30min Problems Identified/Issues Discussed: I reviewed recent notes and patient was interviewed at bedside again. Grooming is a little unkempt however he remains oriented to month, year and location as well as circumstances. Patient reports that he is "okay", still feels stressed and overwhelmed. Sleep has been up and down. Patient's affect remains dysthymic and passive. He is a little more alert and verbal today though still labile and poorly motivated for treatment, per staff notes and this brief writer's observation. He doesn't appear to be psychotic and delusions were not elicited. He denies any perceptual disturbance at this time. Patient remains depressed and improvement is slow on the unit. Patient generally keeps to himself and doesn't attend groups even with staff prompting. Patient farzana lopez stays in his room most of the time except for meals. He has been in good control without any major behavioral issues thus far. Diagnostic Results: major depressive d/o - recurrent, severe with no psychosis r/o substance induced psychosis Opioid withdrawal Opioid use d/o - severe Cocaine use d/o - moderate Tobacco use d/o - severe Sedative hypnotic use d/o severe, in sustained remission HTN Neuropathy Medication Change: No ( ) Medical Record Reviewed: Yes Mental Status Examination - Cognitive Function Orientation: Person, Place, Situation Memory: Intact Attention: Poor Concentration: Poor Association: Loose Fund of Knowledge: Poor - Mood Mood: Depressed - Affect Affect: Constricted, Flat - Formal Thought Process Formal Thought Process: No Impairment - Suicidal Ideation Suicidal Ideation: No - Homicidal Ideation Homicidal Ideation: No Goal/Treatment Plan - Goal/Treatment Plan Need for Continued Stay: Remain at risks for inpatient hospitalization, Severe depression anxiety, Discharge may exacerbated symptoms, Severe functional impairment Progress Toward Problem(s) and Goals/Treatment Plan: * c/w current tx and plan * Appreciate Dr. Maxwell's f/u on 05/17/18 and 05/18/18 regarding patient's m edical issues including uncontrolled HTN on the unit. * Appreciate Dr. Thornton/Nirav's f/u on 05/19/18 and 05/20/18 * Appreciate Dr. Mcdaniels/Dks f/u on 05/21/18 * Hypertension still uncontrolled, Continue monitoring * Continue norvasc 10mg PO daily, Clonidine 0.1mg PO q8h, hydralazine 75mg PO q6hrs, Cozaar 100mg PO daily, and HCTZ 25mg PO daily. * Nephrology following, recommendations appreciated. * Patient counseled on importance of medication compliance. * Appreciate Dr. Ruiz/Dr. Saleh's (Nephrology) f/u on 05/19/18 * ~HCTZ increased to 25 mg po daily * Appreciate Dr. Fabian's (Nephrology) f/u on 05/20/18 * ~BP better controlled after stepping up meds; however, concern that patient realistically cannot be taking meds 3 times per day;-will decrease clonidine and hydralazine (100 mg) to twice daily dosing; if further meds required, can consider cardura; -continue rest of meds; -obtaining workup for secondary causes; * Appreciate Dr. Lewis/Dr. Fabian's (Nephrology) f/u on 05/21/18 * Patient positive for orthostatic vitals this AM, likely contributing to dizziness * Will cut clonidine to once daily starting tomorrow * Will reorder labs for AM * Secondary HTN workup pending c/w following medications * Neurontin 300 mg AM and 600 mg HS (neurontin dosing schedule changed on 05/20/18 from 300 TID to 300/600 to help with daytime sedation and restless sleep) * Ativan 1 mg po bid prn * Remeron 15 mg po HS * Seroquel 100 mg po HS * Vitals reviewed and noted below Selected Entries 05/21/18 05/21/18 05/21/18 07:33 08:08 08:09 Temperature 98.6 F Pulse Rate 69 121 H Respiratory 20 Rate Blood Pressure 146/109 H 146/101 H 146/101 H 05/21/18 05/21/18 21:16 21:17 Temperature Pulse Rate 82 82 Respiratory Rate Blood Pressure 123/96 H 123/96 H * New lab results noted below: 05/21/18 16:46 Urine Color Yellow Urine Appearance Clear Urine pH 6.5 Ur Specific [place] 1.015 Urine Protein Negative Urine Glucose (UA) Negative Urine Ketones Negative Urine Blood Negative Urine Nitrate Negative Urine Bilirubin Negative Urine Urobilinogen 0.2 Ur Leukocyte Esterase Negative Laboratory Results - last 24 hr 05/20/18 12:14 Sodium 139 Potassium 4.5 Chloride 101 Carbon Dioxide 30 Anion Gap 12 BUN 23 H Creatinine 1.2 Est GFR ( Amer) > 60 Est GFR (Non-Af Amer) > 60 Random Glucose 128 H Calcium 11.2 H Phosphorus 4.2 Magnesium 2.0 Total Bilirubin 0.7 AST 32 ALT 33 Alkaline Phosphatase 80 Total Protein 8.5 H Albumin 4.8 Globulin 3.7 Albumin/Globulin Ratio 1.3 Estimated Date of D/C: 05/24/18
--- NOTE | 2018-05-22 21:51 | CP.PCM.PN ---
Subjective - Date & Time of Evaluation Date of Evaluation: 05/22/18 Time of Evaluation: 12:00 - Subjective Subjective: Patient still feeling "dizzy" at times; tolerating diet; Objective - Vital Signs/Intake and Output Vital Signs (last 24 hours): Temp Pulse Resp BP Pulse Ox 98.1 F 79 18 113/87 97 05/22/18 07:00 05/22/18 16:00 05/22/18 07:00 05/22/18 16:00 05/16/18 14:07 - Medications Medications: Current Medications Acetaminophen (Tylenol 325mg Tab) 650 mg PO Q4 PRN PRN Reason: Pain, Mild (1-3) Al Hydrox/Mg Hydrox/Simethicone (Maalox Plus 30 Ml) 30 ml PO DAILY PRN PRN Reason: Upset Stomach Last Admin: 05/21/18 15:53 Dose: 30 ml Albuterol/Ipratropium (Duoneb 3 Mg/0.5 Mg (3 Ml) Ud) 3 ml IH Q2H PRN PRN Reason: Shortness of Breath Amlodipine Besylate (Norvasc) 10 mg PO DAILY [facility] Last Admin: 05/22/18 09:14 Dose: 10 mg Clonidine HCl (Catapres) 0.1 mg PO DAILY [facility] Last Admin: 05/22/18 09:16 Dose: 0.1 mg Diphenhydramine HCl (Benadryl) 50 mg PO Q8 PRN PRN Reason: Allergy symptoms Last Admin: 05/22/18 21:08 Dose: 50 mg Folic Acid (Folic Acid) 1 mg PO DAILY [facility] Last Admin: 05/22/18 09:16 Dose: 1 mg Gabapentin (Neurontin) 300 mg PO QAM [facility]; Protocol Last Admin: 05/22/18 09:15 Dose: 300 mg Gabapentin (Neurontin) 600 mg PO HS [facility]; Protocol Last Admin: 05/22/18 21:08 Dose: 600 mg Haloperidol (Haldol) 5 mg PO Q6 PRN; Protocol PRN Reason: Psychosis Last Admin: 05/22/18 21:09 Dose: 5 mg Hydralazine HCl (Apresoline) 10 mg IVP Q6 PRN PRN Reason: Systolic Blood Pressure Hydralazine HCl (Apresoline) 50 mg PO Q12H [facility] Last Admin: 05/22/18 13:17 Dose: 50 mg Hydrochlorothiazide (Hydrodiuril) 25 mg PO DAILY [facility] Last Admin: 05/22/18 09:17 Dose: Not Given Lorazepam (Ativan) 1 mg PO BID PRN; Protocol PRN Reason: Restlessness Last Admin: 05/22/18 21:09 Dose: 1 mg Losartan Potassium (Cozaar) 100 mg PO DAILY [facility] Last Admin: 05/22/18 13:17 Dose: 100 mg Magnesium Hydroxide (Milk Of Magnesia) 30 ml PO DAILY PRN PRN Reason: Constipation Mirtazapine (Remeron) 15 mg PO HS [facility] Last Admin: 05/22/18 21:08 Dose: 15 mg Multivitamins/Minerals (Therapeutic-M Tab) 1 tab PO DAILY [facility] Last Admin: 05/22/18 09:17 Dose: 1 tab Ondansetron HCl (Zofran Odt) 4 mg PO Q8H PRN PRN Reason: Nausea/Vomiting Last Admin: 05/18/18 06:25 Dose: 4 mg Quetiapine Fumarate (Seroquel) 150 mg PO HS [facility]; Protocol Last Admin: 05/22/18 21:08 Dose: 150 mg Thiamine HCl (Vitamin B1 Tab) 50 mg PO DAILY [facility] Last Admin: 05/22/18 09:14 Dose: 50 mg Tramadol HCl (Ultram) 50 mg PO TID PRN PRN Reason: severe pain - Labs Labs: 05/22/18 07:00 05/22/18 07:00 - Constitutional Appears: Non-toxic, No Acute Distress - Eye Exam Eye Exam: Normal appearance - Respiratory Exam Respiratory Exam: Clear to Ausculation Bilateral. absent: Respiratory Distress - Cardiovascular Exam Cardiovascular Exam: RRR, +S1, +S2 - Extremities Exam Additional comments: no leg edema; - Neurological Exam Neurological Exam: Alert, Awake - Psychiatric Exam Psychiatric exam: Normal Mood. absent: Agitated - Skin Skin Exam: Warm. absent: Cyanosis Assessment and Plan (1) HTN (hypertension) Assessment & Plan: Again with orthostatic symptoms, low/normal BP after starting BP meds; -tapering off clonidine; -holding hctz; -hydralazine dose cut in half to 50 mg q12h; -continue losartan 100 and amlodipine 10; -further recs following response to the above; Status: Acute (2) Hypertensive urgency Status: Suspected
[2018-05-23] MEDS: Multivitamin With Minerals Tab PO SCH (08:55)
--- NOTE | 2018-05-23 10:41 | PCM.PYCHPN ---
Psychiatric Progress Note - Psychiatric Progress Note Patient seen today, length of contact: 30min Patient Chief Complaint: "I was not able to sleep, I took remeron, ativan, and something else, I need medication for sleep and for my depression..." Problems Identified/Issues Discussed: Suicide/ homicide prevention, past psychiatric h/o, current psychiatric symptoms, medical problems, risk/benefits and alternatives of medications, medications compliance, coping strategies, substance abuse h/o, relapse prevention, importance of follow up with psychiatrist and therapist, discharge plan. Medical Problems: see HPI UA positive for corinebacterium Diagnostic Results: 05/16/18 11:00 05/18/18 06:40 Lab Results 05/18/18 06:40: Free T4 1.27 05/18/18 06:40: Sodium 138, Potassium 3.4 L, Chloride 103, Carbon Dioxide 29, Anion Gap 10, BUN 15, Creatinine 0.9, Est GFR ( Amer) > 60, Est GFR (Non- Af Amer) > 60, Random Glucose 123 H, Calcium 9.8, Phosphorus 2.1 L, Magnesium 2.0, Total Bilirubin 0.7, AST 36, ALT 29, Alkaline Phosphatase 79, Total Protein 7.1, Albumin 3.9, Globulin 3.2, Albumin/Globulin Ratio 1.2, Triglycerides 157, Cholesterol 167, LDL Cholesterol Direct 97, HDL Cholesterol 45 05/17/18 06:40: RPR Nonreactive 05/17/18 06:40: TSH 3rd Generation 0.10 L 05/16/18 11:18: Urine Opiates Screen Positive H, Urine Methadone Screen Negative, Ur Barbiturates Screen Negative, Ur Phencyclidine Scrn Negative, Ur Amphetamines Screen Negative, U Benzodiazepines Scrn Positive H, U Oth Cocaine Metabols Negative, U Cannabinoids Screen Negative 05/16/18 11:18: Urine Color Yellow, Urine Appearance Clear, Urine pH 6.0, Ur Specific [place] >= 1.030, Urine Protein 100 H, Urine Glucose (UA) Negative, Urine Ketones >=80, Urine Blood Trace-lysed H, Urine Nitrate Negative, Urine Bilirubin Moderate H, Urine Urobilinogen 0.2, Ur Leukocyte Esterase Negative, Urine RBC 0 - 2, Urine WBC 5 - 10, Ur Epithelial Cells 1 - 3, Urine Bacteria T race, Urine Other Mucus 05/16/18 11:00: Alcohol, Quantitative < 10 05/16/18 11:00: Salicylates < 1 L, Acetaminophen < 10.0 L 05/16/18 11:00: Sodium 140, Potassium 4.0, Chloride 105, Carbon Dioxide 24, Anion Gap 15, BUN 15, Creatinine 0.9, Est GFR ( Amer) > 60, Est GFR (Non- Af Amer) > 60, Random Glucose 92, Calcium 9.1, Total Bilirubin 1.0, AST 56, ALT 31, Alkaline Phosphatase 80, Total Protein 6.9, Albumin 3.8, Globulin 3.1, Albumin/Globulin Ratio 1.2 05/16/18 11:00: WBC 7.7, RBC 5.11, Hgb 14.2, Hct 43.5, MCV 85.1, MCH 27.8, MCHC 32.6, RDW 15.2 H, Plt Count 192, MPV 10.3, Gran % 85.5 H, Lymph % (Auto) 10.8 L, [place] % (Auto) 3.2, Eos % (Auto) 0.1 L, Baso % (Auto) 0.3, Gran # 6.39, Lymph # (Auto) 0.8 L, [place] # (Auto) 0.2, Eos # (Auto) 0.0, Baso # (Auto) 0.02 Vital Signs Temp Pulse Resp BP Pulse Ox 05/18/18 09:35 157/135 H 05/18/18 08:11 163/105 H 05/18/18 07:00 62 163/105 H 05/18/18 06:48 98.1 F 62 20 163/105 H 05/17/18 20:07 64 154/97 H 05/17/18 17:33 66 168/93 H 05/17/18 16:00 66 168/93 H 05/17/18 13:15 66 188/117 H 05/17/18 13:00 66 198/120 H 05/17/18 12:48 212/143 H 05/17/18 12:37 71 212/143 H 05/17/18 07:15 99.4 F 70 20 198/123 H 05/16/18 16:38 86 159/98 H 05/16/18 14:07 98.0 F 82 18 97 05/16/18 13:56 81 18 159/98 H 97 11/18/18 11:34 98.3 F 74 18 161/109 H 95 Temp Pulse Resp BP Pulse Ox 98.0 F 70 18 100/69 97 05/23/18 07:10 05/23/18 08:46 05/23/18 07:10 05/23/18 08:46 05/16/18 14:07 DSM 5 Symptoms Update: shortly patient is 57-year-old male with a history of depression, opioid use disorder, h/o detoxes and rehabs, recent d/c from the [facility] 02/2018, pt has questionable compliance with meds and follow up appts, came to the hospital reporting depressed mood and possible suicidal ideation. As per ER report pt been increasingly feeling more and more depressed over the past month, states he recently got out of her long-term relationship. Patient has thoughts of suicide by overdose. as per RN report pt is self isolating, not participating in unit activities. No agitation, no aggression, pt required Haldol+Benadryl+ativan over night because of anxiety/agitation, took po. pt was seen in his room today, presented to be depressed, poor hygiene, pt is pessimistic and hopeless, pt said that he feels tired because he was not able to sleep, pt asked his meds to be adjusted, pt is willing to increase remeron for depression and insomnia, pt said he feels more comfortable with his withdrawal symptoms, able to eat, not vomiting. denied v/a/t hallucinations, denied paranoid ideation. so far pt tolerated meds well, no side effects observed or reported. AIMS 0, no EPS. Impression: DSM 5 Diagnosis: major depressive d/o - recurrent, severe with no psychosis r/o substance induced psychosis Opioid withdrawal Opioid use d/o - severe Cocaine use d/o - moderate Tobacco use d/o - severe Sedative hypnotic use d/o severe, in sustained remission HTN Neuropathy Medication Change: Yes (remeron increased, tramadol d/c) Medical Record Reviewed: Yes Mental Status Examination - Cognitive Function Orientation: Person, Place, Situation Memory: Intact Attention: Poor Concentration: Poor Association: Loose Fund of Knowledge: Poor - Mood Mood: Depressed - Affect Affect: Constricted, Flat - Formal Thought Process Formal Thought Process: No Impairment - Suicidal Ideation Suicidal Ideation: No - Homicidal Ideation Homicidal Ideation: No Goal/Treatment Plan - Goal/Treatment Plan Need for Continued Stay: Remain at risks for inpatient hospitalization, Severe depression anxiety, Discharge may exacerbated symptoms, Severe functional impairment Progress Toward Problem(s) and Goals/Treatment Plan: Milieu/structure/supportive therapy Medical consult was called amLODIPine [Norvasc] 10 mg PO DAILY resumed by medical team Gabapentin [Neurontin] 300 mg PO TID resumed Mirtazapine [Remeron] 30 mg PO HS resumed for depression Pantoprazole [Protonix EC Tab] 20 mg PO DAILY resumed QUEtiapine [SEROquel] 150 mg PO HS for mood stabilization SW consultation for discharge plan and social issues Family involvement Follow up on labs Will monitor closely Pt was educated about risk/benefits and alternatives of medications, coping strategies (safety plan, suicide prevention), relapse prevention, importance of follow up with psychiatrist and therapist, stay away from drugs/alcohol/smoking Estimated Date of D/C: 05/26/18
--- NOTE | 2018-05-24 08:08 | CP.PCM.PN ---
Subjective - Date & Time of Evaluation Date of Evaluation: 05/23/18 Time of Evaluation: 11:00 - Subjective Subjective: Patient still feeling dizzy, unsteady on his feet; eating well; Objective - Vital Signs/Intake and Output Vital Signs (last 24 hours): Temp Pulse Resp BP Pulse Ox 98.0 F 86 18 115/82 97 05/23/18 07:10 05/23/18 16:49 05/23/18 07:10 05/23/18 16:49 05/16/18 14:07 - Medications Medications: Current Medications Acetaminophen (Tylenol 325mg Tab) 650 mg PO Q4 PRN PRN Reason: Pain, Mild (1-3) Al Hydrox/Mg Hydrox/Simethicone (Maalox Plus 30 Ml) 30 ml PO DAILY PRN PRN Reason: Upset Stomach Last Admin: 05/21/18 15:53 Dose: 30 ml Albuterol/Ipratropium (Duoneb 3 Mg/0.5 Mg (3 Ml) Ud) 3 ml IH Q2H PRN PRN Reason: Shortness of Breath Amlodipine Besylate (Norvasc) 5 mg PO DAILY [facility] Last Admin: 05/23/18 08:46 Dose: Not Given Diphenhydramine HCl (Benadryl) 50 mg PO Q8 PRN PRN Reason: Allergy symptoms Last Admin: 05/23/18 22:54 Dose: 50 mg Folic Acid (Folic Acid) 1 mg PO DAILY [facility] Last Admin: 05/23/18 08:55 Dose: 1 mg Gabapentin (Neurontin) 300 mg PO QAM [facility]; Protocol Last Admin: 05/23/18 10:03 Dose: Not Given Gabapentin (Neurontin) 600 mg PO HS [facility]; Protocol Last Admin: 05/23/18 21:08 Dose: 600 mg Haloperidol (Haldol) 5 mg PO Q6 PRN; Protocol PRN Reason: Psychosis Last Admin: 05/22/18 21:09 Dose: 5 mg Hydralazine HCl (Apresoline) 10 mg IVP Q6 PRN PRN Reason: Systolic Blood Pressure Hydralazine HCl (Apresoline) 50 mg PO Q12H [facility] Last Admin: 05/22/18 22:16 Dose: Not Given Hydrochlorothiazide (Hydrodiuril) 25 mg PO DAILY [facility] Last Admin: 05/22/18 09:17 Dose: Not Given Lorazepam (Ativan) 1 mg PO BID PRN; Protocol PRN Reason: Restlessness Last Admin: 05/22/18 21:09 Dose: 1 mg Losartan Potassium (Cozaar) 50 mg PO DAILY [facility] Last Admin: 05/23/18 08:42 Dose: Not Given Magnesium Hydroxide (Milk Of Magnesia) 30 ml PO DAILY PRN PRN Reason: Constipation Mirtazapine (Remeron) 30 mg PO HS [facility] Last Admin: 05/23/18 21:08 Dose: 30 mg Multivitamins/Minerals (Therapeutic-M Tab) 1 tab PO DAILY [facility] Last Admin: 05/23/18 08:55 Dose: 1 tab Ondansetron HCl (Zofran Odt) 4 mg PO Q8H PRN PRN Reason: Nausea/Vomiting Last Admin: 05/18/18 06:25 Dose: 4 mg Quetiapine Fumarate (Seroquel) 150 mg PO HS [facility]; Protocol Last Admin: 05/23/18 21:08 Dose: 150 mg Thiamine HCl (Vitamin B1 Tab) 50 mg PO DAILY [facility] Last Admin: 05/23/18 08:55 Dose: 50 mg - Labs Labs: 05/22/18 07:00 05/22/18 07:00 - Constitutional Appears: Non-toxic, No Acute Distress - Eye Exam Eye Exam: Normal appearance - Respiratory Exam Respiratory Exam: Clear to Ausculation Bilateral. absent: Respiratory Distress - Cardiovascular Exam Cardiovascular Exam: RRR, +S1, +S2 - Extremities Exam Additional comments: no leg edema - Neurological Exam Neurological Exam: Alert, Awake - Psychiatric Exam Psychiatric exam: Normal Mood. absent: Agitated Assessment and Plan (1) HTN (hypertension) Assessment & Plan: Normotensive despite not having received several meds yesterday; unclear why BP was so high on initial days of admission; effects of withdrawal? -BP med doses already decreased, hydralazine stopped, clonidine tapered off; -holding all BP meds today, should re-assess tomorrow; will have to start back very slowly; -consider neuro eval for dizziness/dysequilibrium; Status: Acute (2) Hypertensive urgency Status: Suspected - Assessment and Plan (Free Text) Assessment: Thank you for allowing us to take part in the care of Mr. Boston; Dr. Correa will resume care from tomorrow.
[2018-05-24] MEDS: Multivitamin With Minerals Tab PO SCH (09:12)
--- NOTE | 2018-05-24 10:26 | CP.PCM.PN ---
<Raheel Ruiz - Last Filed: 05/24/18 18:45> Subjective - Date & Time of Evaluation Date of Evaluation: 05/24/18 Time of Evaluation: 07:50 - Subjective Subjective: Nephro Progress Note for Dr. Saleh Service Patient seen and examined at bedside in Psych unit. Reports dizziness still despite off all medications, reports dizziness with position changes but moves from lying in bed to sitting on edge of bed rapidly and without issue. No appreciable distress observed. Objective - Vital Signs/Intake and Output Vital Signs (last 24 hours): Temp Pulse Resp BP Pulse Ox 98.0 F 86 18 115/82 97 05/23/18 07:10 05/23/18 16:49 05/23/18 07:10 05/23/18 16:49 05/16/18 14:07 - Medications Medications: Current Medications Acetaminophen (Tylenol 325mg Tab) 650 mg PO Q4 PRN PRN Reason: Pain, Mild (1-3) Al Hydrox/Mg Hydrox/Simethicone (Maalox Plus 30 Ml) 30 ml PO DAILY PRN PRN Reason: Upset Stomach Last Admin: 05/21/18 15:53 Dose: 30 ml Albuterol/Ipratropium (Duoneb 3 Mg/0.5 Mg (3 Ml) Ud) 3 ml IH Q2H PRN PRN Reason: Shortness of Breath Amlodipine Besylate (Norvasc) 5 mg PO DAILY [facility] Last Admin: 05/23/18 08:46 Dose: Not Given Diphenhydramine HCl (Benadryl) 50 mg PO Q8 PRN PRN Reason: Allergy symptoms Last Admin: 05/23/18 22:54 Dose: 50 mg Folic Acid (Folic Acid) 1 mg PO DAILY [facility] Last Admin: 05/24/18 09:12 Dose: 1 mg Gabapentin (Neurontin) 300 mg PO QAM [facility]; Protocol Last Admin: 05/24/18 09:12 Dose: 300 mg Gabapentin (Neurontin) 600 mg PO HS [facility]; Protocol Last Admin: 05/23/18 21:08 Dose: 600 mg Haloperidol (Haldol) 5 mg PO Q6 PRN; Protocol PRN Reason: Psychosis Last Admin: 05/22/18 21:09 Dose: 5 mg Hydralazine HCl (Apresoline) 50 mg PO Q12H [facility] Last Admin: 05/22/18 22:16 Dose: Not Given Hydrochlorothiazide (Hydrodiuril) 25 mg PO DAILY [facility] Last Admin: 05/22/18 09:17 Dose: Not Given Lorazepam (Ativan) 1 mg PO BID PRN; Protocol PRN Reason: Restlessness Last Admin: 05/24/18 09:13 Dose: 1 mg Losartan Potassium (Cozaar) 50 mg PO DAILY [facility] Last Admin: 05/23/18 08:42 Dose: Not Given Magnesium Hydroxide (Milk Of Magnesia) 30 ml PO DAILY PRN PRN Reason: Constipation Mirtazapine (Remeron) 30 mg PO HS [facility] Last Admin: 05/23/18 21:08 Dose: 30 mg Multivitamins/Minerals (Therapeutic-M Tab) 1 tab PO DAILY [facility] Last Admin: 05/24/18 09:12 Dose: 1 tab Ondansetron HCl (Zofran Odt) 4 mg PO Q8H PRN PRN Reason: Nausea/Vomiting Last Admin: 05/18/18 06:25 Dose: 4 mg Quetiapine Fumarate (Seroquel) 150 mg PO [facility]; Protocol Last Admin: 05/23/18 21:08 Dose: 150 mg Thiamine HCl (Vitamin B1 Tab) 50 mg PO DAILY [facility] Last Admin: 05/24/18 09:12 Dose: 50 mg - Labs Labs: 05/22/18 07:00 05/22/18 07:00 - Additional Findings Additional findings: - Constitutional Appears: Non-toxic, No Acute Distress, Resting comfortably in bed - Head Exam Head Exam: ATRAUMATIC, NORMAL INSPECTION, NORMOCEPHALIC - Eye Exam Eye Exam: EOMI, Normal appearance, No scleral icterus or conjuctival injection - ENT Exam ENT Exam: Mucous Membranes Moist, Normal Exam - Neck Exam Neck exam: Positive for: Normal Inspection - Respiratory Exam Respiratory Exam: Clear to Auscultation Bilateral, NORMAL BREATHING PATTERN. absent: Decreased Breath Sounds, Rales, Rhonchi, Wheezes, Respiratory Distress - Cardiovascular Exam Cardiovascular Exam: +S1, +S2, RRR. absent: Tachycardia, JVD, Systolic Murmur - GI/Abdominal Exam GI & Abdominal Exam: Normal Bowel Sounds, Soft. absent: Tenderness - Extremities Exam Extremities exam: Positive for: normal inspection, peripheral pulses present (+2 radials bilaterally) - Back Exam Back exam: No CVA tenderness bilaterally - Neurological Exam Neurological exam: Awake and alert, following all commands shortly, moving all extremities spontaneously, changes position from lying to sitting without issue or distress - Psychiatric Exam Psychiatric exam: not overtly anxious or agitated - Skin Skin Exam: Dry, Normal Color, Warm Assessment and Plan - Assessment and Plan (Free Text) Assessment: This is a 57-year-old PMH of depression, substance abuse (IV Heroin), Hypertension, COPD, and chronic non-compliance who presented [place] [facility] for [place] ideation and depression, and was admitted to psych unit. Nephro consulted for resistant HTN. Plan: 1) Resistant HTN -non-compliance as component +/- withdrawal from heroin -issues with hypotension/orthostasis over the weekend, so meds have been held, BP remains well controlled this AM off all BP control meds and not needing PRN hydralazine, will discontinue antihypertensives -Continue to monitor, can consider low-dose losartan in BP elevates again Case reviewed and discussed with attending, Dr. Saleh At this time, patient is stable from Nephro standpoint, will sign off. Please call with questions or concerns. <Jose Saleh S - Last Filed: 05/24/18 21:20> Objective - Vital Signs/Intake and Output Vital Signs (last 24 hours): Temp Pulse Resp BP Pulse Ox 98 F 73 20 125/86 97 05/24/18 06:15 05/24/18 06:15 05/24/18 06:15 05/24/18 06:15 05/16/18 14:07 - Medications Medications: Current Medications Acetaminophen (Tylenol 325mg Tab) 650 mg PO Q4 PRN PRN Reason: Pain, Mild (1-3) Al Hydrox/Mg Hydrox/Simethicone (Maalox Plus 30 Ml) 30 ml PO DAILY PRN PRN Reason: Upset Stomach Last Admin: 05/21/18 15:53 Dose: 30 ml Albuterol/Ipratropium (Duoneb 3 Mg/0.5 Mg (3 Ml) Ud) 3 ml IH Q2H PRN PRN Reason: Shortness of Breath Diphenhydramine HCl (Benadryl) 50 mg PO Q8 PRN PRN Reason: Allergy symptoms Last Admin: 05/23/18 22:54 Dose: 50 mg Folic Acid (Folic Acid) 1 mg PO DAILY [facility] Last Admin: 05/24/18 09:12 Dose: 1 mg Gabapentin (Neurontin) 600 mg PO HS [facility]; Protocol Last Admin: 05/23/18 21:08 Dose: 600 mg Gabapentin (Neurontin) 300 mg PO BID [facility]; Protocol Haloperidol (Haldol) 5 mg PO Q6 PRN; Protocol PRN Reason: Psychosis Last Admin: 05/24/18 20:47 Dose: 5 mg Lorazepam (Ativan) 0.5 mg PO BID PRN; Protocol PRN Reason: Restlessness Last Admin: 05/24/18 20:47 Dose: 0.5 mg Magnesium Hydroxide (Milk Of Magnesia) 30 ml PO DAILY PRN PRN Reason: Constipation Mirtazapine (Remeron) 30 mg PO HS [facility] Last Admin: 05/23/18 21:08 Dose: 30 mg Multivitamins/Minerals (Therapeutic-M Tab) 1 tab PO DAILY [facility] Last Admin: 05/24/18 09:12 Dose: 1 tab Ondansetron HCl (Zofran Odt) 4 mg PO Q8H PRN PRN Reason: Nausea/Vomiting Last Admin: 05/18/18 06:25 Dose: 4 mg Quetiapine Fumarate (Seroquel) 150 mg PO HS [facility]; Protocol Last Admin: 05/23/18 21:08 Dose: 150 mg Thiamine HCl (Vitamin B1 Tab) 50 mg PO DAILY [facility] Last Admin: 05/24/18 09:12 Dose: 50 mg - Labs Labs: 05/22/18 07:00 05/22/18 07:00 Assessment and Plan - Assessment and Plan (Free Text) Plan: Pt seen and examined. I have reviewed the note of the chief medical officer and agree with it. I have discussed the assessment and plan with the resident. I have reviewed the patient's labs and medications. Pt with HTN that is better controlled. Meds have been adjusted. Will sign off at this time. Reconsult in needed.
[2018-05-24 10:37] VITALS: RESP 20
--- NOTE | 2018-05-24 16:29 | PCM.PYCHPN ---
Psychiatric Progress Note - Psychiatric Progress Note Patient seen today, length of contact: 30min Patient Chief Complaint: "I M still anxious, I don't sleep" Problems Identified/Issues Discussed: Suicide/ homicide prevention, past psychiatric h/o, current psychiatric sympt oms, medical problems, risk/benefits and alternatives of medications, medications compliance, coping strategies, substance abuse h/o, relapse prevention, importance of follow up with psychiatrist and therapist, discharge plan. Medical Problems: see HPI UA positive for corinebacterium Diagnostic Results: 05/16/18 11:00 05/18/18 06:40 Lab Results 05/18/18 06:40: Free T4 1.27 05/18/18 06:40: Sodium 138, Potassium 3.4 L, Chloride 103, Carbon Dioxide 29, Anion Gap 10, BUN 15, Creatinine 0.9, Est GFR ( Amer) > 60, Est GFR (Non- Af Amer) > 60, Random Glucose 123 H, Calcium 9.8, Phosphorus 2.1 L, Magnesium 2.0, Total Bilirubin 0.7, AST 36, ALT 29, Alkaline Phosphatase 79, Total Protein 7.1, Albumin 3.9, Globulin 3.2, Albumin/Globulin Ratio 1.2, Triglycerides 157, Cholesterol 167, LDL Cholesterol Direct 97, HDL Cholesterol 45 05/17/18 06:40: RPR Nonreactive 05/17/18 06:40: TSH 3rd Generation 0.10 L 05/16/18 11:18: Urine Opiates Screen Positive H, Urine Methadone Screen Negative , Ur Barbiturates Screen Negative, Ur Phencyclidine Scrn Negative, Ur Amphetamines Screen Negative, U Benzodiazepines Scrn Positive H, U Oth Cocaine Metabols Negative, U Cannabinoids Screen Negative 05/16/18 11:18: Urine Color Yellow, Urine Appearance Clear, Urine pH 6.0, Ur Specific [place] >= 1.030, Urine Protein 100 H, Urine Glucose (UA) Negative, Urine Ketones >=80, Urine Blood Trace-lysed H, Urine Nitrate Negative, Urine Bilirubin Moderate H, Urine Urobilinogen 0.2, Ur Leukocyte Esterase Negative, Urine RBC 0 - 2, Urine WBC 5 - 10, Ur Epithelial Cells 1 - 3, Urine Bacteria Trace, Urine Other Mucus 05/16/18 11:00: Alcohol, Quantitative < 10 05/16/18 11:00: Salicylates < 1 L, Acetaminophen < 10.0 L 05/16/18 11:00: Sodium 140, Potassium 4.0, Chloride 105, Carbon Dioxide 24, Anion Gap 15, BUN 15, Creatinine 0.9, Est GFR ( Amer) > 60, Est GFR (Non- Af Amer) > 60, Random Glucose 92, Calcium 9.1, Total Bilirubin 1.0, AST 56, ALT 31, Alkaline Phosphatase 80, Total Protein 6.9, Albumin 3.8, Globulin 3.1, Albumin/Globulin Ratio 1.2 05/16/18 11:00: WBC 7.7, RBC 5.11, Hgb 14.2, Hct 43.5, MCV 85.1, MCH 27.8, MCHC 32.6, RDW 15.2 H, Plt Count 192, MPV 10.3, Gran % 85.5 H, Lymph % (Auto) 10.8 L, [place] % (Auto) 3.2, Eos % (Auto) 0.1 L, Baso % (Auto) 0.3, Gran # 6.39, Lymph # (Auto) 0.8 L, [place] # (Auto) 0.2, Eos # (Auto) 0.0, Baso # (Auto) 0.02 Vital Signs Temp Pulse Resp BP Pulse Ox 05/18/18 09:35 157/135 H 05/18/18 08:11 163/105 H 05/18/18 07:00 62 163/105 H 05/18/18 06:48 98.1 F 62 20 163/105 H 05/17/18 20:07 64 154/97 H 05/17/18 17:33 66 168/93 H 05/17/18 16:00 66 168/93 H 05/17/18 13:15 66 188/117 H 05/17/18 13:00 66 198/120 H 05/17/18 12:48 212/143 H 05/17/18 12:37 71 212/143 H 05/17/18 07:15 99.4 F 70 20 198/123 H 05/16/18 16:38 86 159/98 H 05/16/18 14:07 98.0 F 82 18 97 05/16/18 13:56 81 18 159/98 H 97 05/16/18 11:34 98.3 F 74 18 161/109 H 95 Temp Pulse Resp BP Pulse Ox 98.0 F 70 18 100/69 97 05/23/18 07:10 05/23/18 08:46 05/23/18 07:10 05/23/18 08:46 05/16/18 14:07 DSM 5 Symptoms Update: shortly patient is 57-year-old male with a history of depression, opioid use disorder, h/o detoxes and rehabs, recent d/c from the [facility] 02/2018, pt has questionable compliance with meds and follow up appts, came to the hospital reporting depressed mood and possible suicidal ideation. As per ER report pt been increasingly feeling more and more depressed over the past month, states he recently got out of her long-term relationship. Patient has thoughts of suicide by overdose. as per RN report pt is self isolating, not participating in unit activities. No agitation, no aggression. pt was seen at the treatment team meeting, patient seems to be unhappy, patient complained that he cannot sleep, on further questioning patient was not able to sleep well for past 20 years, over all "I feel little better", pt generally pessimistic and hopeless. denied v/a/t hallucinations, denied paranoid ideation. so far pt tolerated meds well, no side effects observed or reported. AIMS 0, no EPS. Impression: DSM 5 Diagnosis: major depressive d/o - recurrent, severe with no psychosis r/o substance induced psychosis Opioid withdrawal Opioid use d/o - severe Cocaine use d/o - moderate Tobacco use d/o - severe Sedative hypnotic use d/o severe, in sustained remission HTN Neuropathy Medication Change: Yes (Neurontin increased) Medical Record Reviewed: Yes Mental Status Examination - Cognitive Function Orientation: Person, Place, Situation Memory: Intact Attention: Poor Concentration: Poor Association: Loose Fund of Knowledge: Poor - Mood Mood: Depressed ("I'm not able to sleep") - Affect Affect: Constricted, Flat - Formal Thought Process Formal Thought Process: No Impairment - Suicidal Ideation Suicidal Ideation: No - Homicidal Ideation Homicidal Ideation: No Goal/Treatment Plan - Goal/Treatment Plan Need for Continued Stay: Remain at risks for inpatient hospitalization, Severe depression anxiety, Discharge may exacerbated symptoms, Severe functional impairment Progress Toward Problem(s) and Goals/Treatment Plan: Milieu/structure/supportive therapy Medical consult was called amLODIPine [Norvasc] 10 mg PO DAILY resumed by medical team Gabapentin [Neurontin] 300 mg PO twice a day as well as 600 mg at the nighttime Mirtazapine [Remeron] 30 mg PO HS resumed for depression Pantoprazole [Protonix EC Tab] 20 mg PO DAILY resumed QUEtiapine [SEROquel] 150 mg PO HS for mood stabilization SW consultation for discharge plan and social issues Family involvement Follow up on labs Will monitor closely Pt was educated about risk/benefits and alternatives of medications, coping strategies (safety plan, suicide prevention), relapse prevention, importance of follow up with psychiatrist and therapist, stay away from drugs/alcohol/smoking Estimated Date of D/C: 05/26/18
[2018-05-25 01:05] LABS: ALDO/PRA RATIO 4.5 Ratio (0.9-28.9)
[2018-05-25] MEDS: Multivitamin With Minerals Tab PO SCH (09:22)
--- NOTE | 2018-05-25 14:59 | PCM.PYCHPN ---
Psychiatric Progress Note - Psychiatric Progress Note Patient seen today, length of contact: 30min Patient Chief Complaint: "I feel lousy today" Problems Identified/Issues Discussed: Suicide/ homicide prevention, past psychiatric h/o, current psychiatric symptoms, medical problems, risk/benefits and alternatives of medications, medications compliance, coping strategies, substance abuse h/o, relapse prevention, importance of follow up with psychiatrist and therapist, discharge plan. Medical Problems: see HPI UA positive for corinebacterium Diagnostic Results: 05/16/18 11:00 05/18/18 06:40 Lab Results 05/18/18 06:40: Free T4 1.27 05/18/18 06:40: Sodium 138, Potassium 3.4 L, Chloride 103, Carbon Dioxide 29, Anion Gap 10, BUN 15, Creatinine 0.9, Est GFR ( Amer) > 60, Est GFR (Non- Af Amer) > 60, Random Glucose 123 H, Calcium 9.8, Phosphorus 2.1 L, Magnesium 2.0, Total Bilirubin 0.7, AST 36, ALT 29, Alkaline Phosphatase 79, Total Protein 7.1, Albumin 3.9, Globulin 3.2, Albumin/Globulin Ratio 1.2, Triglycerides 157, Cholesterol 167, LDL Cholesterol Direct 97, HDL Cholesterol 45 05/17/18 06:40: RPR Nonreactive 05/17/18 06:40: TSH 3rd Generation 0.10 L 05/16/18 11:18: Urine Opiates Screen Positive H, Urine Methadone Screen Negative, Ur Barbiturates Screen Negative, Ur Phencyclidine Scrn Negative, Ur Amphetamines Screen Negative, U Benzodiazepines Scrn Positive H, U Oth Cocaine Metabols Negative, U Cannabinoids Screen Negative 05/16/18 11:18: Urine Color Yellow, Urine Appearance Clear, Urine pH 6.0, Ur Specific [place] >= 1.030, Urine Protein 100 H, Urine Glucose (UA) Negative, Urine Ketones >=80, Urine Blood Trace-lysed H, Urine Nitrate Negative, Urine Bilirubin Moderate H, Urine Urobilinogen 0.2, Ur Leukocyte Esterase Negative, Urine RBC 0 - 2, Urine WBC 5 - 10, Ur Epithelial Cells 1 - 3, Urine Bacteria Trace, Urine Other Mucus 05/16/18 11:00: Alcohol, Quantitative < 10 05/16/18 11:00: Salicylates < 1 L, Acetaminophen < 10.0 L 05/16/18 11:00: Sodium 140, Potassium 4.0, Chloride 105, Carbon Dioxide 24, Anion Gap 15, BUN 15, Creatinine 0.9, Est GFR ( Amer) > 60, Est GFR (Non- Af Amer) > 60, Random Glucose 92, Calcium 9.1, Total Bilirubin 1.0, AST 56, ALT 31, Alkaline Phosphatase 80, Total Protein 6.9, Albumin 3.8, Globulin 3.1, Albumin/Globulin Ratio 1.2 05/16/18 11:00: WBC 7.7, RBC 5.11, Hgb 14.2, Hct 43.5, MCV 85.1, MCH 27.8, MCHC 32.6, RDW 15.2 H, Plt Count 192, MPV 10.3, Gran % 85.5 H, Lymph % (Auto) 10.8 L, [place] % (Auto) 3.2, Eos % (Auto) 0.1 L, Baso % (Auto) 0.3, Gran # 6.39, Lymph # (Auto) 0.8 L, [place] # (Auto) 0.2, Eos # (Auto) 0.0, Baso # (Auto) 0.02 Vital Signs Temp Pulse Resp BP Pulse Ox 05/18/18 09:35 157/135 H 05/18/18 08:11 163/105 H 05/18/18 07:00 62 163/105 H 05/18/18 06:48 98.1 F 62 20 163/105 H 05/17/18 20:07 64 154/97 H 05/17/18 17:33 66 168/93 H 05/17/18 16:00 66 168/93 H 05/17/18 13:15 66 188/117 H 05/17/18 13:00 66 198/120 H 05/17/18 12:48 212/143 H 05/17/18 12:37 71 212/143 H 05/17/18 07:15 99.4 F 70 20 198/123 H 05/16/18 16:38 86 159/98 H 05/16/18 14:07 98.0 F 82 18 97 05/16/18 13:56 81 18 159/98 H 97 05/16/18 11:34 98.3 F 74 18 161/109 H 95 Temp Pulse Resp BP Pulse Ox 98.0 F 70 18 100/69 97 05/23/18 07:10 05/23/18 08:46 05/23/18 07:10 05/23/18 08:46 05/16/18 14:07 DSM 5 Symptoms Update: shortly patient is 57-year-old male with a history of depression, opioid use disorder, h/o detoxes and rehabs, recent d/c from the [facility] 02/2018, pt has questionable compliance with meds and follow up appts, came to the hospital reporting depressed mood and possible suicidal ideation. As per ER report pt been increasingly feeling more and more depressed over the past month, states he recently got out of her long-term relationship. Patient has thoughts of suicide by overdose. as per RN report pt is self isolating, not participating in unit activities. No agitation, no aggression. pt was seen inches the medical students, patient seems to be drowsy, sleeping, patient seems to be unhappy "I feel lousy today", patient reported that he slept little better, pt generally pessimistic and hopeless, but reported "feeling little better". denied v/a/t hallucinations, denied paranoid ideation. so far pt tolerated meds well, no side effects observed or reported. AIMS 0, no EPS. Impression: DSM 5 Diagnosis: major depressive d/o - recurrent, severe with no psychosis r/o substance induced psychosis Opioid withdrawal Opioid use d/o - severe Cocaine use d/o - moderate Tobacco use d/o - severe Sedative hypnotic use d/o severe, in sustained remission HTN Neuropathy Medication Change: Yes (remeron increased) Medical Record Reviewed: Yes Consults ordered or reviewed: medical consult appreciated see notes for more detailed information Mental Status Examination - Cognitive Function Orientation: Person, Place, Situation Memory: Intact Attention: Poor Concentration: Poor Association: Loose Fund of Knowledge: Poor - Mood Mood: Depressed ("I'm not able to sleep") - Affect Affect: Constricted, Flat - Formal Thought Process Formal Thought Process: No Impairment - Suicidal Ideation Suicidal Ideation: No - Homicidal Ideation Homicidal Ideation: No Goal/Treatment Plan - Goal/Treatment Plan Need for Continued Stay: Remain at risks for inpatient hospitalization, Severe depression anxiety, Discharge may exacerbated symptoms, Severe functional impairment Progress Toward Problem(s) and Goals/Treatment Plan: Milieu/structure/supportive therapy Medical consult was called amLODIPine [Norvasc] 10 mg PO DAILY resumed by medical team Gabapentin [Neurontin] 300 mg PO twice a day as well as 600 mg at the nighttime Mirtazapine [Remeron] 45 mg PO HS resumed for depression Pantoprazole [Protonix EC Tab] 20 mg PO DAILY resumed QUEtiapine [SEROquel] 150 mg PO HS for mood stabilization SW consultation for discharge plan and social issues Family involvement Follow up on labs Will monitor closely Pt was educated about risk/benefits and alternatives of medications, coping strategies (safety plan, suicide prevention), relapse prevention, importance of follow up with psychiatrist and therapist, stay away from drugs/alcohol/smoking Estimated Date of D/C: 05/26/18
[2018-05-26] MEDS: Multivitamin With Minerals Tab PO SCH (09:26)
--- NOTE | 2018-05-26 16:03 | PCM.PYCHPN ---
Psychiatric Progress Note - Psychiatric Progress Note Patient seen today, length of contact: 30min Patient Chief Complaint: "I feel little better today" Problems Identified/Issues Discussed: Suicide/ homicide prevention, past psychiatric h/o, current psychiatric symptoms, medical problems, risk/benefits and alternatives of medications, medications compliance, coping strategies, substance abuse h/o, relapse prevention, importance of follow up with psychiatrist and therapist, discharge plan. Medical Problems: see HPI UA positive for corinebacterium Diagnostic Results: 05/16/18 11:00 05/18/18 06:40 Lab Results 05/18/18 06:40: Free T4 1.27 05/18/18 06:40: Sodium 138, Potassium 3.4 L, Chloride 103, Carbon Dioxide 29, Anion Gap 10, BUN 15, Creatinine 0.9, Est GFR ( Amer) > 60, Est GFR (Non- Af Amer) > 60, Random Glucose 123 H, Calcium 9.8, Phosphorus 2.1 L, Magnesium 2.0, Total Bilirubin 0.7, AST 36, ALT 29, Alkaline Phosphatase 79, Total Protein 7.1, Albumin 3.9, Globulin 3.2, Albumin/Globulin Ratio 1.2, Triglycerides 157, Cholesterol 167, LDL Cholesterol Direct 97, HDL Cholesterol 45 05/17/18 06:40: RPR Nonreactive 05/17/18 06:40: TSH 3rd Generation 0.10 L 05/16/18 11:18: Urine Opiates Screen Positive H, Urine Methadone Screen Negative, Ur Barbiturates Screen Negative, Ur Phencyclidine Scrn Negative, Ur Amphetamines Screen Negative, U Benzodiazepines Scrn Positive H, U Oth Cocaine Metabols Negative, U Cannabinoids Screen Negative 05/16/18 11:18: Urine Color Yellow, Urine Appearance Clear, Urine pH 6.0, Ur Specific [place] >= 1.030, Urine Protein 100 H, Urine Glucose (UA) Negative, Urine Ketones >=80, Urine Blood Trace-lysed H, Urine Nitrate Negative, Urine Bilirubin Moderate H, Urine Urobilinogen 0.2, Ur Leukocyte Esterase Negative, Urine RBC 0 - 2, Urine WBC 5 - 10, Ur Epithelial Cells 1 - 3, Urine Bacteria Trace, Urine Other Mucus 05/16/18 11:00: Alcohol, Quantitative < 10 05/16/18 11:00: Salicylates < 1 L, Acetaminophen < 10.0 L 05/16/18 11:00: Sodium 140, Potassium 4.0, Chloride 105, Carbon Dioxide 24, Anion Gap 15, BUN 15, Creatinine 0.9, Est GFR ( Amer) > 60, Est GFR (Non- Af Amer) > 60, Random Glucose 92, Calcium 9.1, Total Bilirubin 1.0, AST 56, ALT 31, Alkaline Phosphatase 80, Total Protein 6.9, Albumin 3.8, Globulin 3.1, Albumin/Globulin Ratio 1.2 05/16/18 11:00: WBC 7.7, RBC 5.11, Hgb 14.2, Hct 43.5, MCV 85.1, MCH 27.8, MCHC 32.6, RDW 15.2 H, Plt Count 192, MPV 10.3, Gran % 85.5 H, Lymph % (Auto) 10.8 L, [place] % (Auto) 3.2, Eos % (Auto) 0.1 L, Baso % (Auto) 0.3, Gran # 6.39, Lymph # (Auto) 0.8 L, [place] # (Auto) 0.2, Eos # (Auto) 0.0, Baso # (Auto) 0.02 Vital Signs Temp Pulse Resp BP Pulse Ox 05/18/18 09:35 157/135 H 05/18/18 08:11 163/105 H 05/18/18 07:00 62 163/105 H 05/18/18 06:48 98.1 F 62 20 163/105 H 05/17/18 20:07 64 154/97 H 05/17/18 17:33 66 168/93 H 05/17/18 16:00 66 168/93 H 05/17/18 13:15 66 188/117 H 05/17/18 13:00 66 198/120 H 05/17/18 12:48 212/143 H 05/17/18 12:37 71 212/143 H 05/17/18 07:15 99.4 F 70 20 198/123 H 05/16/18 16:38 86 159/98 H 05/16/18 14:07 98.0 F 82 18 97 05/16/18 13:56 81 18 159/98 H 97 05/16/18 11:34 98.3 F 74 18 161/109 H 95 Temp Pulse Resp BP Pulse Ox 98.0 F 70 18 100/69 97 05/23/18 07:10 05/23/18 08:46 05/23/18 07:10 05/23/18 08:46 05/16/18 14:07 DSM 5 Symptoms Update: shortly patient is 57-year-old male with a history of depression, opioid use disorder, h/o detoxes and rehabs, recent d/c from the [facility] 02/2018, pt has questionable compliance with meds and follow up appts, came to the hospital reporting depressed mood and possible suicidal ideation. As per ER report pt b een increasingly feeling more and more depressed over the past month, states he recently got out of her long-term relationship. Patient has thoughts of suicide by overdose. as per RN report pt is self isolating, but more visible in the unit. No agitation, no aggression. pt was seen in social economist or fast together with SW and medical students, patient seems to be more alert, reported that he slept better last night, patient reported his mood to be "not that bad". patient denied thoughts of h arming himself or others denied intent or plan. denied v/a/t hallucinations, denied paranoid ideation. so far pt tolerated meds well, no side effects observed or reported. AIMS 0, no EPS. Impression: DSM 5 Diagnosis: major depressive d/o - recurrent, severe with no psychosis r/o substance induced psychosis Opioid withdrawal Opioid use d/o - severe Cocaine use d/o - moderate Tobacco use d/o - severe Sedative hypnotic use d/o severe, in sustained remission HTN Neuropathy Medication Change: Yes (Ativan discontinued) Medical Record Reviewed: Yes Consults ordered or reviewed: medical consult appreciated see notes for more detailed information Mental Status Examination - Cognitive Function Orientation: Person, Place, Situation Memory: Intact Attention: Poor (some improvement) Concentration: Poor (some improvement) Association: Loose (some improvement) Fund of Knowledge: WNL - Mood Mood: Depressed ("I feel little better") - Affect Affect: Constricted, Flat - Formal Thought Process Formal Thought Process: No Impairment - Suicidal Ideation Suicidal Ideation: No - Homicidal Ideation Homicidal Ideation: No Goal/Treatment Plan - Goal/Treatment Plan Need for Continued Stay: Remain at risks for inpatient hospitalization, Severe depression anxiety, Discharge may exacerbated symptoms, Severe functional impairment Progress Toward Problem(s) and Goals/Treatment Plan: Milieu/structure/supportive therapy Medical consult appreciated amLODIPine [Norvasc] 10 mg PO DAILY resumed by medical team Gabapentin [Neurontin] 300 mg PO twice a day as well as 600 mg at the nighttime Mirtazapine [Remeron] 45 mg PO HS resumed for depression Pantoprazole [Protonix EC Tab] 20 mg PO DAILY resumed QUEtiapine [SEROquel] 150 mg PO HS for mood stabilization SW consultation for discharge plan and social issues Family involvement Follow up on labs Will monitor closely Pt was educated about risk/benefits and alternatives of medications, coping strategies (safety plan, suicide prevention), relapse prevention, importance of follow up with psychiatrist and therapist, stay away from drugs/alcohol/smoking Estimated Date of D/C: 05/26/18
[2018-05-27 07:19] VITALS: BP 119/89; PULSE 84; TEMP 98
[2018-05-27] MEDS: Multivitamin With Minerals Tab PO SCH (09:40)
--- NOTE | 2018-05-27 15:31 | PCM.PYCHDC ---
Mental Status Examination - Mental Status Examination Orientation: Person, Place, Situation, Time Memory: Intact Mood: Neutral Affect: Constricted (but more reactive and mood-congruent) Speech: Appropriate (but underproductive) Attention: Poor (baseline but with much improvement) Concentration: Poor (baseline with much improvement) Association: WNL Fund of Knowledge: WNL Formal Thought Process: No Impairment Description of patient's judgement and insight: Pt has improved insight into mental and medical illness, pt was compliant with medications and unit rules and regulations, pt was going to groups, was calm, cooperative, socially appropriate, no behavioral incidents, no agitation, no aggression. Psychotic Thoughts and Behaviors: Pt denied v/a/t hallucinations, denied paranoid ideations, pt does not appear to be psychotic, and thought process is goal directed. Suicidal Ideation: No Current Homicidal Ideation?: No Plan: pt adamantly denied thoughts of harming self or others denied intent or plan. Discharge Summary - Discharge Note Reason for Hospitalization: pt was admitted for evaluation of depressive symptoms, possible suicidal ideat ion with the plan to overdose on drugs. patient improved significantly denied any thoughts of killing himself or others at the time of discharge. Psychiatric History (includes Medical, Family, Personal Hx): see HPI Laboratory Data: 05/22/18 07:00 05/22/18 07:00 Lab Results 05/22/18 07:00: Sodium 140, Potassium 4.5, Chloride 103, Carbon Dioxide 27, Anio n Gap 14, BUN 34 H, Creatinine 1.0, Est GFR ( Amer) > 60, Est GFR (Non-Af Amer) > 60, Random Glucose 114 H, Calcium 10.3, Total Bilirubin 0.6, AST 24, ALT 41, Alkaline Phosphatase 60, Total Protein 7.0, Albumin 4.1, Globulin 2.9, Albumin/Globulin Ratio 1.4 05/22/18 07:00: WBC 11.5 H D, RBC 5.38, Hgb 15.1, Hct 45.5, MCV 84.6, MCH 28.1, MCHC 33.2, RDW 15.2 H, Plt Count 220, MPV 10.9 05/21/18 16:46: Urine Creatinine 127, Urine Microalbumin 3.4, Microalb/Creat Ratio 27 05/21/18 16:46: U Random Total Protein 102 05/21/18 16:46: Urine Color Yellow, Urine Appearance Clear, Urine pH 6.5, Ur Specific [place] 1.015, Urine Protein Negative, Urine Glucose (UA) Negative, Urine Ketones Negative, Urine Blood Negative, Urine Nitrate Negative, Urine Bilirubin Negative, Urine Urobilinogen 0.2, Ur Leukocyte Esterase Negative 05/20/18 12:14: Renin 0.67, Aldosterone 3, Aldosterone/Renin Ratio 4.5 05/20/18 12:14: Plasma Metanephrine 28, Plasma Normetanephrine 277 H, Plas Total Metaneph 305 H 05/20/18 12:14: Renin 0.68 05/20/18 12:14: Sodium 139, Potassium 4.5, Chloride 101, Carbon Dioxide 30, Anion Gap 12, BUN 23 H, Creatinine 1.2, Est GFR ( Amer) > 60, Est GFR (No n-Af Amer) > 60, Random Glucose 128 H, Calcium 11.2 H, Phosphorus 4.2, Magnesium 2.0, Total Bilirubin 0.7, AST 32, ALT 33, Alkaline Phosphatase 80, Total Protein 8.5 H, Albumin 4.8, Globulin 3.7, Albumin/Globulin Ratio 1.3 05/18/18 06:40: Hemoglobin A1c 5.6 05/18/18 06:40: Free T4 1.27 05/18/18 06:40: Sodium 138, Potassium 3.4 L, Chloride 103, Carbon Dioxide 29, Anion Gap 10, BUN 15, Creatinine 0.9, Est GFR ( Amer) > 60, Est GFR (Non- Af Amer) > 60, Random Glucose 123 H, Calcium 9.8, Phosphorus 2.1 L, Magnesium 2.0, Total Bilirubin 0.7, AST 36, ALT 29, Alkaline Phosphatase 79, Total Protein 7.1, Albumin 3.9, Globulin 3.2, Albumin/Globulin Ratio 1.2, Triglycerides 157, Cholesterol 167, LDL Cholesterol Direct 97, HDL Cholesterol 45 05/17/18 06:40: RPR Nonreactive 05/17/18 06:40: TSH 3rd Generation 0.10 L 05/16/18 11:18: Urine Opiates Screen Positive H, Urine Methadone Screen Negative, Ur Barbiturates Screen Negative, Ur Phencyclidine Scrn Negative, Ur Amphetamines Screen Negative, U Benzodiazepines Scrn Positive H, U Oth Cocaine Metabols Negative, U Cannabinoids Screen Negative 05/16/18 11:18: Urine Color Yellow, Urine Appearance Clear, Urine pH 6.0, Ur Specific [place] >= 1.030, Urine Protein 100 H, Urine Glucose (UA) Negative, Urine Ketones >=80, Urine Blood Trace-lysed H, Urine Nitrate Negative, Urine Bilirubin Moderate H, Urine Urobilinogen 0.2, Ur Leukocyte Esterase Negative, Urine RBC 0 - 2, Urine WBC 5 - 10, Ur Epithelial Cells 1 - 3, Urine Bacteria Trace, Urine Other Mucus 05/16/18 11:00: Alcohol, Quantitative < 10 05/16/18 11:00: Salicylates < 1 L, Acetaminophen < 10.0 L 05/16/18 11:00: Sodium 140, Potassium 4.0, Chloride 105, Carbon Dioxide 24, Anion Gap 15, BUN 15, Creatinine 0.9, Est GFR ( Amer) > 60, Est GFR (Non- Af Amer) > 60, Random Glucose 92, Calcium 9.1, Total Bilirubin 1.0, AST 56, ALT 31, Alkaline Phosphatase 80, Total Protein 6.9, Albumin 3.8, Globulin 3.1, Alb umin/Globulin Ratio 1.2 05/16/18 11:00: WBC 7.7, RBC 5.11, Hgb 14.2, Hct 43.5, MCV 85.1, MCH 27.8, MCHC 32.6, RDW 15.2 H, Plt Count 192, MPV 10.3, Gran % 85.5 H, Lymph % (Auto) 10.8 L, [place] % (Auto) 3.2, Eos % (Auto) 0.1 L, Baso % (Auto) 0.3, Gran # 6.39, Lymph # (Auto) 0.8 L, [place] # (Auto) 0.2, Eos # (Auto) 0.0, Baso # (Auto) 0.02 Vital Signs Temp Pulse Resp BP Pulse Ox 05/27/18 07:18 98.0 F 84 20 119/89 05/26/18 15:36 75 137/112 H 05/26/18 07:15 98.1 F 72 20 127/86 05/25/18 16:00 77 133/98 H 05/25/18 07:23 98.4 F 89 20 116/71 05/24/18 06:15 98 F 73 20 125/86 05/23/18 16:49 86 115/82 05/23/18 08:46 70 100/69 05/23/18 08:42 70 100/69 05/23/18 07:10 98.0 F 70 18 100/69 05/22/18 16:00 79 113/87 05/22/18 09:14 120/90 05/22/18 07:00 98.1 F 67 18 120/90 05/21/18 21:17 82 123/96 H 05/21/18 21:16 82 123/96 H 05/21/18 08:09 121 H 146/101 H 05/21/18 08:08 146/101 H 05/21/18 07:33 98.6 F 69 20 146/109 H 05/21/18 02:36 85 131/96 H 05/21/18 01:54 85 131/96 H 05/20/18 16:00 84 114/80 05/20/18 14:04 100 H 114/85 05/20/18 09:01 142/99 H 05/20/18 08:56 150/100 H 05/20/18 07:04 98.0 F 98 H 20 158/104 H 05/20/18 02:11 72 135/79 05/19/18 22:07 75 150/109 H 05/19/18 21:49 75 159/118 H 05/19/18 16:00 82 145/104 H 05/19/18 13:28 78 158/100 H 05/19/18 13:25 78 158/100 H 05/19/18 09:18 74 164/121 H 05/19/18 09:04 164/121 H 05/19/18 07:17 98.8 F 74 20 164/121 H 05/19/18 03:09 74 145/109 H 05/18/18 20:14 69 141/102 H 05/18/18 16:00 68 143/104 H 05/18/18 14:00 70 138/107 H 05/18/18 13:45 86 168/117 H 18 11:44 86 168/117 H 05/18/18 11:30 86 178/125 H 05/18/18 09:35 157/135 H 05/18/18 09:30 86 157/135 H 05/18/18 08:11 163/105 H 05/18/18 07:00 62 163/105 H 05/18/18 06:48 98.1 F 62 20 163/105 H 05/17/18 20:07 64 154/97 H 05/17/18 17:33 66 168/93 H 05/17/18 16:00 66 168/93 H 05/17/18 13:15 66 188/117 H 05/17/18 13:00 66 198/120 H 05/17/18 12:48 212/143 H 05/17/18 12:37 71 212/143 H 05/17/18 07:15 99.4 F 70 20 198/123 H 05/16/18 16:38 86 159/98 H 05/16/18 14:07 98.0 F 82 18 97 05/16/18 13:56 81 18 159/98 H 97 05/16/18 11:34 98.3 F 74 18 161/109 H 95 Consultations:: List each consultation separately and include: 1. Reason for request. 2. Findings. 3. Follow-up Consultations: medical consult appreciated see notes for more detailed information Summary of Hospital Course include:: 1. Description of specific treatment plan utilized for patients during their course of treatmen. 2. Summarize the time- course for resolution of acute symptoms and/or regressed behaviors. 3. Describe issues identified and worked on during hospitalization. 4. Describe medication utilized. 5. Describe medical problems identified and treated. 6. Reassessment of suicide risk Summary of Hospital Course: shortly patient is 57-year-old male with a history of depression, opioid use disorder, h/o detoxes and rehabs, recent d/c from the [facility] 02/2018, pt has questionable compliance with meds and follow up appts, came to the hospital reporting depressed mood and possible suicidal ideation. As per ER report pt been increasingly feeling more and more depressed over the past month, states he recently got out of her long-term relationship. Patient has thoughts of suicide by overdose. please see admission note for more detailed information d/c summary from [facility] indicated that pt long h/o of IV or intranasally opioid use since age 14, however, he states he stopped for 20 years in between. Since 1998 he has increased and steadily used. He had been admitted to detox twice and rehabilitation also twice. He overdosed on heroin twice and survived. He uses cocaine intranasally on and off Alcohol occasionally and cigarette 1 per packet day He was using Xanax "a lot" but he was able to quit in 2007 with much complication. pt was d/c to [facility] [place]. pt was d/c on the following meds: amLODIPine [Norvasc] 10 mg PO DAILY resumed by medical team Cephalexin [Keflex] 500 mg PO TID, Completed the course Gabapentin [Neurontin] 300 mg PO TID was increased to 300 mg twice a day and 600 mg at the nighttime Losartan [Cozaar] 100 mg PO DAILY up to the medical team Mirtazapine [Remeron] 15 mg PO HS was increased to 45 mg at the nighttime for mood as well as insomnia Pantoprazole [Protonix EC Tab] 20 mg PO DAILY resumed QUEtiapine [SEROquel] 50 mg PO HS wwas increased to 150 mg at the nighttime from mood stabilization Patient also was on multivitamins, thiamine, folic acid Tapering dose of benzodiazepines Patient tolerated all medications well, no side effects observed or reported, aims 0, no EPS. Over the course of this hospitalization pt was attending groups, pt also had medication management, had therapeutic milieu. Overall pt improved significantly, pt's affect became brighter, pt was less depressed, has realistic future oriented plans, [facility]. pts insight improved as well and soon pt deemed to be ready for discharge. At the time of the discharge pt denied been depressed, but upset that he was not accepted to inpatient rehab, but denied thoughts of harming self or others, denied psychotic symptoms, and pt does not appeared to be psychotic, denied been anxious, pt is not in imminent danger to self or others, pt was referred to outpatient program, information about follow up appointment [facility] program, time and address provided to the pt, it is patient responsibility to follow up with o utpatient clinic, PMD as well as specialists (see SW note for more detailed information). pt also will f/u with [facility] rehab program himself. In case pt will need to obtain results of studies pending at discharge pt was provided with contact information of Psychiatric Inpatient unit [phone] as well as Medical Record Department [phone]. Naltrexone treatment not indicated at this time, pt was using opioids since his teenage years, most likely will relapse. Counseling about smoking and alcohol cessation provided AA meetings as well as smoking cessation treatment program information was provided by the pt was provided with prescriptions for all of medications (please see medication reconciliation form) Pt was educated about safety plan in case of worsening of symptoms or in case of suicidal or homicidal ideation call 911 or go to the nearest ER, also was educated to take meds as prescribed and stay away from drugs, pt verbalized understanding. - Diagnosis (1) Depression Current Visit: Yes Status: Chronic Priority: High (2) Opioid use disorder, severe, dependence Current Visit: No Status: Chronic Priority: High - Final Diagnosis (DSM 5) Condition upon Discharge: IMPROVED Disposition: HOME/ ROUTINE Follow-up Treatment Plan: At the time of the discharge pt denied been depressed, but upset that he was not accepted to inpatient rehab, but denied thoughts of harming self or others, denied psychotic symptoms, and pt does not appeared to be psychotic, denied been anxious, pt is not in imminent danger to self or others, pt was referred to outpatient program, information about follow up appointment [facility], time and address provided to the pt, it is patient responsibility to follow up with outpatient clinic, PMD as well as specialists (see note for more detailed information). pt also will f/u with [facility] rehab program himself. In case pt will need to obtain results of studies pending at discharge pt was provided with contact information of Psychiatric Inpatient unit [phone] as well as Medical Record Department [phone]. Naltrexone treatment not indicated at this time, pt was using opioids since his teenage years, most likely will relapse. Counseling about smoking and alcohol cessation provided AA meetings as well as smoking cessation treatment program information was provided by the pt was provided with prescriptions for all of medications (please see medication reconciliation form) Pt was educated about safety plan in case of worsening of symptoms or in case of suicidal or homicidal ideation call 911 or go to the nearest ER, also was educated to take meds as prescribed and stay away from drugs, pt verbalized understanding. Prescriptions/Medication Reconciliation: DiphenhydrAMINE [Benadryl] 50 mg PO BID PRN #14 cap PRN Reason: Allergy Symptoms Folic Acid 1 mg PO DAILY #14 tab Gabapentin [Neurontin] 600 mg PO HS #14 tab Gabapentin [Neurontin] 300 mg PO BID #30 cap Mirtazapine [Remeron] 45 mg PO DAILY #14 tab.rapdis Multimineral/Multivitamin [Therapeutic-M Tab] 1 tab PO DAILY #14 tab QUEtiapine [Seroquel] 100 mg PO HS #14 tab QUEtiapine [SEROquel] 50 mg PO HS #14 tab Thiamine [Vitamin B1 Tab] 50 mg PO DAILY #14 tab - Smoking Cessation Smoking Cessation Medication prescribed: No Reason for not providing: tp did not want to - Antipsychotic Medications Pt discharged on 2 or more routine antipsychotic medications: No
== END 2018-05-27 15:45 | disposition home or self-care (01) | DRG 430 ==
LOC: ED 10:12 → ERH 12:43 → PSYC 14:41
PROVIDERS: ADMIT Psychiatry & Neurology Psychiatry; ATTEND Psychiatry & Neurology Psychiatry
DX: F33.2 Major depressive disorder, recurrent severe without psychotic features (principal); F11.23 Opioid dependence with withdrawal; J44.9 Chronic obstructive pulmonary disease, unspecified; F14.90 Cocaine use, unspecified, uncomplicated; I16.0 Hypertensive urgency; I45.10 Unspecified right bundle-branch block; G62.9 Polyneuropathy, unspecified; F13.21 Sedative, hypnotic or anxiolytic dependence, in remission; F17.210 Nicotine dependence, cigarettes, uncomplicated; G47.00 Insomnia, unspecified; R45.851 Suicidal ideations; Z59.0 Homelessness; Z91.14 Patient's other noncompliance with medication regimen; Z91.19 Patient's noncompliance with other medical treatment and regimen

== ENCOUNTER 2018-08-09 15:48 | Emergency (ER) | payer MEDICAID ==
[2018-08-09 16:07] VITALS: BMI 25.0
[2018-08-09 16:14] VITALS: TEMP 99
--- NOTE | 2018-08-09 16:38 | ED PDOC ---
Arrival/HPI - General Chief Complaint: High Blood Pressure Time Seen by Provider: 08/09/18 15:49 Historian: Patient - History of Present Illness Narrative History of Present Illness (Text): 08/09/18 15:49 Valentín Boston is a 57 year old male, with a past medical history of substance abuse, who was brought in by police to the emergency department for high blood pressure. Patient's blood pressure upon arrival (203/103) has i mproved to 170 systolic. Patient has a long standing noncompliance with medication. Patient denies fevers, chills, headache, dizziness, chest pain, shortness of breath, dyspnea on exertion, cough, abdominal pain, nausea, vomiting, diarrhea, back pain, neck pain, or any other complaints. Time/Duration: Prior to Arrival Symptom Onset: Sudden Activities at Onset: Light Context: Home Past Medical History - Provider Review Nursing Documentation Reviewed: Yes - Infectious Disease Hx of Infectious Diseases: None - Tetanus Immunization Tetanus Immunization: Unknown - Cardiac Hx Hypertension: Yes (non complaint.) - Pulmonary Hx Chronic Obstructive Pulmonary Disease (COPD): Yes - Neurological Hx Seizures: Yes - HEENT Hx HEENT Disorder: No - Renal Hx Renal Disorder: Yes Hx Kidney Stones: Yes - Endocrine/Metabolic Hx Endocrine Disorders: No - Hematological/Oncological Hx Cancer: No - Integumentary Hx Dermatological Disorder: Yes Other/Comment: red rash to ble, left knee bruise and abrasion, left arm abrasions, unkempt with dirty hands fingernails and toenails, tatoos. reddness buttocks - Musculoskeletal/Rheumatological Hx Falls: No - Gastrointestinal Hx Irritable Bowel: No - Genitourinary/Gynecological Hx Sexually Transmitted Diseases: No - Psychiatric Hx Psychophysiologic Disorder: Yes (HEROIN AND COCAINE ABUSE,SNIFFS IVDU,DRINKS ALCOHOL ON OCCASION,SMOKES CIGA) Hx Emotional Abuse: No Hx Physical Abuse: No Hx Substance Use: Yes - Surgical History Hx Musculoskeletal Surgery: Yes (carpal tunnel right) - Anesthesia Hx Anesthesia: Yes Hx Anesthesia Reactions: No Hx Malignant Hyperthermia: No - Suicidal Assessment Feels Threatened In Home Enviroment: No Family/Social History - Physician Review Nursing Documentation Reviewed: Yes Family/Social History: No Known Family HX Smoking Status: Heavy Smoker > 10 Cigarettes Daily Hx Alcohol Use: Yes Hx Substance Use: Yes Substance used: heroin iv or inh Hx Substance Use Treatment: No Allergies/Home Meds Allergies/Adverse Reactions: Allergies ibuprofen [From Motrin] Allergy (Verified 08/09/18 16:14) RASH naproxen [From Aleve] Allergy (Verified 08/09/18 16:14) ANAPHYLAXIS zolpidem [From Ambien] Allergy (Verified 08/09/18 16:14) HEADACHE anti inflammatories Allergy (Intermediate, Uncoded 08/09/18 16:14) SWELLING Home Medications: Home Meds Medication Instructions Recorded Confirmed Cyanocobalamin [Vitamin B12] 50 mg PO DAILY 06/02/18 06/02/18 Gabapentin [Neurontin] 300 mg PO BID 06/02/18 06/02/18 M-Vit,Tx,Iron,Mins/Calc/Folic 1 each PO DAILY 06/02/18 06/02/18 [Thera-M Caplet] QUEtiapine [SEROquel] 50 mg PO HS 06/02/18 06/02/18 QUEtiapine [SEROquel] 100 mg PO HS 06/02/18 06/02/18 RX: Folic Acid 1 mg PO DAILY 06/02/18 06/02/18 RX: Gabapentin 600 mg PO HS 06/02/18 06/02/18 Review of Systems - Physician Review All systems were reviewed & negative as marked: Yes - Review of Systems Constitutional: absent: Fevers, Night Sweats Respiratory: absent: SOB, Cough Cardiovascular: absent: Chest Pain Gastrointestinal: absent: Abdominal Pain, Diarrhea, Nausea, Vomiting Genitourinary Male: absent: Dysuria Musculoskeletal: absent: Back Pain, Neck Pain Neurological: absent: Headache, Dizziness Physical Exam Vital Signs Reviewed: Yes Vital Signs Temp Pulse Resp BP Pulse Ox 08/09/18 15:49 99 F 61 18 203/103 H 95 Temperature: Afebrile Blood Pressure: Hypertensive Pulse: Regular Respiratory Rate: Normal Appearance: Positive for: Well-Appearing, Non-Toxic, Comfortable Pain Distress: None Mental Status: Positive for: Alert and Oriented X 3 - Systems Exam Head: Present: Atraumatic, Normocephalic Pupils: Present: PERRL Extroacular Muscles: Present: EOMI Conjunctiva: Present: Normal Mouth: Present: Moist Mucous Membranes Neck: Present: Normal Range of Motion Respiratory/Chest: Present: Clear to Auscultation, Good Air Exchange. No: Respiratory Distress, Accessory Muscle Use Cardiovascular: Present: Regular Rate and Rhythm, Normal S1, S2. No: Murmurs Abdomen: No: Tenderness, Distention, Peritoneal Signs Back: Present: Normal Inspection Upper Extremity: Present: Normal Inspection. No: Cyanosis, Edema Lower Extremity: Present: Normal Inspection. No: Edema Neurological: Present: GCS=15, CN II-XII Intact, Speech Normal Skin: Present: Warm, Dry, Normal Color. No: Rashes Psychiatric: Present: Alert, Oriented x 3, Normal Insight, Normal Concentration Medical Decision Making ED Course and Treatment: 08/09/18 15:49 Impression: Patient is a 57 year old male who presents to the emergency department brought in by police with high blood pressure Plan: -- Apresoline -- Reassess and Disposition Progress: 08/09/18 16:55 Patient is medically cleared and is pardoned from the ER. 08/09/18 16:58 Reviewed EKG, shows: NSR at 60 BPM, RBBB, NO ST / T wave changes, LVH, unchanged compared to previous 08/09/18 21:03 asytmpatomtic essential htn. b/p med dosed. b/p improved medically cleared. - EKG Interpretation Interpreted by ED Physician: Yes Type: 12 lead EKG - Medication Orders Current Medication Orders: Discontinued Medications Hydralazine HCl (Apresoline) 10 mg PO STAT STA Stop: 08/09/18 16:26 - Scribe Statement The provider has reviewed the documentation as recorded by the Scribe Alirio Escalante All medical record entries made by the Scribe were at my direction and personally dictated by me. I have reviewed the chart and agree that the record accurately reflects my personal performance of the history, physical exam, medical decision making, and the department course for this patient. I have also personally directed, reviewed, and agree with the discharge instructions and disposition. Disposition/Present on Arrival - Present on Arrival Any Indicators Present on Arrival: No History of DVT/PE: No History of Uncontrolled Diabetes: No Urinary Catheter: No History of Decub. Ulcer: No History Surgical Site Infection Following: None - Disposition Have Diagnosis and Disposition been Completed?: Yes Diagnosis: High blood pressure Disposition: HOME/ ROUTINE Disposition Time: 19:00 Condition: STABLE Discharge Instructions (ExitCare): High Blood Pressure in Adults Additional Instructions: pt cleared for incarceration Referrals: Diana Franco DO [Primary Care Provider] - Follow up with primary Forms: TabbedOut (Namibian)
[2018-08-09 19:18] VITALS: BP 166/97; PULSE 63; RESP 24; O2SAT 95
--- NOTE | 2018-08-10 10:21 | CARD ---
APPROVED REPORT Date of service: 08/09/2018 EKG Measurement Heart [id number] <Conclusion> Normal sinus rhythm Possible Left atrial enlargement Left axis deviation Incomplete right bundle branch block Left ventricular hypertrophy Abnormal ECG
== END 2018-08-09 19:55 | disposition home or self-care (01) ==
LOC: ED 15:48
DX: I10 Essential (primary) hypertension (principal)